=== PATIENT | male | born 1945 | race Caucasian/White ===

== ENCOUNTER 2023-06-20 08:39 | Outpatient (REF) | payer MEDICARE, SELFPAY ==
[2023-06-20 09:45] LABS: MANUAL DIFF FLAG NO
[2023-06-20 09:51] LABS: Basophils Absolute Auto 0.1 X10*3/uL (0.0-0.2); Basophils Percent Auto 0.7 % (0-2); Eosinophils Absolute Auto 0.4 X10*3/uL (0.0-0.4); Eosinophils Percent Auto 5.8 % (0-4); Hematocrit 51.6 % (42.0-52.0); Hemoglobin 17.8 g/dl (14.0-18.0); Imm Gran Abs Auto 0.04 X10*3/uL (0.00-0.03); Imm Gran Pct Auto 0.6 % (0.0-0.4); Lymphocytes Absolute Auto 1.5 X10*3/uL (1.2-4.9); Mean Corpuscular HGB Conc 34.5 g/dl (31.0-36.0); Mean Corpuscular Hemoglobin 30.7 pg (27.0-33.0); Mean Platelet Volume 9.7 fL (9.4-12.4); Monocytes Absolute Auto 0.6 X10*3/uL (0.1-1.2); Monocytes Percent Auto 8.9 % (2-11); Neutrophils Absolute Auto 4.5 x10*3/uL (2.0-8.3); Platelet Count 257 X10*3/uL (160-400); Red Cell Distribution Width 12.8 % (11.0-16.0); White Blood Count 7.2 X10*3/uL (4.8-10.8)
[2023-06-20 10:03] LABS: VBG Base Excess 4.4 mmol/L; VBG HCO3 31 mmol/L (22-26); VBG pCO2 51 mmHg; VBG pH 7.38 (7.32-7.43); VBG pO2 34 mmHg
[2023-06-20 10:04] LABS: Venous Blood Gas Refer to POC result
[2023-06-20 10:15] LABS: Anion Gap 12 (12-20); Blood Urea Nitrogen 14 mg/dL (9-16); Carbon Dioxide 30 mmol/L (22-29); Chloride 98 mmol/L (96-108); Estimated Glomerular Filt Rate > 60; Glucose Random 117 mg/dL (60-115); Iron 124 mcg/dL (45-160); Percent Iron Saturation 38 % (15-50); Potassium 5.1 mmol/L (3.3-5.1); Sodium 135 mmol/L (135-145); Total Iron Binding Capacity 326 mcg/dL (228-428); Unsaturated Iron Binding 202 ug/dL
[2023-06-20 10:34] LABS: Erythrocyte Sedimentation Rate 2 MM/HR (0-15)
== END 2023-06-20 08:40 | disposition home or self-care (01) ==
LOC: HO.LAB 08:39
PROVIDERS: PCP Pediatrics; Visit Provider Hospitalist
DX: R06.09 Other forms of dyspnea (principal); G47.33 Obstructive sleep apnea (adult) (pediatric); D75.1 Secondary polycythemia; J30.89 Other allergic rhinitis
CPT/HCPCS: 36415; 80048; 82803; 83540; 85025; 85652; 94618

== ENCOUNTER 2023-06-20 08:39 | Outpatient (AMB) | payer MEDICARE, SELFPAY ==
--- NOTE | 2023-06-20 08:44 | A.OFFVIS_ITS ---
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 The patient is a 77-year-old gentleman with a history fibrillation and status post pacemaker who presents with worsening dyspnea on exertion. The dyspnea is moderate severity with minimal activity. These are progressively getting worse. He was evaluated by his calculating machine operator without any significant findings. He is now scheduled for l evel 3 CPAP at at [facility]. In the meantime he has not had any pulmonary evaluation as of yet. The patient states that he has not had any significant exposures. He has a hobby of bones eyes. Although at denies any fumes or toxins. 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 The patient has not using inhaler. Denies any wheezing. During the office visit we did go for brief walking oximetry. The patient did develop significant dyspnea with dyspnea score 7/10 while at ambulating quickly the heart rate did go up to about 130 beats per minute. It appeared to be sinus. The patient felt better at rest. On examination he also had a prolonged expiratory phase and potentially now a obstruction. Not clear feels upper airway wheezing or small airways disease. Still I do believe that he will benefit from starting a bronchodilator. We have to be careful with his cardiac history and his tachycardia. Will go ahead and place him on a long-acting muscarinic antagonist while we wait for his pulmonary function studies. The patient also has some small knee of the nails beds. Therefore we did talk about the importance of iron and checking his CBC make sure that he is not anemic or iron deficiency that can also cause shortness of breath. [facility] Medical History (Updated 06/20/23 @ 20:57 by Sam King MD) MEKHI on CPAP Dyspnea Social History (Updated 06/20/23 @ 08:52 by CIARA Mccain) Patient Tobacco Use Status: Never used Tobacco Review of Systems Const Denies fatigue and Denies fever(s) Eyes Reports no additional complaints and Denies change in vision Card Denies chest pain and Reports dyspnea on exertion Resp Reports dyspnea on exertion and Denies wheezing GI Reports no additional complaints Musc Reports no additional complaints Skin/Breast Denies rash Neuro Reports no additional complaints Endo Denies fatigue Olaf/Lymph Denies lymphadenopathy Aller/Immun Denies wheezing Physical Exam Vital Signs: Last Vital Signs Pulse 89 06/20/23 08:47 BP 142/80 H 06/20/23 08:47 Pulse Ox 97 06/20/23 08:47 Oxygen Delivery Method Room Air 06/20/23 08:47 BMI result Body Mass Index 31.6 Const General: comfortable HEENT Head: Yes normocephalic Neck Neck: Yes supple Chest Chest palpation & inspection: normal inspection of the chest Resp Effort & Inspection: normal respiratory effort and prolonged expiratory phase Auscultation: diminished lung sounds Cardio Rate: tachycardic Rhythm: regular rhythm Heart sounds: S1 normal heart sound present and S2 normal heart sound present GI Palpation (GI): Soft to palpation Skin General skin exam: no rashes or lesions noted Extrem General: Yes no clubbing, cyanosis or edema Office Procedures 6 Minute Walk Time:: 21:00 SPO2 % at rest: 99 Pulse at rest: 89 SPO2 % during excercise: 97 Pulse during excercise: 130 Distance in yards walked: 200 Yane Score: 7 28915 - 6 Minute Walk Assessment & Plan Assessment & Plan (1) Dyspnea: Comment: Multifactorial: will assess to an obstructive process, underlying cardiac disease. Code(s): R06.00 - Dyspnea, unspecified Qualifiers: Dyspnea type: dyspnea on exertion Qualified Code(s): R06.09 - Other forms of dyspnea (2) MEKHI on CPAP: Code(s): G47.33 - Obstructive sleep apnea (adult) (pediatric) Plan Start Spiriva daily PFT's Need to review CXR Bloodwork continue CPAP therapy, should bring the CPAP to the next visit to download Awaiting level 3 CPET in [facility] F/U 6-8 weeks Orders: Orders Erythrocyte Sedimentation Rate Today R06.00 - Dyspnea, unspecified Complete Blood Count Auto Diff Today R06.00 - Dyspnea, unspecified IRON PROFILE Today R06.00 - Dyspnea, unspecified Basic Metabolic Panel Today R06.00 - Dyspnea, unspecified Venous Blood Gas Today R06.00 - Dyspnea, unspecified Medications: New tiotropium bromide 2.5 mcg/actuation (Spiriva Respimat) 2 puffs inhalation DAILY 30 days 1 ea 11RF Coding Level of Care Code New Pt Level 4 (86781) Diagnoses Dyspnea on exertion R06.09 Dyspnea type: dyspnea on exertion MEKHI on CPAP G47.33 CPT Codes Coding ([id number]) Time Spent (min) 40
[2023-06-20 08:47] VITALS: BP 142/80; PULSE 89; O2SAT 97; BMI 31.6
[2023-06-20 21:00] VITALS: PULSE 89; O2SAT 99
== END 2023-06-20 09:13 | disposition home or self-care (01) ==
PROVIDERS: PCP Pediatrics; Visit Provider Hospitalist
DX: R06.09 Other forms of dyspnea (principal); G47.33 Obstructive sleep apnea (adult) (pediatric)
CPT/HCPCS: 94618; 99204

== ENCOUNTER 2023-06-24 07:19 | Outpatient (REF) | payer MEDICARE, SELFPAY ==
--- NOTE | 2023-06-24 | PFT_ITS ---
FLOWS: 1. FEV1 86% of predicted at 2.31 L. 2. FVC 86% of predicted at 3.23 L. 3. FEV1 to FVC ratio of 0.72. 4. No bronchodilator response. LUNG VOLUMES: 1. Total lung capacity 81% of predicted at 5.27 L. 2. Residual volume 75% of predicted at 1.82 L. 3. Slow vital capacity 85% of predicted at 3.45 L. 4. Expiratory reserve volume 27% of predicted at 0.29 L. 5. Diffusion capacity is mildly decreased, diffusion capacity corrects to normal after adjustment for alveloar ventilation. IMPRESSION: Mild obstructive ventilatory defect with no bronchodilator response. Decreased expiratory reserve volume suggests extrathoracic restriction likely secondary to abdominal obesity. Nic Hernandez MD AP/MODL / [id number]
== END 2023-06-24 07:20 | disposition home or self-care (01) ==
LOC: HO.RESP 07:19
PROVIDERS: PCP Pediatrics; Visit Provider Hospitalist
DX: R05.9 Cough, unspecified (principal); R06.00 Dyspnea, unspecified; G47.33 Obstructive sleep apnea (adult) (pediatric)
CPT/HCPCS: 94010; 94727; 94729

== ENCOUNTER → 2023-06-24 07:20 | Outpatient (BNV) | payer MEDICARE, SELFPAY | PROVIDERS: PCP Pediatrics; Visit Provider Internal Medicine Pulmonary Disease | DX: R06.09 Other forms of dyspnea (principal) | CPT/HCPCS: 94060; 94727; 94729 ==

== ENCOUNTER 2023-07-14 10:52 | Outpatient (AMB) | payer MEDICARE, SELFPAY ==
[2023-07-14 10:59] VITALS: PULSE 72; O2SAT 96; BMI 31.3
--- NOTE | 2023-07-14 10:59 | A.OFFVIS_ITS ---
Intake Vital Signs 07/14/23 10:59 Height 5 ft 7 in Weight 200 lb BMI 31.3 Pulse 72 Pulse Source Pulse Oximeter Pulse Oximetry (%) 96 Oxygen Delivery Method Room Air Intake Visit Reasons: PFT Results Presentation Designer Required: No Allergies Penicillins Adverse Reaction (Severe, Verified 07/14/23 11:00) Rash HPI HPI Comments History of Present Illness Details The patient is a 77-year-old gentleman with a history fibrillation and status post pacemaker who presents with worsening dyspnea on exertion. The dyspnea is moderate severity with minimal activity. These are progressively getting worse. He was evaluated by his [employer]ix administrator without any significant findings. He is now scheduled for level 3 CPAP at at [facility]. In the meantime he has not had any pulmonary evaluation as of yet. The patient states that he has not had any significant exposures. He has a hobby of bones eyes. Although at denies any fumes or toxins. 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 The patient has not using inhaler. Denies any wheezing. During the office visit we did go for brief walking oximetry. The patient did develop significant dyspnea with dyspnea score 7/10 while at ambulating quickly the heart rate did go up to about 130 beats per minute. It appeared to be sinus. The patient felt better at rest. On examination he also had a prolonged expiratory phase and potentially now a obstruction. Not clear feels upper airway wheezing or small airways disease. Still I do believe that he will benefit from starting a bronchodilator. We have to be careful with his cardiac history and his tachycardia. Will go ahead and place him on a long-acting muscarinic antagonist while we wait for his pulmonary function studies. The patient also has some small knee of the nails beds. Therefore we did talk about the importance of iron and checking his CBC make sure that he is not anemic or iron deficiency that can also cause shortness of breath. 07/14/2023 the patient is here for a pulmonary follow-up visit. The patient did start taking the Spiriva. He has not see any significant changes in his breathing however. He does have a CPAP scheduled but is not level 3 is actually level 1. he should be having that in the next few weeks. In the meantime we did review his pulmonary function studies. Appears that he has obstructive process with some reversibility. 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 I do believe the patient should stay on the Spiriva for this reason. We can also maximize his respiratory therapy but depending on the CPAP we can discuss that later on. I also did review his x-ray from [facility] which demonstrated no acute disease. However, he did have a CT scan of the coronary arteries back in 2019 which demonstrated a pulmonary nodule approximately 4 mm in size. Therefore, the patient should have a repeat CT scan to follow-up with his pulmonary nodule. The patient also has been using CPAP. The CPAP therapy has been affecting beneficial. Currently in APAP his AHI is below 1 which is reassuring. He does have cough can chest congestion in the morning. Likely from sinus congestion. Will go ahead and provide him with the Neti bottle and also I steroid nasal spray that he can use in the morning in order to try to alleviate some of the nasal congestion that is resulting in the significant productive cough in the morning. We also reviewed his blood work from [facility]. Appears that he has some degree of polycythemia of unclear significance. Will go ahead and request a an overnight oximetry to assess his oxygen requirements at nighttime while using CPAP to make sure that he does not have any significant nocturnal hypoxia. [facility] Medical History (Updated 07/14/23 @ 20:16 by Sam King MD) Polycythemia Chronic rhinitis Pulmonary nodule Asthma-COPD overlap syndrome MEKHI on CPAP Dyspnea Social History (Updated 06/20/23 @ 08:52 by CIARA Mccain) Patient Tobacco Use Status: Never used Tobacco Review of Systems Const Denies fatigue and Denies fever(s) Eyes Reports no additional complaints and Denies change in vision Card Denies chest pain and Reports dyspnea on exertion Resp Reports dyspnea on exertion and Denies wheezing GI Reports no additional complaints Musc Reports no additional complaints Skin/Breast Denies rash Neuro Reports no additional complaints Endo Denies fatigue Olaf/Lymph Denies lymphadenopathy Aller/Immun Denies wheezing Physical Exam Vital Signs: Last Vital Signs Pulse 72 07/14/23 10:59 Pulse Ox 96 07/14/23 10:59 Oxygen Delivery Method Room Air 07/14/23 10:59 BMI result Body Mass Index 31.3 Const General: comfortable HEENT Head: Yes normocephalic Neck Neck: Yes supple Chest Chest palpation & inspection: normal inspection of the chest Resp Effort & Inspection: normal respiratory effort and prolonged expiratory phase Auscultation: diminished lung sounds Cardio Rate: tachycardic Rhythm: regular rhythm Heart sounds: S1 normal heart sound present and S2 normal heart sound present GI Palpation (GI): Soft to palpation Skin General skin exam: no rashes or lesions noted Extrem General: Yes no clubbing, cyanosis or edema Assessment & Plan Assessment & Plan (1) Dyspnea: Comment: Multifactorial: + obstructive process,? underlying cardiac disease, +body habitus, +deconditioning. Code(s): R06.00 - Dyspnea, unspecified Qualifiers: Dyspnea type: dyspnea on exertion Qualified Code(s): R06.09 - Other forms of dyspnea (2) MEKHI on CPAP: Code(s): G47.33 - Obstructive sleep apnea (adult) (pediatric) (3) Asthma-COPD overlap syndrome: Code(s): J44.89 - Other specified chronic obstructive pulmonary disease (4) Pulmonary nodule: Comment: noted on CT coronary angiogram Code(s): R91.1 - Solitary pulmonary nodule (5) Chronic rhinitis: Code(s): J31.0 - Chronic rhinitis (6) Polycythemia: Code(s): D75.1 - Secondary polycythemia Plan continue Spiriva daily continue CPAP therapy neti bottle prior to APAP overnight oximetry on RA on CPAP Fluticasone nasal spray Awaiting level [address] chest 2-3 months to evaluate pulmonary nodule noted on CT coronary 2020 at [facility] F/U 3 months Orders: Orders CT chest wo IV con 2 Months R91.1 - Solitary pulmonary nodule Overnight Pulse Oximetry Today R91.1 - Solitary pulmonary nodule Medications: New fluticasone propionate 50 mcg/actuation 2 sprays intranasal DAILY 15.8 mL 11RF 30 days J31.0 - Chronic rhinitis Coding Level of Care Code Est Pt Level 5 (22764) Diagnoses Dyspnea on exertion R06.09 Dyspnea type: dyspnea on exertion MEKHI on CPAP G47.33 Asthma-COPD overlap syndrome J44.89 Pulmonary nodule R91.1 Chronic rhinitis J31.0 Polycythemia D75.1 Time Spent (min) 45
== END 2023-07-14 11:37 | disposition home or self-care (01) ==
PROVIDERS: PCP Pediatrics; Visit Provider Hospitalist
DX: R06.09 Other forms of dyspnea (principal); G47.33 Obstructive sleep apnea (adult) (pediatric); J44.89 Other specified chronic obstructive pulmonary disease; R91.1 Solitary pulmonary nodule; J31.0 Chronic rhinitis; D75.1 Secondary polycythemia
CPT/HCPCS: 99215

== ENCOUNTER → 2023-07-14 10:52 | Outpatient (BNVA) | payer MEDICARE, SELFPAY | PROVIDERS: PCP Pediatrics; Visit Provider Hospitalist | DX: J44.89 Other specified chronic obstructive pulmonary disease (principal); J31.0 Chronic rhinitis; R06.09 Other forms of dyspnea; R91.1 Solitary pulmonary nodule; D75.1 Secondary polycythemia; G47.33 Obstructive sleep apnea (adult) (pediatric); Z79.899 Other long term (current) drug therapy; Z99.89 Dependence on other enabling machines and devices | CPT/HCPCS: 99212 ==

== ENCOUNTER 2023-10-28 13:41 | Outpatient (REF) | payer MEDICARE, SELFPAY ==
--- NOTE | ~2023-10-28 | CT_ITS ---
EXAMINATION: CT CHEST WITHOUT CONTRAST CLINICAL INFORMATION: Solitary pulmonary nodule. COMPARISON: None available. TECHNIQUE: Multidetector volumetric CT imaging of the chest was done. Axial MIP volume rendering provided. Sagittal and coronal reformatted images were obtained. This CT examination was performed using dose optimization techniques as appropriate, variously including the following: *Automated exposure control *Adjustment of mA and/or kV according to patient size (this includes techniques or standardized protocols for targeted exams where dose is matched to indication/reason for exam; i.e. extremities or head) *Use of iterative reconstruction technique DLP: 197 mGy-cm FINDINGS: LUNGS: Mild centrilobular emphysema. 8 mm lobulated mostly solid nodule left lower lobe on image 314 of series 7. Scattered areas of mucus plugging. No focal consolidation. Central airways are patent. MEDIASTINUM: No axillary, hilar or mediastinal lymphadenopathy. Great vessels are of normal caliber. Heart size is normal. No pericardial effusion. Left chest wall permanent pacing device. CORONARY ARTERY CALCIFICATION: Marked. PLEURA: There is no pleural effusion. No pleural mass or thickening. UPPER ABDOMEN: Small hiatal hernia. No adrenal mass. OSSEOUS STRUCTURES: No destructive bone lesions. CT/CT chest wo IV con IMPRESSION: 8 mm lobulated mostly solid nodule left lower lobe. No prior studies available for comparison. Follow-up imaging in 6-12 months is advised.
== END 2023-10-28 13:42 | disposition home or self-care (01) ==
LOC: HO.CT 13:41
PROVIDERS: PCP Pediatrics; Visit Provider Hospitalist
DX: R91.1 Solitary pulmonary nodule (principal)
CPT/HCPCS: 71250

== ENCOUNTER 2023-11-04 10:15 | Outpatient (AMB) | payer MEDICARE, SELFPAY ==
--- NOTE | 2023-11-04 10:18 | A.OFFVIS_ITS ---
Intake Vital Signs 11/04/23 10:24 Height 5 ft 7 in Weight 198 lb BMI 31.0 BP 124/60 Blood Pressure Location Lt brachial Position Sitting Pulse 82 Pulse Source Pulse Oximeter Pulse Oximetry (%) 98 Oxygen Delivery Method Room Air Intake Visit Reasons: COPD/CT Chest Follow Up Auto Mechanic Supervisor Required: No Allergies Penicillins Adverse Reaction (Severe, Verified 11/04/23 10:27) Rash HPI HPI Comments History of Present Illness Details The patient is a 78-year-old gentleman with a history fibrillation and status post pacemaker who presents with worsening dyspnea on exertion. The dyspnea is moderate severity with minimal activity. These are progressively getting worse. He was evaluated by his mergers and acquisitions associate without any significant findings. He is now scheduled for level 3 CPAP at at [facility]. In the meantime he has not had any pulmonary evaluation as of yet. The patient states that he has not had any significant exposures. He has a hobby of bones eyes. Although at denies any fumes or toxins. 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 The patient has not using inhaler. Denies any wheezing. During the office visit we did go for brief walking oximetry. The patient did develop significant dyspnea with dyspnea score 7/10 while at ambulating quickly the heart rate did go up to about 130 beats per minute. It appeared to be sinus. The patient felt better at rest. On examination he also had a prolonged expiratory phase and potentially now a obstruction. Not clear feels upper airway wheezing or small airways disease. Still I do believe that he will benefit from starting a bronchodilator. We have to be careful with his cardiac history and his tachycardia. Will go ahead and place him on a long-acting muscarinic antagonist while we wait for his pulmonary function studies. The patient also has some small knee of the nails beds. Therefore we did talk about the importance of iron and checking his CBC make sure that he is not anemic or iron deficiency that can also cause shortness of breath. 07/14/2023 the patient is here for a pulmonary follow-up visit. The patient did start taking the Spiriva. He has not see any significant changes in his breathing however. He does have a CPAP scheduled but is not level 3 is actually level 1. he should be having that in the next few weeks. In the meantime we did review his pulmonary function studies. Appears that he has obstructive process with some reversibility. 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 I do believe the patient should stay on the Spiriva for this reason. We can also maximize his respiratory therapy but depending on the CPAP we can discuss that later on. I also did review his x-ray from [facility] which demonstrated no acute disease. However, he did have a CT scan of the coronary arteries back in 2019 which demonstrated a pulmonary nodule approximately 4 mm in size. Therefore, the patient should have a repeat CT scan to follow-up with his pulmonary nodule. The patient also has been using CPAP. The CPAP therapy has been affecting beneficial. Currently in APAP his AHI is below 1 which is reassuring. He does have cough can chest congestion in the morning. Likely from sinus congestion. Will go ahead and provide him with the Neti bottle and also I steroid nasal spray that he can use in the morning in order to try to alleviate some of the nasal congestion that is resulting in the significant productive cough in the morning. We also reviewed his blood work from [facility]. Appears that he has some degree of polycythemia of unclear significance. Will go ahead and request a an overnight oximetry to assess his oxygen requirements at nighttime while using CPAP to make sure that he does not have any significant nocturnal hypoxia. 11/04/2023 the patient is here for a pulmo nary follow-up visit. The patient is doing well from a respiratory status. Denies any wheezing or any cough. Does take his inhalers but not on a regular basis. The patient did undergo a CT scan of the chest which we personally reviewed. It appears that he has a left lower lobe pulmonary nodule measuring between 8-9 mm in size. It appears that back in 2019 this nodule was only measuring 4-5 mm in size. Based on the increasing size the patient will benefit from a PET scan. Because of the location of this nodule be difficult to biopsy. Therefore if the PET scan is positive then it will be more of incentive to either resected or biopsy. If the PET scan is not significantly avid then we can continue to monitor it. We can also discuss him at tumor conference. The patient continues with CPAP therapy that has been affecting beneficial. He was supposed to have an overnight oximetry on the CPAP and I do not see the results available as of yet. Seems like it is doing better anyways will hold off at this time. [facility] Medical History (Updated 07/14/23 @ 20:16 by Sam King MD) Polycythemia Chronic rhinitis Pulmonary nodule Asthma-COPD overlap syndrome MEKHI on CPAP Dyspnea Social History (Updated 06/20/23 @ 08:52 by CIARA Mccain) Patient Tobacco Use Status: Never used Tobacco Review of Systems Const Denies fatigue and Denies fever(s) Eyes Reports no additional complaints and Denies change in vision Card Denies chest pain and Reports dyspnea on exertion Resp Reports dyspnea on exertion and Denies wheezing GI Reports no additional complaints Musc Reports no additional complaints Skin/Breast Denies rash Neuro Reports no additional complaints Endo Denies fatigue Olaf/Lymph Denies lymphadenopathy Aller/Immun Denies wheezing Physical Exam Vital Signs: Last Vital Signs Pulse 82 11/04/23 10:24 BP 124/60 11/04/23 10:24 Pulse Ox 98 11/04/23 10:24 Oxygen Delivery Method Room Air 11/04/23 10:24 BMI result Body Mass Index 31.0 Const General: comfortable HEENT Head: Yes normocephalic Neck Neck: Yes supple Chest Chest palpation & inspection: normal inspection of the chest Resp Effort & Inspection: normal respiratory effort Auscultation: diminished lung sounds Cardio Rate: tachycardic Rhythm: regular rhythm Heart sounds: S1 normal heart sound present and S2 normal heart sound present GI Palpation (GI): Soft to palpation Skin General skin exam: no rashes or lesions noted Extrem General: Yes no clubbing, cyanosis or edema Results Reviewed Results Reviewed: Personally reviewed CT coronary from [address] chest with interval increase in the Left sided pulmonary nodule Assessment & Plan Assessment & Plan (1) Dyspnea: Comment: Multifactorial: + obstructive process,? underlying cardiac disease, +body habitus, +deconditioning. Code(s): R06.00 - Dyspnea, unspecified Qualifiers: Dyspnea type: dyspnea on exertion Qualified Code(s): R06.09 - Other forms of dyspnea (2) MEKHI on CPAP: Code(s): G47.33 - Obstructive sleep apnea (adult) (pediatric) (3) Asthma-COPD overlap syndrome: Code(s): J44.89 - Other specified chronic obstructive pulmonary disease (4) Pulmonary nodule: Comment: noted on CT coronary angiogram Code(s): R91.1 - Solitary pulmonary nodule (5) Chronic rhinitis: Code(s): J31.0 - Chronic rhinitis (6) Polycythemia: Code(s): D75.1 - Secondary polycythemia Plan continue Spiriva daily continue CPAP therapy PET/CT to evaluate the increasing LLL nodule now measuring 8-9mm Fluticasone nasal spray F/U 3-6 months Orders: Orders PET CT fusion skull to thigh Today R91.1 - Solitary pulmonary nodule Coding Level of Care Code Est Pt Level 4 (05049) Diagnoses Dyspnea on exertion R06.09 Dyspnea type: dyspnea on exertion MEKHI on CPAP G47.33 Asthma-COPD overlap syndrome J44.89 Pulmonary nodule R91.1 Chronic rhinitis J31.0 Polycythemia D75.1 Time Spent (min) 18
[2023-11-04 10:24] VITALS: BP 124/60; PULSE 82; O2SAT 98; BMI 31.0
== END 2023-11-04 11:02 | disposition home or self-care (01) ==
PROVIDERS: PCP Pediatrics; Visit Provider Hospitalist
DX: R06.09 Other forms of dyspnea (principal); G47.33 Obstructive sleep apnea (adult) (pediatric); J44.89 Other specified chronic obstructive pulmonary disease; R91.1 Solitary pulmonary nodule; J31.0 Chronic rhinitis; D75.1 Secondary polycythemia
CPT/HCPCS: 99214

== ENCOUNTER → 2023-11-04 10:15 | Outpatient (BNVA) | payer MEDICARE, SELFPAY | PROVIDERS: PCP Pediatrics; Visit Provider Hospitalist | DX: J44.89 Other specified chronic obstructive pulmonary disease (principal); J31.0 Chronic rhinitis; R06.09 Other forms of dyspnea; G47.33 Obstructive sleep apnea (adult) (pediatric); D75.1 Secondary polycythemia | CPT/HCPCS: 99212 ==

== ENCOUNTER 2024-01-17 10:03 | Outpatient (REF) | payer MEDICARE, SELFPAY ==
--- NOTE | ~2024-01-17 | PE_ITS ---
EXAMINATION: FLUORINE-18 FDG PET/CT SCAN CLINICAL INFORMATION: Initial treatment management. Subcentimeter predominantly solid lobulated central left lower lobar lung nodule seen on recent CT scan of the chest done on 10/28/2023. For follow-up. TECHNIQUE: 53 minutes following the intravenous administration of 23.3 mCi of fluorine 18 FDG, images from the base of skull to mid-thigh were obtained using a combined PET/CT scanner with CT scan based attenuation correction. No intravenous contrast was administered. Transverse, coronal, sagittal, and volume reconstruction projections were obtained. The patient's blood glucose as determined by a finger stick, was 131 mg/dL immediately prior to injection. The radiotracer was injected intravenously through the right antecubital superficial vein, without any complications. Total CT exam dose-length product 875.85 mGy-cm. * These CT images were obtained using dose optimization techniques as appropriate, variously including the following: Automated exposure control * Adjustment of mA and/or kV according to patient size (this includes techniques or standardized protocols for targeted exams where dose is matched to indication/reason for exam; i.e. extremities or head) * Use of iterative reconstruction technique COMPARISON: CT scan of the chest done on 10/28/2023. FINDINGS: SUV max REFERENCE: Blood: 2.3 (114/349). Liver: 3.5 (168/349). HEAD AND NECK: No abnormal radiotracer uptake. No large intracranial hemorrhage, acute territorial infarct or significant shift of midline structures. CHEST: Ports and Devices: Left subclavian triple lead pacemaker with intact hardware. Lungs: Previously documented subcentimeter predominantly solid left lower lobar central lung nodule is not optimally visualized likely secondary to motion artifact its small size. Specifically, no evidence of any tracer avidity is visualized in the vicinity of the previously documented lung nodule. The remainder of the lung richard bilaterally also do not show any tracer avid disease on either side. Pleura: No significant pleural effusion. Lymph Nodes: No tracer-avid mediastinal, hilar or internal mammary or axillary lymphadenopathy. Mediastinum: There is no significant pericardial effusion/thickening. Breasts/Chest Wall: No abnormal radiotracer uptake. ABDOMEN/PELVIS: Liver/Biliary System: No focal tracer-avid liver lesion. The gallbladder appears unremarkable. Pancreas: Normal.No pancreatic ductal dilatation. Spleen: No abnormal radiotracer uptake. No evidence of splenomegaly. Adrenal Glands: No abnormal radiotracer uptake. Kidneys: No hydronephrosis, hydroureter or renal calculi bilaterally. Bowel: There is no significant bowel dilatation to suggest obstruction. Small sliding hiatal hernia. Specific note is made of focal tracer avidity associated with underlying focal soft tissue thickening at distalmost part of the descending colon at left iliac fossa with SUV max of 5.1 (260/349), for which direct visualization is recommended. Lymph Nodes: No tracer avid retroperitoneal, mesenteric or pelvic and/or groin lymphadenopathy. Pelvic Organs: The urinary bladder is underdistended. Abnormal enlarged prostate. MUSCULOSKELETAL: No suspicious focal tracer avid disease. VASCULAR: Calcific atherosclerotic disease of the aorta and its branches including dense coronary arterial calcifications. No evidence of aneurysm. THE SITE(S) OF MOST INTENSE FDG AVIDITY AND SUV MAX: Distal most descending colon associated with underlying focal soft tissue thickening with SUV max of 5.1. PET/PET CT fusion skull to thigh IMPRESSION: Compared to most recent prior CT scan of the chest done on 10/28/2023: * The index subcentimeter predominantly solid central left lower lobar lung nodule is not optimally visualized likely secondary to motion artifacts, its small size or combination thereof. However, no evidence of any discrete focal tracer avidity is visualized in the vicinity of the previously documented lung nodule. Please note that some primary lung malignancies such as adenocarcinoma in situ, well-differentiated adenocarcinoma including mucinous adenocarcinoma, minimally invasive adenocarcinoma, and low-grade carcinoids may show minimal or no FDG avidity. Close follow-up diagnostic CT scan of the chest is recommended to ensure stability and/or disease progression. * Incidental note is made of focal tracer avidity associated with underlying focal soft tissue thickening at distal most part of the descending colon with SUV max of 5.1, may represent evolving neoplasm (adenoma-carcinoma spectrum) for which direct visualization/colonoscopy is recommended. * Calcific atherosclerotic disease of the aorta including dense coronary artery calcifications and small sliding hiatal hernia.
== END 2024-01-17 10:04 | disposition home or self-care (01) ==
LOC: HO.PET 10:03
PROVIDERS: PCP Pediatrics; Visit Provider Hospitalist
DX: Z13.89 Encounter for screening for other disorder (principal)

== ENCOUNTER 2024-06-05 08:47 | Outpatient (AMB) | payer MEDICARE, SELFPAY ==
--- NOTE | 2024-06-05 08:50 | MHC.OFFVIS ---
Vital Signs 06/05/24 08:53 Height 5 ft 7 in Weight 203 lb 14.841 oz BMI 31.9 BP 132/70 Blood Pressure Location Lt brachial Position Sitting Pulse 74 Pulse Source Pulse Oximeter Pulse Oximetry (%) 99 Oxygen Delivery Method Room Air Intake Visit Reasons: copd Local Bulk Driver Required: No Allergies Penicillins Adverse Reaction (Severe, Verified 06/05/24 08:55) Rash HPI Comments Details: The patient is a 78-year-old gentleman with a history fibrillation and status post pacemaker who presents with worsening dyspnea on exertion. The dyspnea is moderate severity with minimal activity. These are progressively getting worse. He was evaluated by his mop machine operator without any significant findings. He is now scheduled for level 3 CPAP at at [facility]. In the meantime he has not had any pulmonary evaluation as of yet. The patient states that he has not had any significant exposures. He has a hobby of bones eyes. Although at denies any fumes or toxins. 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 The patient has not using inhaler. Denies any wheezing. During the office visit we did go for brief walking oximetry. The patient did develop significant dyspnea with dyspnea score 7/10 while at ambulating quickly the heart rate did go up to about 130 beats per minute. It appeared to be sinus. The patient felt better at rest. On examination he also had a prolonged expiratory phase and potentially now a obstruction. Not clear feels upper airway wheezing or small airways disease. Still I do believe that he will benefit from starting a bronchodilator. We have to be careful with his cardiac history and his tachycardia. Will go ahead and place him on a long-acting muscarinic antagonist while we wait for his pulmonary function studies. The patient also has some small knee of the nails beds. Therefore we did talk about the importance of iron and checking his CBC make sure that he is not anemic or iron deficiency that can also cause shortness of breath. 07/14/2023 the patient is here for a pulmonary follow-up visit. The patient did start taking the Spiriva. He has not see any significant changes in his breathing however. He does have a CPAP scheduled but is not level 3 is actually level 1. he should be having that in the next few weeks. In the meantime we did review his pulmonary function studies. Appears that he has obstructive process with some reversibility. 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 I do believe the patient should stay on the Spiriva for this reason. We can also maximize his respiratory therapy but depending on the CPAP we can discuss that later on. I also did review his x-ray from [facility] which demonstrated no acute disease. However, he did have a CT scan of the coronary arteries back in 2019 which demonstrated a pulmonary nodule approximately 4 mm in size. Therefore, the patient should have a repeat CT scan to follow-up with his pulmonary nodule. The patient also has been using CPAP. The CPAP therapy has been affecting beneficial. Currently in APAP his AHI is below 1 which is reassuring. He does have cough can chest congestion in the morning. Likely from sinus congestion. Will go ahead and provide him with the Neti bottle and also I steroid nasal spray that he can use in the morning in order to try to alleviate some of the nasal congestion that is resulting in the significant productive cough in the morning. We also reviewed his blood work from [facility]. Appears that he has some degree of polycythemia of unclear significance. Will go ahead and request a an overnight oximetry to assess his oxygen requirements at nighttime while using CPAP to make sure that he does not have any significant nocturnal hypoxia. 11/04/2023 the patient is here for a pulmonary follow-up visit. The patient is doing well from a respiratory status. Denies any wheezing or any cough. Does take his inhalers but not on a regular basis. The patient did undergo a CT scan of the chest which we personally reviewed. It appears that he has a left lower lobe pulmonary nodule measuring between 8-9 mm in size. It appears that back in 2019 this nodule was only measuring 4-5 mm in size. Based on the increasing size the patient will benefit from a PET scan. Because of the location of this nodule be difficult to biopsy. Therefore if the PET scan is positive then it will be more of incentive to either resected or biopsy. If the PET scan is not significantly avid then we can continue to monitor it. We can also discuss him at tumor conference. The patient continues with CPAP therapy that has been affecting beneficial. He was supposed to have an overnight oximetry on the CPAP and I do not see the results available as of yet. Seems like it is doing better anyways will hold off at this time. 06/05/2024 the patient is here for a pulmonary follow-up visit. Overall the patient has been doing well. He did undergo the PET scan. Pulmonary nodule did not show significant FDG activity. Although he did have FDG activity in the colon. Did go undergo a colonoscopy. He will need to have a repeat colonoscopy in 5-10 years. From a respiratory status the patient has been doing okay. He does have a prescription for Spiriva. He has not required rescue inhaler which is reassuring. He has been using the CPAP. CPAP therapy has been affecting beneficial. He does use it for more than 4 hours a night. At this point will plan to repeat the CT scan of the chest in the fall 2023. [facility] Medical History (Updated 07/14/23 @ 20:16 by Sam King MD) Polycythemia Chronic rhinitis Pulmonary nodule Asthma-COPD overlap syndrome MEKHI on CPAP Dyspnea Social History (Updated 06/20/23 @ 08:52 by CIARA Mccain) Patient Tobacco Use Status: Never used Tobacco Review of Systems Const Denies fatigue and Denies fever(s) Eyes Reports no additional complaints and Denies change in vision Card Denies chest pain and Denies dyspnea on exertion Resp Reports cough, Denies dyspnea on exertion and Denies wheezing GI Reports no additional complaints Musc Reports no additional complaints Skin/Breast Denies rash Neuro Reports no additional complaints Endo Denies fatigue Olaf/Lymph Denies lymphadenopathy Aller/Immun Denies wheezing Physical Exam Vital Signs: Last Vital Signs Pulse 74 06/05/24 08:53 BP 132/70 06/05/24 08:53 Pulse Ox 99 06/05/24 08:53 Oxygen Delivery Method Room Air 06/05/24 08:53 BMI result Body Mass Index 31.9 Const General: comfortable HEENT Head: Yes normocephalic Neck Neck: Yes supple Chest Chest palpation & inspection: normal inspection of the chest Resp Effort & Inspection: normal respiratory effort Auscultation: clear to auscultation bilaterally Cardio Rate: tachycardic Rhythm: regular rhythm Heart sounds: S1 normal heart sound present and S2 normal heart sound present GI Palpation (GI): Soft to palpation Skin General skin exam: no rashes or lesions noted Extrem General: Yes no clubbing, cyanosis or edema Assessment & Plan Assessment & Plan (1) Dyspnea: Comment: Multifactorial: + obstructive process,? underlying cardiac disease, +body habitus, +deconditioning. Code(s): R06.00 - Dyspnea, unspecified Category: Medical Qualifiers: Dyspnea type: dyspnea on exertion Qualified Code(s): R06.09 - Other forms of dyspnea (2) MKEHI on CPAP: Code(s): G47.33 - Obstructive sleep apnea (adult) (pediatric) Category: Medical (3) Asthma-COPD overlap syndrome: Code(s): J44.89 - Other specified chronic obstructive pulmonary disease Category: Medical (4) Pulmonary nodule: Comment: noted on CT coronary angiogram Code(s): R91.1 - Solitary pulmonary nodule Category: Medical (5) Chronic rhinitis: Code(s): J31.0 - Chronic rhinitis Category: Medical (6) Polycythemia: Code(s): D75.1 - Secondary polycythemia Category: Medical Plan continue Spiriva daily continue CPAP therapy CT chest Aug 2024 Fluticasone nasal spray F/U 8-12 months Orders: Orders CT chest wo IV con 2 Months R91.1 - Solitary pulmonary nodule Coding Level of Care Code Est Pt Level 4 (22441) Diagnoses Dyspnea on exertion R06.09 Dyspnea type: dyspnea on exertion MEKHI on CPAP G47.33 Asthma-COPD overlap syndrome J44.89 Pulmonary nodule R91.1 Chronic rhinitis J31.0 Polycythemia D75.1 Time Spent (min) 17
[2024-06-05 08:53] VITALS: BP 132/70; PULSE 74; O2SAT 99; BMI 31.9
== END 2024-06-05 09:35 | disposition home or self-care (01) ==
PROVIDERS: PCP Pediatrics; Visit Provider Hospitalist
DX: R06.09 Other forms of dyspnea (principal); G47.33 Obstructive sleep apnea (adult) (pediatric); J44.89 Other specified chronic obstructive pulmonary disease; R91.1 Solitary pulmonary nodule; J31.0 Chronic rhinitis; D75.1 Secondary polycythemia
CPT/HCPCS: 99214

== ENCOUNTER → 2024-06-05 08:47 | Outpatient (BNVA) | payer MEDICARE, SELFPAY | PROVIDERS: PCP Pediatrics; Visit Provider Hospitalist | DX: J44.89 Other specified chronic obstructive pulmonary disease (principal); R06.09 Other forms of dyspnea; R91.1 Solitary pulmonary nodule; G47.33 Obstructive sleep apnea (adult) (pediatric); J31.0 Chronic rhinitis; D75.1 Secondary polycythemia | CPT/HCPCS: 99212 ==

== ENCOUNTER 2024-08-13 10:06 | Outpatient (REF) | payer MEDICARE, SELFPAY ==
--- NOTE | ~2024-08-13 | CT_ITS ---
EXAMINATION: CT CHEST WITHOUT CONTRAST CLINICAL INFORMATION: Solitary pulmonary nodule. COMPARISON: PET/CT dated January 17, 2024. Chest CT dated October 28, 2023. TECHNIQUE: Multidetector volumetric CT imaging of the chest was done. Axial MIP volume rendering provided. Sagittal and coronal reformatted images were obtained. This CT examination was performed using dose optimization techniques as appropriate, variously including the following: *Automated exposure control *Adjustment of mA and/or kV according to patient size (this includes techniques or standardized protocols for targeted exams where dose is matched to indication/reason for exam; i.e. extremities or head) *Use of iterative reconstruction technique DLP: 23 mGy-cm FINDINGS: LUNGS: A 0.84 cm, lobulated left lower lobe lung nodule (image 367, series 7) does not appear significantly changed compared with October 28, 2023, by my measurements. No new lung nodule is identified. MEDIASTINUM: Heart normal in size. No pericardial effusion. Tips of left subclavian pulse generator device leads lie in right atrium, right ventricle, and a branch of the coronary sinus. Unremarkable appearance of the thyroid. No evidence of adenopathy by size criteria. CORONARY ARTERY CALCIFICATION: Severe. PLEURA: There is no pleural effusion. No pleural mass or thickening. AXILLA: No lymphadenopathy by size criteria. UPPER ABDOMEN: Unremarkable. OSSEOUS STRUCTURES: Unremarkable. CT/CT chest wo IV con IMPRESSION: A 0.84 cm, lobulated left lower lobe lung nodule does not appear significantly changed compared with October 28, 2023, by my measurements. Recommend follow-up chest CT in approximately 12 months to confirm stability, per Fleischner Society guidelines. Additional findings as above. Electronically signed by: Carl Gregorio MD 08/13/2024 01:44 PM DEJAN
== END 2024-08-13 10:07 | disposition home or self-care (01) ==
LOC: HO.CT 10:06
PROVIDERS: PCP Pediatrics; Visit Provider Hospitalist
DX: R91.1 Solitary pulmonary nodule (principal)
CPT/HCPCS: 71250

== ENCOUNTER 2025-06-05 08:22 | Outpatient (AMB) | payer MEDICARE, SELFPAY ==
--- OUTSIDE RECORDS SUMMARY | 2025-05-31 13:00 | XMS_ITS | Encounter Summary ---
Author Organization [facility] Address [address] [place] [address] [phone] Phone Care Team Providers Care Engineer Second Assistant Name Role Phone Carl Dawn MD Primary Care Provider Self-Referred, Patient Unavailable Unavailab le Encounter Details Date Type Department Care Team (Late st Contact Info) Description 05/31/2025 1:00 PM EDT Pre-Admission Testing [facility] Pre-Procedure Evaluation Department Please See Appointment Details [place] [phone] Unknown, Unknown, Anesthesia Record Procedure Summary Procedure Name Responsible Anesthesiologist Anesthesia Start Time Anesthesia Stop Time ARTHROSCOPIC REPAIR ROTATOR CUFF SHOULDER (Right) Events No events on file. Meds * Agents No agents on file. * Blood No blood administrations on file. Lines, Drains, and Airways Type Details Placement Removal Skin at Risk 06/28/22; 0809; Pres sure; Sacrum; mepiplex applied 06/28/22 0809 by Kalina Gibson, corporate executive chef Access Site 06/28/22; 1011; Ot her (comment); Pacer site; Left, Upper; Chest 06/28/22 1011 by Bear Lundberg RN documented in this encounter Social History Tobacco Use Types Packs/Day Years Used Date Smoking Tobacco: Never Smokeless Tobacco: Never Tobacco Cessation:Counseling Given: Not Answered Alcohol Use Standard Drinks/Week Comments Yes 3 (1 standard drink = 0.6 oz pur e alcohol) Rare, social Education Answer Date Recorded Are you interested in more education? Not on catarino e 01/29/2023 Are you concerned about learning? Not on file 01/29/2023 No 01/29/2023 No 01/29/2023 Digital Access Answer Date Recorded No 03/01/2023 No 03/01/2023 Reliable internet access at home? Not on file 03/01/2023 Device with a working camera? Not on file Sex and Gender Information Value Date Recorded Sex Assigned at Male 02/04/2022 8:08 AM EDT Legal Sex Male 7:57 AM EDT Gender Identity Male 02/04/2022 8:08 AM EDT Sexual Orientation Straight 02/04/2022 8: 08 AM EDT documented as of this encounter Last Filed Vital Signs Vital Sign Reading Time Taken Comments Blood Pressure - - Pulse - - Temperature - - Respiratory Rate - - Oxygen Saturation - - Inhaled Oxygen Concentration - - Weight 85.3 kg (188 lb) 05/31/2025 12:52 PM EDT Height 170.2 cm (5' 7.01 ) 05/31/2025 12:52 PM E DT Body Mass Index 29.44 05/31/2025 12:52 PM EDT documented in this encounter Progress Notes * Katy Eason RN - 05/31/2025 1:00 PM EDT [facility] Pre Procedure Nursing Note: Information obtained from patient or access service representative and the medical record. Reviewed the following information with the patient or patient's access service representative. Verbalized understanding. 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 Medications list with instructions for what to take and what to hold before surgery according to Adult Preoperative Medication Management Guidelines. Informed that more information could be found at the web site: [facility] preparing for surgery documented in this encounter Plan of Treatment Upcoming Encounters Date Type Department Care Team (Latest Contact Info) Description 10/23/2022 Procedure Pass [facility] Cardio EP Device Monitoring [address] [place] [address] 11/03/2022 Procedure Pass [facility] Cardio EP Device Monitoring [address] [place] [address] 01/18/2023 Procedure Pass [facility] Cardio EP Device Monitoring [address] [place] [address] 04/22/2023 Procedure Pass [facility] Cardio EP Device Monitoring [address] [place] [address] 05/09/2023 Procedure Pass [facility] Cardio EP Device Monitoring [address] [place] [address] 07/13/2023 Procedure Pass [facility] Cardio EP Device Monitoring [address] [place] [address] 09/21/2023 Procedure Pass [facility] Cardio EP Device Monitoring [address] [place] [address] 12/07/2023 Procedure Pass [facility] Cardio EP Device Monitoring [address] [place] [address] 02/14/2024 Procedure Pass [facility] Cardio EP Device Monitoring [address] [place] [address] 06/20/2024 Procedure Pass [facility] Cardio EP Device Monitoring [address] [place] [address] 01/11/2025 Procedure Pass [facility] Cardio EP Device Monitoring [address] [place] [address] 04/12/2025 Procedure Pass [facility] Cardio EP Device Monitoring [address] [place] [address] 04/12/2025 Procedure Pass [facility] Cardio EP Device Monitoring [address] [place] [address] 06/14/2025 Procedure Pass [facility] PERIOPERATIVE DEPT [address] [place] [phone] 06/14/2025 7:45 AM EDT Hospital Encounter [facility] PERIOPERATIVE DEPT [address] [place] [address] Kobe Delgado MD [address] [place] [phone] [email or web address] 06/14/2025 7:45 AM EDT Anesthesia Event [facility] PERIOPERATIVE DEPT [address] [place] [address] Mike Oscar MD [address] [place] [address] [place] [phone] [email or web address] [email or web address] Steiner, LUCIA [address] [place] [address] [email or web address] 06/14/2025 7:45 AM EDT - 06/14/2025 10:53 AM EDT Surgery [facility] PERIOPERATIVE DEPT [address] [place] [phone] Kobe Delgado MD [address] [phone] [email or web address] ARTHROSCOPIC REPAIR ROTATOR CUFF SHOULDER 06/26/2025 10:40 AM EDT Office Visit [facility] Department of Orthopaedic Surgery, Sports Medicine Service [address] [facility] [address] [place] [address] Kobe Delgado MD [address] [place] [phone] [email or web address] 07/26/2025 9:00 AM EDT Appointment [facility] Cardio EP Device Monitoring [address] [place] [address] Jenifer Castañeda MD, MS [address] [phone] [email or web address] 10/16/2025 11:00 AM EST Appointment [facility] Cardio EP Device Monitoring [address] [place] [address] Jenifer Castañeda MD, MS [address] [address] [email or web address] 10/16/2025 11:30 AM EST Office Visit [facility] [address] [place] [address] Jenifer Castañeda MD, MS [address] [address] [email or web address] Scheduled Procedures Name Priority Associated Diagnoses Date/Ti me ARTHROSCOPIC REPAIR ROTATOR CUFF SHOULDER Traumatic complete tear of right rotator cuff, subsequent encounter Axillary nerve palsy 06/14/2025 7:45 AM EDT documented as of this encounter Visit Diagnoses Not on filedocumented in this encounter Additional Health Concerns Assessment Noted Time PHQ-2 Depression Total Score: 0 05/12/20 11:03 AM EDT documented as of this encounter Care Teams Engineer Second Assistant Relationship Specialty Start Date End Date Carl Dawn MD [address] [place] [phone] PCP - General Internal Medicine 02/04/22 Self-Referred, Patient 01/18/23 documented as of this encounter Additional Source Comments The information contained in this document represents components of the legal health record. It is not the complete legal health record.[facility]
--- OUTSIDE RECORDS SUMMARY | 2025-05-31 23:59 | XMS_ITS | Continuity of Care Document ---
Author Organization [facility] Address [address] [place] [phone]- Care Team Providers Care Refrigeration Insulator Name Role Phone Nereyda LOZA, Carl Primary Care Physician Encounter [facility] [place] Date(s): 05/01/25 - 05/31/25 [facility] [address] [place] [phone]- Encounter Type: Triage Allergies, Adverse Reactions, Alerts Substance Criticality Severity Reaction Reaction Severity Status penicillins itching Active Medications amLODIPine 5 mg oral tablet 1 tablet, By Mouth, Daily, # 30 tablet, 11 Refills, Maintenance, 09/05/23 8:28:00 AM EST, [facility]/pharmacy #[id number], 170, cm, 06/08/23 10:30:00 EDT, Height, 88.8, kg, 03/21/23 13:52:00 EDT, Dry Weight Start Date: 09/05/23 Status: Ordered Medication Dispense Status: Completed Quantity: 30.0 Unit: tablet Total Allowed Fills: 12 Fills Dispensed: 0 CeleXA 10 mg oral tablet 10 mg, 1, tablet, By Mouth, Daily in AM, # 30 tablet, Refills 0, Maintenance, 08/01/18 8:56:33 AM EDT Start Date: 08/01/18 Status: Ordered Medication Dispense Status: Completed Quantity: 30.0 Unit: tablet Total Allowed Fills: 1 Fills Dispensed: 0 chlorthalidone 25 mg oral tablet See Instructions, TAKE 1/2 OF A TABLET BY MOUTH DAILY FOR 30 DAYS, # 45 tablet, Refills 2, Tot. Refills 2, Maintenance, 05/01/25 11:22:00 AM EDT, Instructions Replace Required Details, Route to Pharmacy Electronically, [facility]/pharmacy #[id number], 170, cm, 12/14/24 7:50:00 EDT, Height Start Date: 05/01/25 Status: Ordered Medication Dispense Status: Completed Quantity: 45.0 Unit: tablet Total Allowed Fills: 3 Fills Dispensed: 0 Citracal Caplets Plus D 1 tab, By Mouth, Daily in AM, 0 Refills, Maintenance, 08/01/18 8:57:46 AM EDT Start Date: 08/01/18 Status: Ordered Medication Dispense Status: Completed Total Allowed Fills: 1 Fills Dispensed: 0 clonazePAM 0.5 mg oral tablet 0.5 tablet = 0.25 mg, By Mouth, Daily, PRN Anxiety, 0 Refills, Maintenance, 08/01/18 8:57:07 AM EDT, Tablet Start Date: 08/01/18 Status: Ordered Medication Dispense Status: Completed Total Allowed Fills: 1 Fills Dispensed: 0 Eliquis 5 mg oral tablet 1 tablet = 5 mg, By Mouth, 2 times a day, # 180 tablet, 2 Refills, Maintenance, 01/18/25 2:12:00 PM EDT, Tablet, [facility]/pharmacy #[id number], Partial fill upon patient request if the prescription is for a schedule II opioid drug., 170, cm, 12/14/24 7:50:00 EDT, Height, 88.8, kg, 03/21/23 13:52:00 EDT, Dry Weight Start Date: 01/18/25 Status: Ordered Medication Dispense Status: Completed Quantity: 180.0 Unit: tablet Total Allowed Fills: 3 Fills Dispensed: 0 Eliquis 5 mg oral tablet 1 tablet, By Mouth, 2 times a day, # 180 tablet, 1 Refills, Maintenance, 07/23/24 7:35:00 AM EDT, [facility] STORE [id number], 170, cm, 03/28/24 10:35:00 EDT, Height, 88.8, kg, 03/21/23 13:52:00 EDT, Dry Weight Start Date: 07/23/24 Status: Ordered Medication Dispense Status: Completed Quantity: 180.0 Unit: tablet Total Allowed Fills: 1 Fills Dispensed: 0 fluconazole 100 mg oral tablet 2 tablet = 200 mg, By Mouth, Once, # 2 tablet, 0 Refills, Soft Stop, 06/27/24 5:14:00 PM EDT, [facility]/pharmacy #[id number], Partial fill upon patient request if the prescription is for a schedule II opioid drug., 170, cm, 03/28/24 10:35:00 EDT, Height, 88.8, kg, 03/21/23 13:52:00 EDT, Dry Weight Start Date: 06/27/24 Status: Ordered Medication Dispense Status: Completed Quantity: 2.0 Unit: tablet Total Allowed Fills: 1 Fills Dispensed: 0 irbesartan 300 mg oral tablet 1 tablet = 300 mg, By Mouth, Daily in AM, # 30 tablet, 0 Refills, Maintenance, 08/01/18 8:56:27 AM EDT, Tablet Start Date: 08/01/18 Status: Ordered Medication Dispense Status: Completed Quantity: 30.0 Unit: tablet Total Allowed Fills: 1 Fills Dispensed: 0 Jardiance 10 mg oral tablet 1 tablet = 10 mg, By Mouth, Daily in AM, # 30 tablet, 11 Refills, Maintenance, 04/27/24 12:49:00 PM EDT, Tablet, [facility]/pharmacy #[id number], Partial fill upon patient request if the prescription is for a schedule II opioid drug., 170, cm, 03/28/24 10:35:00 EDT, Height, 88.8, kg, 03/21/23 13:52:00 EDT, Dry Weight Start Date: 04/27/24 Status: Ordered Medication Dispense Status: Completed Quantity: 30.0 Unit: tablet Total Allowed Fills: 12 Fills Dispensed: 0 losartan 100 mg oral tablet 1 tablet = 100 mg, By Mouth, Daily, # 30 tablet, 0 Refills, Maintenance, 09/08/22 8:38:00 AM EST, Tablet, Partial fill upon patient request if the prescription is for a schedule II opioid drug. Start Date: 09/08/22 Status: Ordered Medication Dispense Status: Completed Quantity: 30.0 Unit: tablet Total Allowed Fills: 1 Fills Dispensed: 0 Mounjaro 5 mg/0.5 mL subcutaneous solution 0 Refills, Maintenance, 12/14/24 7:50:00 AM EDT, Partial fill upon patient request if the prescription is for a schedule II opioid drug. Start Date: 3/14/25 Status: Ordered Medication Dispense Status: Completed Total Allowed Fills: 1 Fills Dispensed: 0 Myrbetriq 50 mg oral tablet, extended release 1 tablet = 50 mg, By Mouth, Daily, 0 Refills, Maintenance, 03/21/23 1:55:00 PM EDT, Partial fill upon patient request if the prescription is for a schedule II opioid drug. Start Date: 03/21/23 Status: Ordered Medication Dispense Status: Completed Total Allowed Fills: 1 Fills Dispensed: 0 Ocuvite Extra 1 tablet, By Mouth, Daily, 0 Refills, Maintenance, 08/01/18 8:57:31 AM EDT Start Date: 08/01/18 Status: Ordered Medication Dispense Status: Completed Total Allowed Fills: 1 Fills Dispensed: 0 PreserVision AREDS 2 1 cap, By Mouth, Daily, 0 Refills, Maintenance, 06/08/23 8:16:00 AM EDT, Partial fill upon patient request if the prescription is for a schedule II opioid drug. Start Date: 06/08/23 Status: Ordered Medication Dispense Status: Completed Total Allowed Fills: 1 Fills Dispensed: 0 rosuvastatin 20 mg oral tablet 1 tablet = 20 mg, By Mouth, Daily at bedtime, # 30 tablet, 0 Refills, Maintenance, 08/01/18 8:56:44AM EDT, Tablet Start Date: 08/01/18 Status: Ordered Medication Dispense Status: Completed Quantity: 30.0 Unit: tablet Total Allowed Fills: 1 Fills Dispensed: 0 tiZANidine 2 mg oral tablet 2 mg, By Mouth, 3 times a day, PRN, not to exceed 3 doses/day, # 42 tablet, Refills 0, Tot. Refills0, Maintenance, Spasm, 08/30/18 3:53:47 PM EST, Print Requisition Start Date: 08/30/18 Stop Date: 09/13/18 Status: Ordered Medication Dispense Status: Completed Quantity: 42.0 Unit: tablet Total Allowed Fills: 1 Fills Dispensed: 0 Vitamin D3 oral tablet 1 tablet = 400 International_Units, By Mouth, Daily, # 30 tablet, 0 Refills, Maintenance, 08/01/18 8:57:25 AM EDT, Tablet Start Date: 08/01/18 Status: Ordered Medication Dispense Status: Completed Quantity: 30.0 Unit: tablet Total Allowed Fills: 1 Fills Dispensed: 0 Problem List Condition Confirmation Course Effective Dates Status H ealth Status Informant Afib Confirmed Active Biventricular cardiac pacemaker in situ Confirmed Active Cardiomyopathy Confirmed Active Hypertension Confirmed Active Obese class I Confirmed Active Social History Social History Type Response Smoking Status Never (less than 100 in lifetime) entered on: 06/08/23 Sex Sex Representation Male (finding) Patient Care team information Care Team Personnel Name: Carl Dawn MD Position: Reference Physician Member Role: PCP Address: [address] [place] [address] Telecom: Care Team Related Persons Name: LALO PALAFOX Insurance Providers Guarantor name: KASSANDRA [facility] [employer] Plan Information #: 1 Payer: [employer] PPO Payer Identifier: FRANKLYN Member Number: [id number] Group Number: [id number] Subscriber Identifier: FRANKLYN Relationship to Subscriber: self Coverage Type: Medicare PPO Coverage Verification Date: FRANKLYN Telecom: FRANKLYN Address:
[2025-06-05 08:35] VITALS: BP 104/60; PULSE 78; O2SAT 97; BMI 30.1
--- NOTE | 2025-06-05 08:35 | MHC.OFFVIS ---
Vital Signs 06/05/25 08:35 Height 5 ft 7 in Weight 192 lb BMI 30.1 BP 104/60 Blood Pressure Location Rt brachial Position Sitting Pulse 78 Pulse Source Pulse Oximeter Pulse Oximetry (%) 97 Oxygen Delivery Method Room Air Intake Visit Reasons: Asthma-COPD Allergies Penicillins Adverse Reaction (Severe, Verified 06/05/24 08:55) Rash HPI Comments Details: The patient is a 79-year-old gentleman with a history fibrillation and status post pacemaker who presents with worsening dyspnea on exertion. The dyspnea is moderate severity with minimal activity. These are progressively getting worse. He was evaluated by his pegger dobby looms without any significant findings. He is now scheduled for level 3 CPAP at at [facility]. In the meantime he has not had any pulmonary evaluation as of yet. The patient states that he has not had any significant exposures. He has a hobby of bones eyes. Although at denies any fumes or toxins. 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 The patient has not using inhaler. Denies any wheezing. During the office visit we did go for brief walking oximetry. The patient did develop significant dyspnea with dyspnea score 7/10 while at ambulating quickly the heart rate did go up to about 130 beats per minute. It appeared to be sinus. The patient felt better at rest. On examination he also had a prolonged expiratory phase and potentially now a obstruction. Not clear feels upper airway wheezing or small airways disease. Still I do believe that he will benefit from starting a bronchodilator. We have to be careful with his cardiac history and his tachycardia. Will go ahead and place him on a long-acting muscarinic antagonist while we wait for his pulmonary function studies. The patient also has some small knee of the nails beds. Therefore we did talk about the importance of iron and checking his CBC make sure that he is not anemic or iron deficiency that can also cause shortness of breath. 07/14/2023 the patient is here for a pulmonary follow-up visit. The patient did start taking the Spiriva. He has not see any significant changes in his breathing however. He does have a CPAP scheduled but is not level 3 is actually level 1. he should be having that in the next few weeks. In the meantime we did review his pulmonary function studies. Appears that he has obstructive process with some reversibility. 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 I do believe the patient should stay on the Spiriva for this reason. We can also maximize his respiratory therapy but depending on the CPAP we can discuss that later on. I also did review his x-ray from [facility] which demonstrated no acute disease. However, he did have a CT scan of the coronary arteries back in 2019 which demonstrated a pulmonary nodule approximately 4 mm in size. Therefore, the patient should have a repeat CT scan to follow-up with his pulmonary nodule. The patient also has been using CPAP. The CPAP therapy has been affecting beneficial. Currently in APAP his AHI is below 1 which is reassuring. He does have cough can chest congestion in the morning. Likely from sinus congestion. Will go ahead and provide him with the Neti bottle and also I steroid nasal spray that he can use in the morning in order to try to alleviate some of the nasal congestion that is resulting in the significant productive cough in the morning. We also reviewed his blood work from [facility]. Appears that he has some degree of polycythemia of unclear significance. Will go ahead and request a an overnight oximetry to assess his oxygen requirements at nighttime while using CPAP to make sure that he does not have any significant nocturnal hypoxia. 11/04/2023 the patient is here for a pulmonary follow-up visit. The patient is doing well from a respiratory status. Denies any wheezing or any cough. Does take his inhalers but not on a regular basis. The patient did undergo a CT scan of the chest which we personally reviewed. It appears that he has a left lower lobe pulmonary nodule measuring between 8-9 mm in size. It appears that back in 2019 this nodule was only measuring 4-5 mm in size. Based on the increasing size the patient will benefit from a PET scan. Because of the location of this nodule be difficult to biopsy. Therefore if the PET scan is positive then it will be more of incentive to either resected or biopsy. If the PET scan is not significantly avid then we can continue to monitor it. We can also discuss him at tumor conference. The patient continues with CPAP therapy that has been affecting beneficial. He was supposed to have an overnight oximetry on the CPAP and I do not see the results available as of yet. Seems like it is doing better anyways will hold off at this time. 06/05/2024 the patient is here for a pulmonary follow-up visit. Overall the patient has been doing well. He did undergo the PET scan. Pulmonary nodule did not show significant FDG activity. Although he did have FDG activity in the colon. Did go undergo a colonoscopy. He will need to have a repeat colonoscopy in 5-10 years. From a respiratory status the patient has been doing okay. He does have a prescription for Spiriva. He has not required rescue inhaler which is reassuring. He has been using the CPAP. CPAP therapy has been affecting beneficial. He does use it for more than 4 hours a night. At this point will plan to repeat the CT scan of the chest in the fall 2023. 06/05/2025 the patient is here for a pulmonary follow-up visit. Overall he is doing okay from a pulmonary standpoint. Unfortunately had a bad fall landing on his right shoulder resulting in a complete tear of his rotator coughs. Therefore he is going to need surgery. In the meantime the patient denies any difficulty breathing. He does have his inhalers and they have been affecting beneficial. We did look at his last CT scan back in August 2024 demonstrating a pulmonary nodules the largest 1 measuring 9 mm in size. He is due for another CAT scan though now with the surgery coming up will hold off on the the CAT scan until 6 months from now which she should have been already recovered recovering from his surgery. From a pulmonary standpoint the patient is doing good and may be able to proceed with anesthesia and surgery at this time. He has been using the CPAP. The CPAP therapy has been affecting beneficial. He does get supplies regularly. He will bring his CPAP to his surgery. [facility] Medical History (Updated 06/05/25 @ 08:53 by Sam King MD) Polycythemia Chronic rhinitis Pulmonary nodule Asthma-COPD overlap syndrome MEKHI on CPAP Dyspnea Social History (Updated 06/20/23 @ 08:52 by CIARA Mccain) Patient Tobacco Use Status: Never used Tobacco Review of Systems Const Denies fatigue and Denies fever(s) Eyes Reports no additional complaints and Denies change in vision Card Denies chest pain and Denies dyspnea on exertion Resp Reports cough, Denies dyspnea on exertion and Denies wheezing GI Reports no additional complaints Musc Reports as per HPI, Reports myalgias and Reports limited range of motion Skin/Breast Denies rash Neuro Reports no additional complaints Endo Denies fatigue Olaf/Lymph Denies lymphadenopathy Aller/Immun Denies wheezing Physical Exam Vital Signs: Last Vital Signs Pulse 78 06/05/25 08:35 BP 104/60 06/05/25 08:35 Pulse Ox 97 06/05/25 08:35 Oxygen Delivery Method Room Air 06/05/25 08:35 BMI result Body Mass Index 30.1 Const General: comfortable HEENT Head: Yes normocephalic Neck Neck: Yes supple Chest Chest palpation & inspection: normal inspection of the chest Resp Effort & Inspection: normal respiratory effort Auscultation: clear to auscultation bilaterally Cardio Rate: tachycardic Rhythm: regular rhythm Heart sounds: S1 normal heart sound present and S2 normal heart sound present GI Palpation (GI): Soft to palpation Skin General skin exam: no rashes or lesions noted Extrem General: Yes no clubbing, cyanosis or edema Assessment & Plan Assessment & Plan (1) Dyspnea: Comment: Multifactorial: + obstructive process,? underlying cardiac disease, +body habitus, +deconditioning. Code(s): R06.00 - Dyspnea, unspecified Category: Medical Qualifiers: Dyspnea type: dyspnea on exertion Qualified Code(s): R06.09 - Other forms of dyspnea (2) MEKHI on CPAP: Code(s): G47.33 - Obstructive sleep apnea (adult) (pediatric) Category: Medical (3) Asthma-COPD overlap syndrome: Code(s): J44.89 - Other specified chronic obstructive pulmonary disease Category: Medical (4) Pulmonary nodule: Comment: noted on CT coronary angiogram Code(s): R91.1 - Solitary pulmonary nodule Category: Medical (5) Chronic rhinitis: Code(s): J31.0 - Chronic rhinitis Category: Medical (6) Polycythemia: Code(s): D75.1 - Secondary polycythemia Category: Medical (7) Pre-op chest exam: Code(s): Z01.811 - Encounter for preprocedural respiratory examination Category: Medical Plan ok to proceed with anesthesia and orthopedic surgery for his shoulder injury continue Spiriva daily continue CPAP therapy CT chest in 6 months to allow revovery Fluticasone nasal spray F/U 8 months Orders: Orders CT chest wo IV con 6 Months R91.1 - Solitary pulmonary nodule Coding Level of Care Code Est Pt Level 4 (88169) Complex EM visit Add On G2211 Diagnoses Dyspnea on exertion R06.09 Dyspnea type: dyspnea on exertion MEKHI on CPAP G47.33 Asthma-COPD overlap syndrome J44.89 Pulmonary nodule R91.1 Chronic rhinitis J31.0 Polycythemia D75.1 Pre-op chest exam Z01.811 Time Spent (min) 17
--- OUTSIDE RECORDS SUMMARY | 2025-06-05 08:46 | XMS_ITS | Encounter Summary ---
Author Organization [facility] Address [address] [place] [phone] Phone Care Team Providers Care Sponge Hooker Name Role Phone Carl Dawn MD Primary Care Provider Self-Referred, Patient Unavailable Unavailab le Encounter Details Date Type Department Care Team (Late st Contact Info) Description 10/23/2022 Procedure Pass [facility] Cardio EP Device Monitoring [address] [place], [place] [id number] Social History Tobacco Use Types Packs/Day Years Used Date Smoking Tobacco: Never Smokeless Tobacco: Never Sex and Gender Information Value Date Recorded Sex Assigned at Male 02/04/2022 8:08 AM EDT Legal Sex Male 7:57 AM EDT Gender Identity Male 02/04/2022 8:08 AM EDT Sexual Orientation Straight 02/04/2022 8: 08 AM EDT documented as of this encounter Plan of Treatment Upcoming Encounters Date Type Department Care Team (Latest Contact Info) Description 10/23/2022 Procedure Pass [facility] Cardio EP Device Monitoring [address] [place] [address] 11/03/2022 Procedure Pass [facility] Cardio EP Device Monitoring [address] [place] [address] 01/18/2023 Procedure Pass [facility] Cardio EP Device Monitoring [address] [place] [address] 04/22/2023 Procedure Pass [facility] Cardio EP Device Monitoring [address], [place] [id number] 05/09/2023 Procedure Pass [facility] Cardio EP Device Monitoring [address] [place] [address] 07/13/2023 Procedure Pass [facility] Cardio EP Device Monitoring [address] [place] [address] 09/21/2023 Procedure Pass [facility] Cardio EP Device Monitoring [address] [place] [address] 12/07/2023 Procedure Pass [facility] Cardio EP Device Monitoring [address] [place] [address] 02/14/2024 Procedure Pass [facility] Cardio EP Device Monitoring [address] [place] [address] 06/20/2024 Procedure Pass [facility] Cardio EP Device Monitoring [address] [place] [address] 01/11/2025 Procedure Pass [facility] Cardio EP Device Monitoring [address] [place] [address] 04/12/2025 Procedure Pass [facility] Cardio EP Device Monitoring [address] [place] [address] 04/12/2025 Procedure Pass [facility] Cardio EP Device Monitoring [address] [place] [address] 06/14/2025 Procedure Pass [facility] PERIOPERATIVE DEPT [address] [place] [phone] 06/14/2025 7:45 AM EDT Hospital Encounter [facility] PERIOPERATIVE DEPT [address] [place] [phone] Kobe Delgado MD [address] [place] [phone] [email or web address] 06/14/2025 7:45 AM EDT Anesthesia Event [facility] PERIOPERATIVE DEPT [address] [place] [phone] Mike Oscar MD [address] [facility] [address] [place] [phone] [email or web address] Steiner, LUCIA [address] [place] [phone] [email or web address] 06/14/2025 7:45 AM EDT - 06/14/2025 10:53 AM EDT Surgery [facility] PERIOPERATIVE DEPT [address] [place] [phone] Kobe Delgado MD [address] [phone] [email or web address] ARTHROSCOPIC REPAIR ROTATOR CUFF SHOULDER 06/26/2025 10:40 AM EDT Office Visit [facility] Department of Orthopaedic Surgery, Sports Medicine Service [address] [facility], [address] [place] [address] Kobe Delgado MD [address] [phone] [email or web address] 07/26/2025 9:00 AM EDT Appointment [facility] Cardio EP Device Monitoring [address] [place] [address] Jenifer Castañeda MD, MS [address] [address] [email or web address] 10/16/2025 11:00 AM EST Appointment [facility] Cardio EP Device Monitoring [address] [place] [address] Jenifer Castañeda MD, MS [address] [address] [email or web address] 10/16/2025 11:30 AM EST Office Visit [facility] [address] [place] [address] Jenifer Castañeda MD, MS [address] [phone] [email or web address] Scheduled Procedures Name Priority Associated Diagnoses Date/Ti me ARTHROSCOPIC REPAIR ROTATOR CUFF SHOULDER Traumatic complete tear of right rotator cuff, subsequent encounter Axillary nerve palsy 06/14/2025 7:45 AM EDT documented as of this encounter Visit Diagnoses Not on filedocumented in this encounter Additional Health Concerns Assessment Noted Time PHQ-2 Depression Total Score: 0 05/12/20 22 11:03 AM EDT documented as of this encounter Care Teams Sponge Hooker Relationship Specialty Start Date End Date Carl Dawn MD [address] [place] [address] PCP - General Internal Medicine 02/04/22 Self-Referred, Patient 01/18/23 documented as of this encounter Additional Source Comments The information contained in this document represents components of the legal health record. It is not the complete legal health record.[facility]
--- OUTSIDE RECORDS SUMMARY | 2025-06-05 08:47 | XMS_ITS | Encounter Summary ---
Author Organization [facility] Address [address] [place] [phone] Phone Care Team Providers Care Livestock Sales Representative Name Role Phone Carl Dawn MD Primary Care Provider Self-Referred, Patient Unavailable Unavailab le Encounter Details Date Type Department Care Team (Late st Contact Info) Description 04/22/2023 Procedure Pass [facility] Cardio EP Device Monitoring [address] [place] [address] Social History Tobacco Use Types Packs/Day Years Used Date Smoking Tobacco: Never Smokeless Tobacco: Never Education Answer Date Recorded Are you interested [...] (Latest Contact Info) Description 10/23/2022 Procedure Pass [facility] Cardio EP Device Monitoring [address] [place] [address] 11/03/2022 Procedure Pass [facility] Cardio EP Device Monitoring [address] [place] [address] 01/18/2023 Procedure Pass [facility] Cardio EP Device Monitoring [address] [place] [address] 04/22/2023 Procedure Pass [facility] Cardio EP Device Monitoring [address] [place] [address] 05/09/2023 Procedure Pass [facility] Cardio EP Device Monitoring [address] [place] [address] 07/13/2023 Procedure Pass [facility] Cardio EP Device Monitoring [address] [place] [address] 09/21/2023 Procedure Pass [facility] Cardio EP Device Monitoring [address] [place] [address] 12/07/2023 Procedure Pass [facility] Cardio EP Device Monitoring [address] [place] [address] 02/14/2024 Procedure Pass [facility] Cardio EP Device Monitoring [address] [place] [address] 06/20/2024 Procedure Pass [facility] Cardio EP Device Monitoring [address] [place] [address] 01/11/2025 Procedure Pass [facility] Cardio EP Device Monitoring [address] [place] [address] 04/12/2025 Procedure Pass [facility] Cardio EP Device Monitoring [address] [place] [address] 04/12/2025 Procedure Pass [facility] Cardio EP Device Monitoring [address] [place] [address] 06/14/2025 Procedure Pass [facility] [address] [place] [phone] 06/14/2025 7:45 AM EDT Hospital Encounter [facility] [address] [place] [address] Kobe Delgado MD [address] [place] [phone] [email or web address] 06/14/2025 7:45 AM EDT Anesthesia Event [facility] [address] [place] [phone] Mike Oscar MD [address] [place] [address] [address] [place] [address] [email or web address] [email or web address] Steiner, LUCIA [address] [place] [phone] [email or web address] 06/14/2025 7:45 AM EDT - 06/14/2025 10:53 AM EDT Surgery [facility] [address] [place] [phone] Kobe Delgado MD [address] [phone] [email or web address] REPAIR ROTATOR CUFF SHOULDER 06/26/2025 10:40 AM EDT Office Visit [facility] Department of Orthopaedic Surgery, Sports Medicine Service [address] [facility], [address] [place] [address] Kobe Delgado MD [address] [place] [phone] [email or web address] 07/26/2025 9:00 AM EDT Appointment [facility] Cardio EP Device Monitoring [address] [place] [address] Jenifer Castañeda MD, [place] [address] [address] [email or web address] 10/16/2025 11:00 AM EST Appointment [facility] Cardio EP Device Monitoring [address] [place] [address] Jenifer Castañeda MD, [place] [address] [address] [email or web address] 10/16/2025 11:30 AM EST Office Visit [facility] [address] [place] [address] Jenifer Castañeda MD, [place] [address] [place] [address] [email or web address] Scheduled Procedures Name Priority Associated Diagnoses [...] documented as of this encounter Care Teams Livestock Sales Representative Relationship Specialty Start Date End Date Carl Dawn MD [address] [place] [phone] PCP - General Internal Medicine 02/04/22 Self-Referred, Patient 01/18/23 documented as of this encounter Additional Source Comments The information contained in this document represents components of the legal health record. It is not the complete legal health record.[facility]
--- OUTSIDE RECORDS SUMMARY | 2025-06-05 08:47 | XMS_ITS | Clinical Summary ---
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 2 Active losartan (COZAAR) 50 MG tablet Take 100 mg by mouth daily. 2 Active rosuvastatin (CRESTOR) 20 MG tablet Take 20 mg by mouth daily. 2 Active MYRBETRIQ 50 mg Tb24 Take 50 mg by mouth daily. 2 Active clonazePAM (KLONOPIN) 0.5 MG tablet Take 0.5 mg by mouth daily as needed. 2 Active amLODIPine (NORVASC) 5 MG tablet Take 5 mg by mouth 3 (three) times a week. 3 Active chlorthalidone (HYGROTON) 25 MG tablet Take 25 mg by mouth daily. 3 Active metFORMIN (GLUCOPHAGE-XR ) 500 MG 24 hr tablet Take 500 mg by mouth every morning. 3 Active fluorouraciL (EFUDEX) 5 % cream PLEASE SEE ATTACHED FOR DETAILED DIRECTIONS 2 05/14/20 Discontinu ed(No longer taking) hydroCHLOROthi azide (HYDRODIURIL) 25 MG tablet Take 25 mg by mouth daily. 05/14/20 Discontinu ed(No longer taking) doxycycline hyclate (VIBRAMYCIN) 100 MG capsule 3 05/14/20 Discontinu ed(No longer taking) tiotropium bromide (SPIRIVA RESPIMAT) 2.5 mcg/actuation mist for inhalation Inhale 2 puffs into the lungs daily. 05/14/20 Discontinu ed(No longer taking) Active Problems Problem Noted Date Diagnosed Date Type 2 diabetes mellitus without complication Cardiomyopathy 09/08/2022 Biventricular cardiac pacemaker in situ 09/08/20 22 Atrial flutter 07/10/2021 Hyperlipidemia 06/27/2020 Overview (05/31/2025): Last Assessment & Plan: Am going to repeat a lipid profile. As I know he did have some calcific plaque in his coronary arteries I want to see what his LDL is. The goal is to keep this below 70. Hypertension 06/27/2020 Overview (05/31/2025): Last Assessment & Plan: Good review of the blood pressures the patient has at home and is to the 120s to 130s over 70s. 1 day was higher in the 160s over 90 however this was only for several hours. Atrioventricular block 04/16/2019 Paroxysmal atrial fibrillation 04/14/2019 Obstructive sleep apnea syndrome 03/12/2015 Mitral valve insufficiency 03/11/2014 Tricuspid valve regurgitation 03/11/2014 Encounters Date Type Department Care Team Description 05/31/2025 1:00 PM EDT Pre-Admission Testing [facility] Pre-Procedure Evaluation Department Please See Appointment Details MARIA D Cuello [phone] Unknown, MD Nelson 05/14/2025 9:00 AM EDT Office Visit [facility] [address] [place] [address] Sarah Fox MD Weakness of right shoulder (Primary Dx); 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 2:00 PM EDT Office Visit [facility] Department of Orthopaedic Surgery, Sports Medicine Service [address], [address] [place] [address] Kobe Delgado MD Axillary nerve palsy (Primary Dx); Traumatic complete tear of right rotator cuff, initial encounter 04/26/2025 10:00 AM EDT - 04/26/2025 11:59 PM EDT Hospital Encounter [facility] Cardio EP Device Monitoring [address] [place] [address] Jenifer Castañeda MD, MS Discharge Disposition: Home or Self Care 04/24/2025 3:40 PM EDT Office Visit [facility] Department of Orthopaedic Surgery, Sports Medicine Service [address], [address] [place] [address] Mario Morrissey MD Axillary nerve palsy (Primary Dx); Acute pain of right shoulder; Traumatic complete tear of right rotator cuff, initial encounter 04/24/2025 3:07 PM EDT - 04/24/2025 11:59 PM EDT Hospital Encounter [facility] [address] [place] [address] Mario Morrissey MD Discharge Disposition: Home or Self Care 04/24/2025 Orders Only [facility] Department of Orthopaedic Surgery, Sports Medicine Service [address], [address] [place] [phone] Demarco Gomez [place] Pain (Primary Dx) 04/24/2025 Ancillary Orders [facility] [address] [place] [address] Mario Morrissey MD 04/10/2025 - 04/10/2025 11:59 PM EDT Hospital Encounter [facility] [address] [place] [address] Mario Morrissey MD Discharge Disposition: Home or Self Care 03/27/2025 Telephone [facility] Cardio EP Device Monitoring [address] [place] [address] Renee Pardo 03/27/2025 Telephone [facility] [address] [place] [address] Jenifer Castañeda MD, MS Garry.pt advice 01/11/2025 Procedure Pass [facility] Cardio EP Device Monitoring [address] [place] [address] from Last 3 Months Social History Tobacco Use Types Packs/Day Years [...] Orientation Straight 02/04/2022 8: 08 AM EDT Last Filed Vital Signs Vital Sign Reading Time Taken Comments Blood Pressure 122/62 10/26/2024 10:18 AM EST Pulse 83 10/26/2024 10:18 AM EST Temperature 36.7 C (98 F) 06/28/2022 11:51 AM EDT Respiratory Rate 17 06/28/2022 1:30 PM EDT Oxygen Saturation 97% 10/26/2024 10:18 AM EST Inhaled Oxygen Concentration - - Weight 85.3 kg (188 lb) 05/31/2025 12:52 PM EDT Height 170.2 cm (5' 7.01 ) 05/31/2025 12:52 PM E DT Body Mass Index 29.44 05/31/2025 12:52 PM EDT Plan of Treatment Upcoming Encounters Date Type Department Care Team (Latest Contact Info) Description 10/23/2022 Procedure Pass [facility] Cardio EP Device Monitoring [address] [place] [address] 11/03/2022 Procedure Pass [facility] Cardio EP Device Monitoring [address] [place] [address] 01/18/2023 Procedure Pass [facility] Cardio EP Device Monitoring [address] [place] [address] 04/22/2023 Procedure Pass [facility] Cardio EP Device Monitoring [address] [place] [address] 05/09/2023 Procedure Pass [facility] Cardio EP Device Monitoring [address] [place] [address] 07/13/2023 Procedure Pass [facility] Cardio EP Device Monitoring [address] [place] [address] 09/21/2023 Procedure Pass [facility] Cardio EP Device Monitoring [address] [place] [address] 12/07/2023 Procedure Pass [facility] Cardio EP Device Monitoring [address] [place] [address] 02/14/2024 Procedure Pass [facility] Cardio EP Device Monitoring [address] [place] [address] 06/20/2024 Procedure Pass [facility] Cardio EP Device Monitoring [address] [place] [address] 01/11/2025 Procedure Pass [facility] Cardio EP Device Monitoring [address] [place] [address] 04/12/2025 Procedure Pass [facility] Cardio EP Device Monitoring [address] [place] [address] 04/12/2025 Procedure Pass [facility] Cardio EP Device Monitoring [address] [place] [address] 06/14/2025 Procedure Pass [facility] [address] [place] [phone] 06/14/2025 7:45 AM EDT Hospital Encounter [facility] [address] [place] [address] Kobe Delgado MD [address] [place] [phone] [email or web address] 06/14/2025 7:45 AM EDT Anesthesia Event [facility] [address] [place] [address] Mike Oscar MD [address] [facility] [address] [place] [address] [email or web address] [email or web address] Steiner, LUCIA [address] [place] [address] [email or web address] 06/14/2025 7:45 AM EDT - 06/14/2025 10:53 AM EDT Surgery [facility] [address] [place] [phone] Kobe Delgado MD [address] [place] [address] [email or web address] ARTHROSCOPIC REPAIR ROTATOR CUFF SHOULDER 06/26/2025 10:40 AM EDT Office Visit [facility] Department of Orthopaedic Surgery, Sports Medicine Service [address], [address] [place] [address] Kobe Delgado MD [address] [place] [address] [email or web address] 07/26/2025 9:00 AM EDT Appointment [facility] Cardio EP Device Monitoring [address] [place] [address] Jenifer Castañeda MD, MS [address] [address] [email or web address] 10/16/2025 11:00 AM EST Appointment [facility] Cardio EP Device Monitoring [address] [place] [address] Jenifer Castañeda MD, MS [address] [address] [email or web address] 10/16/2025 11:30 AM EST Office Visit [facility] [address] [place] [address] Jenifer Castañeda MD, MS [address] [address] [email or web address] Scheduled Procedures Name Priority Associated Diagnoses Date/Ti me ARTHROSCOPIC REPAIR ROTATOR CUFF SHOULDER Traumatic complete tear of right rotator cuff, subsequent encounter Axillary nerve palsy 06/14/2025 7:45 AM EDT Health Maintenance Due Date Last Done Comments HEMOGLOBIN A1C 1945 HEPATITIS C SCREENING 1965 DEPRESSION SCREENING 05/12/2023 05/12/2022 CREATININE LEVEL 06/28/2023 06/28/2022 POTASSIUM LEVEL 06/28/2023 06/28/2022 Adult Td,Tdap Booster 12/26/2024 12/26/2014 BLOOD PRESSURE 04/25/2025 10/26/2024 INFLUENZA VACCINE (#1) 2025 , 06/20/2023, 07/07/2022, Additional history exists DIABETIC EYE EXAM 05/31/2025 COVID-19 VACCINE ( season) 2025 06/23/2024, 07/28/2023, 07/22/2022, Additional history exists ZOSTER VACCINES Completed 07/01/2019, 01/2019, 02/27/2019, Additional history exists PNEUMOCOCCAL VACCINES (50+ years) Completed 06/20/2023, 01/29/2016, 12/26/2014 RSV VACCINE Completed 10/04/2024 SMOKING STATUS SCREENING (Once After 26 Yrs) Completed 05/31/2025 HEPATITIS A VACCINES Aged Out No long er eligible based on patient's age to complete this topic HIB VACCINES Aged Out No longer eligi ble based on patient's age to complete this topic MENINGOCOCCAL VACCINES (ACWY) Aged Out No longer eligible based on patient's age to complete this topic MENINGOCOCCAL VACCINES (B) Aged Out N o longer eligible based on patient's age to complete this topic Medical Devices Implanted Type Area Small Products Assembler Device Identifier Shelf Expiration Date Model / Serial / Lot Lead Pacing Attain 88cm Ability Lv Polyurethane Steroid Eluting Lt Ventricle Distal Double Curve Is 1 Bi - [id number] Implanted:Qty: 1 on 06/28/2022 by Jenifer Castañeda MD, MS at [facility] Lead Coronary Sinus [employer] [id number] 05/03/2024 [id number] / [id number] / Photofinishing Laboratory Worker-Pacemaker Angle Mri Is4 Quad - [id number] Implanted:Qty: 1 on 06/28/2022 by Jenifer Castañeda MD, MS at [facility] [place] [employer] Pacemaker Left: Chest Wall [employer] [id number] 11/30/2023 [id number] / [id number] / Procedures Procedure Name Priority Date/Time Associated Diagnosis Comments DEVICE CHECK: PPM IN-HOME INTERROGATION Routine 04/26/2025 7:17 AM EDT Longstanding persistent atrial fibrillation XR SHOULDER 2 VIEWS (RIGHT) Routine 04/24/2025 3:14 PM EDT Pain MRI UPPER EXTREMITY OUTSIDE (NO INTERPRETATION) Routine 04/10/2025 12:00 AM EDT BASIC METABOLIC PANEL STAT 06/28/2022 6:50 AM EDT from Last 3 Months or Most Recently Relevant to Health Maintenance Results * DEVICE CHECK: PPM IN-HOME INTERROGATION (04/26/2025 7:17 AM EDT) Date Time Interrogation Session [id number] [facility] Implantable Pulse Generator Small Products Assembler [employer] [facility] Implantable Pulse Generator Model [id number] Angle Quad ADVANCED PRACTICE NURSE-P [facility] Implantable Pulse Generator Serial Number [id number] [facility] Type Interrogation Session Remote Scheduled [facility] Clinic Name Cardiac Device Clinic [facility] Implantable Pulse Generator Type Cardiac Resynchronization Therapy - Pacemaker [facility] Generator Implant Date [id number] [facility] Nicolás Setting Mode (NBG Code) VVIR [facility] Nicolás Setting Lower Rate Limit 60 {beats} /min [facility] Nicolás Setting Maximum Sensor Rate 130 {beats} /min [facility] Lead Channel Setting Sensing Polarity Bipolar [facility] Lead Channel Setting Sensing Anode Location Right Atrium [facility] Lead Channel Setting Sensing Anode Terminal Ring [facility] Lead Channel Setting Sensing Cathode Location Right Atrium [facility] Lead Channel Setting Sensing Cathode Terminal Tip [facility] Lead Channel Setting Sensing Sensitivity Off [facility] Lead Channel Setting Sensing Polarity Bipolar [facility] Lead Channel Setting Sensing Anode Location Right Ventricle [facility] Lead Channel Setting Sensing Anode Terminal Ring [facility] Lead Channel Setting Sensing Cathode Location Right Ventricle [facility] Lead Channel Setting Sensing Cathode Terminal Tip [facility] Lead Channel Setting Sensing Sensitivity 2.8 mV [facility] Ventricular chambers paced during ADVANCED PRACTICE NURSE pacing. BiV [facility] ADVANCED PRACTICE NURSE LV-RV Delay 20 ms [facility] Lead Channel Setting Pacing Polarity Bipolar [facility] Lead Channel Setting Pacing Anode Location Right Ventricle [facility] Lead Channel Setting Pacing Anode Terminal Ring [facility] Lead Channel Setting Sensing Cathode Location Right Ventricle [facility] Lead Channel Setting Sensing Cathode Terminal Tip [facility] Lead Channel Setting Pacing Pulse Width 0.4 ms [facility] Lead Channel Setting Pacing Amplitude 2 V [facility] Lead Channel Setting Pacing Capture Mode Adaptive [facility] Lead Channel Setting Pacing Polarity Unipolar [facility] Lead Channel Setting Pacing Anode Terminal Can [facility] Lead Channel Setting Sensing Cathode Location Left Ventricle [facility] Lead Channel Setting Sensing Cathode Terminal Tip [facility] Lead Channel Setting Pacing Pulse Width 0.4 ms [facility] Lead Channel Setting Pacing Amplitude 1.25 V [facility] Lead Channel Setting Pacing Capture Mode Adaptive [facility] Zone Setting Type Category VF [facility] Zone Setting Vendor Type Category V High Rate [facility] Zone Setting Type Category VT [facility] Zone Setting Vendor Type Category FastVT [facility] Zone Setting Type Category VT [facility] Zone Setting Vendor Type Category VT [facility] Zone Setting Type Category VT [facility] Zone Setting Vendor Type Category MonVT [facility] Zone Setting Status Monitor [facility] Zone Setting Detection Interval 400 ms [facility] Zone Setting Type Category ATRIAL_FIBRILLATION [facility] Zone Setting Vendor Type Category FastATAF [facility] Zone Setting Type Category AT/AF [facility] Atrial Impedance 399 ohm [facility] Atrial Impedance 361 ohm [facility] RV Impedance 475 ohm [facility] RV Impedance 380 ohm [facility] R Wave 18.125 mV [facility] R Wave 18.125 mV [facility] RV Threshold 0.625 V [facility] RV Threshold PW 0.4 ms [facility] LV Impedance 589 ohm [facility] LV Impedance 646 ohm [facility] LV Impedance 703 ohm [facility] LV Impedance 532 ohm [facility] LV Impedance 1,121 ohm [facility] LV Impedance 1,121 ohm [facility] LV Impedance 969 ohm [facility] LV Impedance 798 ohm [facility] LV Impedance 1,083 ohm [facility] LV Impedance 1,102 ohm [facility] LV Threshold 0.75 V [facility] LV Threshold PW 0.4 ms [facility] Battery Date Time of Measurements [id number] [facility] Battery Status OK [facility] Battery TICKET COLLECTOR OR USHER Trigger 2.595 [facility] Battery Remaining Longevity 112 mo [facility] Battery Voltage 3.01 V [facility] Nicolás Statistic Date Time Start [id number]+0000 [facility] Nicolás Statistic Date Time End [id number]+0000 [facility] AP (%) 0 % [facility] TEST CONSULTANT (%) 98.38 % [facility] ADVANCED PRACTICE NURSE Statistic LV Percent Paced 98.35 % [facility] AP/TEST CONSULTANT % 0 % [facility] /TEST CONSULTANT % 98.38 % [facility] AP/VS % 0 % [facility] /VS % 1.62 % [facility] ADVANCED PRACTICE NURSE Statistic Date Time Start [id number]+0000 [facility] ADVANCED PRACTICE NURSE Statistic Date Time End [id number]+0000 [facility] ADVANCED PRACTICE NURSE Statistic ADVANCED PRACTICE NURSE Percent Paced 98.35 % [facility] Therapy Statistic Recent Date Time Start [id number]+0000 [facility] Therapy Statistic Recent Date Time End [id number]+0000 [facility] Therapy Statistic Total Date Time Start [id number]+0000 [facility] Therapy Statistic Total Date Time End [id number]+0000 [facility] Episode Statistic Recent Count 0 [facility] Episode Statistic Type Category AT/AF [facility] Episode Statistic Recent Count 0 [facility] Episode Statistic Type Category Patient Activated [facility] Episode Statistic Recent Count 0 [facility] Episode Statistic Type Category SVT [facility] Episode Statistic Recent Count 0 [facility] Episode Statistic Type Category VT [facility] Episode Statistic Recent Count 0 [facility] Episode Statistic Type Category VT [facility] Episode Statistic Recent Date Time Start [id number]+0000 [facility] Episode Statistic Recent Date Time End [id number]+0000 [facility] Episode Statistic Recent Date Time Start 93960133794835+0000 [facility] Episode Statistic Recent Date Time End [id number]+0000 [facility] Episode Statistic Recent Date Time Start 82352826755283+0000 [facility] Episode Statistic Recent Date Time End [id number]+0000 [facility] Episode Statistic Recent Date Time Start [id number]+0000 [facility] Episode Statistic Recent Date Time End 78609493730838+0000 [facility] Episode Statistic Recent Date Time Start 85004270899775+0000 [facility] Episode Statistic Recent Date Time End 18989657601243+0000 [facility] Episode Statistic Total Count 0 [facility] Episode Statistic Type Category AT/AF [facility] Episode Statistic Total Count 0 [facility] Episode Statistic Type Category Patient Activated [facility] Episode Statistic Total Count 0 [facility] Episode Statistic Type Category SVT [facility] Episode Statistic Total Count 5 [facility] Episode Statistic Type Category VT [facility] Episode Statistic Total Count 1 [facility] Episode Statistic Type Category VT [facility] Episode Statistic Total Date Time Start 35424549685264+0000 [facility] Episode Statistic Total Date Time End 36390902535478+0000 [facility] Episode Statistic Total Date Time Start 32176631050803+0000 [facility] Episode Statistic Total Date Time End [id number]+0000 [facility] Episode Statistic Total Date Time Start 12938184186493+0000 [facility] Episode Statistic Total Date Time End 21613873953879+0000 [facility] Episode Statistic Total Date Time Start 45286245178112+0000 [facility] Episode Statistic Total Date Time End 73900696872105+0000 [facility] Episode Statistic Total Date Time Start 86817065754389+0000 [facility] Episode Statistic Total Date Time End 87897225978835+0000 [facility] Episode Identifier 6 [facility] Episode Type Category VT [facility] Episode Date Time 13090049427532+0000 [facility] Episode Duration 3 s [facility] Episode Identifier 841 [facility] Episode Type Category VSE [facility] Episode Date Time 86698751291713+0000 [facility] Episode Duration 9 s [facility] Episode Identifier 840 [facility] Episode Type Category VSE [facility] Episode Date Time 53342585931583+0000 [facility] Episode Duration 7 s [facility] Episode Identifier 839 [facility] Episode Type Category VSE [facility] Episode Date Time 27151418154692+0000 [facility] Episode Duration 7 s [facility] Episode Identifier 838 [facility] Episode Type Category VSE [facility] Episode Date Time [id number]+0000 [facility] Episode Duration 8 s [facility] Episode Identifier 837 [facility] Episode Type Category VSE [facility] Episode Date Time 14292252753741+0000 [facility] Episode Duration 8 s [facility] Episode Identifier 836 [facility] Episode Type Category VSE [facility] Episode Date Time 72729981995117+0000 [facility] Episode Duration 7 s [facility] Episode Identifier 835 [facility] Episode Type Category VSE [facility] Episode Date Time [id number]+0000 [facility] Episode Duration 7 s PAR [facility] 04/25/2025 11:0 1 PM EDT Narrative [facility] - 05/04/2025 4:59 PM EDT A remote CIED transmission was received and reviewed on the following patient: Patient Name Chip Perez Summary Pacemaker Interrogation. All available lead measurements are stable. Events since last evaluation show (0) detections. Estimated battery longevity ~ 9.4 years. TEST CONSULTANT 98% Recheck in 3 months. us Jenifer Castañeda MD, MS CV CARDIAC SERVICES ORDERAB LES Final Result [facility] [address] [place] [address] * XR SHOULDER 2 VIEWS (RIGHT) (04/24/2025 3:14 PM EDT) Anatomical Region Laterality Modality Shoulder Right Radiographic [place] ging 04/24/2025 4:41 PM EDT Impressions 04/24/2025 4:44 PM EDT No fracture or dislocation. Glenohumeral osteoarthritis. Narrative 04/24/2025 4:44 PM EDT XR SHOULDER 2 OR MORE VIEWS (RIGHT) Referring clinician's provided indication for this examination in Epic: Pain COMPARISON: None available FINDINGS: No acute fracture or dislocation. There are chronic changes of the distal clavicle/acromion which may be postsurgical or posttraumatic. There are moderate degenerative changes at the glenohumeral joint with prominent inferior glenoid rim marginal osteophytes. Partially visualized pacemaker wires. Procedure Note Layton Collazo MD - 04/24/2025 XR SHOULDER 2 OR MORE VIEWS (RIGHT) Referring clinician's provided indication for this examination in Epic:Pain COMPARISON: None available FINDINGS: No acute fracture or dislocation. There are chronic changes of the distalclavicle/acromion which may be postsurgical or posttraumatic. There aremoderate degenerative changes at the glenohumeral joint with prominentinferior glenoid rim marginal osteophytes. Partially visualized pacemakerwires. IMPRESSION: No fracture or dislocation. Glenohumeral osteoarthritis. Mario Morrissey MD IMG XR UPPER EXTREMI TY Final Result * MRI Outside Upper Extremity (No Interpretation) (04/10/2025 12:00 AM EDT) Narrative [facility] - 04/24/2025 2:47 PM EDT This study is for PACS storage only and not for interpretation. Mario Morrissey MD IMG OUTSIDE IMAGING W/OUT INTERPRETATION Final Result Performing Organization Address City/[facility]/ZIP Co de Phone Number [facility] * (ABNORMAL) Basic metabolic panel (06/28/2022 6:50 AM EDT) SODIUM 133(L) 136 - 145 mmol/L [facility] POTASSIUM 4.6 3.4 - 5.1 mmol/L [facility] CHLORIDE 94(L) 98 - 107 mmol/L [facility] CO2 29 22 - 31 mmol/L [facility] BUN 15 6 - 23 mg/dL [facility] CREATININE 1.03 0.50 - 1.20 mg/dL [facility] GLUCOSE 123(H) 70 - 100 mg/dL [facility] CALCIUM 9.4 8.8 - 10.7 mg/dL [facility] EGFR 76 >59 mL/min/1.7 3m2 [facility] Comment:Estimated glomerular filtration rate calculated using the CKD-EPI refit equation. ANION GAP 10 7 - 17 mmol/L [facility] 06/28/2022 6:50 AM EDT 06/28/2022 7:07 AM EDT Jenifer Castañeda MD, MS LAB BLOOD ORDERABLES Final Result Performing Organization Address City/[facility]/ZIP Co de Phone Number [facility] [address] [place] [phone] from Last 3 Months or Most Recently Relevant to [place] [address] [employer] O MEDICARE REPLACEMENT A[employer] O MEDICARE REPLACEMENT [place] [address] [place] [address] [place] [address] [employer] MED[employer]ARE REPLACEMENT Advance Directives For more information, please contact: [phone] (9AM - 5PM [facility], Tuesday-Tuesday) * Full Code (Latest Code Status on File) Date Activated Date Inactivated Comments 06/28/2022 11:52 AM Question Answer Comments Code Status Confirmed With: Patient Care Teams Structural Steel Shop Supervisor Relationship Specialty Start Date End Date Carl Dawn MD [address] [place] [phone] PCP - General Internal Medicine 02/04/22 Self-Referred, Patient 01/18/23 Additional Source Comments The information contained in this document represents components of the legal health record. It is not the complete legal health record.[facility]
--- OUTSIDE RECORDS SUMMARY | 2025-06-05 08:47 | XMS_ITS | Encounter Summary ---
Author Organization [facility] Address [address] [place] [phone] Phone Care Team Providers Care Excel Developer Name Role Phone Carl Dawn MD Primary Care Provider Self-Referred, Patient Unavailable Unavailab le Encounter Details Date Type Department Care Team (Late st Contact Info) Description 07/05/2022 Procedure Pass [facility] Cardio EP Device Monitoring [address] [place], [place] [phone] Social History Tobacco Use Types Packs/Day Years [...] (Latest Contact Info) Description 10/23/2022 Procedure Pass [facility] Cardio EP Device Monitoring [address] [place] [address] 11/03/2022 Procedure Pass [facility] Cardio EP Device Monitoring [address] [place] [address] 01/18/2023 Procedure Pass [facility] Cardio EP Device Monitoring [address] [place] [address] 04/22/2023 Procedure Pass [facility] Cardio EP Device Monitoring [address] [place], [place] [phone] 05/09/2023 Procedure Pass [facility] Cardio EP Device Monitoring [address] [place] [address] 07/13/2023 Procedure Pass [facility] Cardio EP Device Monitoring [address] [place] [address] 09/21/2023 Procedure Pass [facility] Cardio EP Device Monitoring [address] [place] [address] 12/07/2023 Procedure Pass [facility] Cardio EP Device Monitoring [address] [place] [address] 02/14/2024 Procedure Pass [facility] Cardio EP Device Monitoring [address] [place] [address] 06/20/2024 Procedure Pass [facility] Cardio EP Device Monitoring [address] [place] [address] 01/11/2025 Procedure Pass [facility] Cardio EP Device Monitoring [address] [place] [address] 04/12/2025 Procedure Pass [facility] Cardio EP Device Monitoring [address] [place] [address] 04/12/2025 Procedure Pass [facility] Cardio EP Device Monitoring [address] [place] [address] 06/14/2025 Procedure Pass [facility] [address] [place] [phone] 06/14/2025 7:45 AM EDT Hospital Encounter [facility] [address] [place] [phone] Kobe Delgado MD [address] [place] [phone] [email or web address] 06/14/2025 7:45 AM EDT Anesthesia Event [facility] [address] [place] [address] [phone] Mike Oscar MD [address] [facility] [address] [place] [phone] [email or web address]. Katy Steiner, LUCIA [address] [place] [phone] [email or web address] 06/14/2025 7:45 AM EDT - 06/14/2025 10:53 AM EDT Surgery [facility] [address] [place] [address] Kobe Delgado MD [address] [phone] [email or web address] ARTHROSCOPIC REPAIR ROTATOR CUFF SHOULDER 06/26/2025 10:40 AM EDT Office Visit [facility] Department of Orthopaedic Surgery, Sports Medicine Service 52 Count Includes [facility], [address] [place] [address] Kobe Delgado MD [address] [address] [email or web address] 07/26/2025 9:00 AM EDT Appointment [facility] Cardio EP Device Monitoring [address] [place] [address] Jenifer Castañeda MD, MS [address] [address] [email or web address] 10/16/2025 11:00 AM EST Appointment [facility] Cardio EP Device Monitoring [address] [place] [address] Jenifer Castañeda MD, MS [address] [address] [email or web address] 10/16/2025 11:30 AM EST Office Visit [facility] [address] [place] [address] Jenifer Castañeda MD, MS [address] [address] [email or web address] Scheduled Procedures Name Priority Associated Diagnoses Date/Ti [...] documented as of this encounter Care Teams Excel Developer Relationship Specialty Start Date End Date Carl Dawn MD [address] [place] [address] PCP - General Internal Medicine 02/04/22 Self-Referred, Patient 01/18/23 documented as of this encounter Additional Source Comments The information contained in this document represents components of the legal health record. It is not the complete legal health record.[facility]
--- OUTSIDE RECORDS SUMMARY | 2025-06-05 08:47 | XMS_ITS | Encounter Summary ---
Author Organization [facility] Address [address] [place] [phone] Phone Care Team Providers Care Mower Sharpener Name Role Phone Carl Dawn MD Primary Care Provider Self-Referred, Patient Unavailable Unavailab le Encounter Details Date Type Department Care Team (Late st Contact Info) Description 05/09/2023 Procedure Pass [facility] Cardio EP Device Monitoring [address] [place] [address] Social History Tobacco Use Types Packs/Day Years [...] (Latest Contact Info) Description 10/23/2022 Procedure Pass [facility] Cardio EP Device Monitoring [address] [place] [address] 11/03/2022 Procedure Pass [facility] Cardio EP Device Monitoring [address] [place] [address] 01/18/2023 Procedure Pass [facility] Cardio EP Device Monitoring [address] [place] [address] 04/22/2023 Procedure Pass [facility] Cardio EP Device Monitoring [address] [place] [address] 05/09/2023 Procedure Pass [facility] Cardio EP Device Monitoring [address] [place] [address] 07/13/2023 Procedure Pass [facility] Cardio EP Device Monitoring [address] [place] [address] 09/21/2023 Procedure Pass [facility] Cardio EP Device Monitoring [address] [place] [address] 12/07/2023 Procedure Pass [facility] Cardio EP Device Monitoring [address] [place] [address] 02/14/2024 Procedure Pass [facility] Cardio EP Device Monitoring [address] [place] [address] 06/20/2024 Procedure Pass [facility] Cardio EP Device Monitoring [address] [place] [address] 01/11/2025 Procedure Pass [facility] Cardio EP Device Monitoring [address] [place] [address] 04/12/2025 Procedure Pass [facility] Cardio EP Device Monitoring [address] [place] [address] 04/12/2025 Procedure Pass [facility] Cardio EP Device Monitoring [address] [place] [address] 06/14/2025 Procedure Pass [facility] [address] [place] [phone] 06/14/2025 7:45 AM EDT Hospital Encounter [facility] [address] [place] [address] Kobe Delgado MD [address] [place] [phone] [email or web address] 06/14/2025 7:45 AM EDT Anesthesia Event [facility] [address] [place] [address] Mike Oscar MD [address] [place] [address] [address] [place] [address] [email or web address] Katy Steiner, LUCIA [address] [place] [phone] [email or web address] 06/14/2025 7:45 AM EDT - 06/14/2025 10:53 AM EDT Surgery [facility] [address] [place] [phone] Kobe Delgado MD [address] [address] [email or web address] ARTHROSCOPIC REPAIR ROTATOR CUFF SHOULDER 06/26/2025 10:40 AM EDT Office Visit [facility] Department of Orthopaedic Surgery, Sports Medicine Service [address] [facility], [address] [place] [address] Kobe Delgado MD [address] [place] [phone] [email or web address] 07/26/2025 9:00 AM EDT Appointment [facility] Cardio EP Device Monitoring [address] [place] [address] Jenifer Castañeda MD, MS [address] [address] [email or web address] 10/16/2025 11:00 AM EST Appointment [facility] Cardio EP Device Monitoring [address] [place] [address] Jenifer Castañeda MD, MS [address] [address] [email or web address] 10/16/2025 11:30 AM EST Office Visit [facility] Clinic [address] [place] [address] Jenifer Castañeda MD, MS [address] [place] [address] [email or web address] Scheduled Procedures Name Priority Associated Diagnoses [...] documented as of this encounter Care Teams Mower Sharpener Relationship Specialty Start Date End Date Carl Dawn MD [address] [place] [phone] PCP - General Internal Medicine 02/04/22 Self-Referred, Patient 01/18/23 documented as of this encounter Additional Source Comments The information contained in this document represents components of the legal health record. It is not the complete legal health record.[facility]
--- OUTSIDE RECORDS SUMMARY | 2025-06-05 08:47 | XMS_ITS | Encounter Summary ---
Author Organization [facility] Address [address] [place] [phone] Phone Care Team Providers Care Animal Shelter Supervisor Name Role Phone Carl Dawn MD Primary Care Provider Self-Referred, Patient Unavailable Unavailab le Encounter Details Date Type Department Care Team (Late st Contact Info) Description 07/13/2023 Procedure Pass [facility] Cardio EP Device Monitoring [address] [place] [address] Social History Tobacco Use Types Packs/Day Years [...] (Latest Contact Info) Description 10/23/2022 Procedure Pass [facility] Cardio EP Device Monitoring [address] [place] [address] 11/03/2022 Procedure Pass [facility] Cardio EP Device Monitoring [address] [place] [address] 01/18/2023 Procedure Pass [facility] Cardio EP Device Monitoring [address] [place] [address] 04/22/2023 Procedure Pass [facility] Cardio EP Device Monitoring [address] [place] [address] 05/09/2023 Procedure Pass [facility] Cardio EP Device Monitoring [address] [place] [address] 07/13/2023 Procedure Pass [facility] Cardio EP Device Monitoring [address] [place] [address] 09/21/2023 Procedure Pass [facility] Cardio EP Device Monitoring [address] [place] [address] 12/07/2023 Procedure Pass [facility] Cardio EP Device Monitoring [address] [place] [address] 02/14/2024 Procedure Pass [facility] Cardio EP Device Monitoring [address] [place] [address] 06/20/2024 Procedure Pass [facility] Cardio EP Device Monitoring [address] [place] [address] 01/11/2025 Procedure Pass [facility] Cardio EP Device Monitoring [address] [place] [address] 04/12/2025 Procedure Pass [facility] Cardio EP Device Monitoring [address] [place] [address] 04/12/2025 Procedure Pass [facility] Cardio EP Device Monitoring [address] [place] [address] 06/14/2025 Procedure Pass [facility] [address] [place] [phone] 06/14/2025 7:45 AM EDT Hospital Encounter [facility] [address] [place] [address] Kobe Delgado MD [address] [place] [phone] [email or web address] 06/14/2025 7:45 AM EDT Anesthesia Event [facility] [address] [place] [address] Mike Oscar MD [address] [place] [address] 444 [place] [address] [email or web address] Katy Steiner, LUCIA [address] [place] [phone] [email or web address] 06/14/2025 7:45 AM EDT - 06/14/2025 10:53 AM EDT Surgery [facility] [address] [place] [phone] Kobe Delgado MD [address] [address] [email or web address] ARTHROSCOPIC REPAIR ROTATOR CUFF SHOULDER 06/26/2025 10:40 AM EDT Office Visit [facility] Department of Orthopaedic Surgery, Sports Medicine Service [address] [facility], [address] [place] [address] Kobe Delgado MD [address] [place] [phone] [email or web address] 07/26/2025 9:00 AM EDT Appointment [facility] Cardio EP Device Monitoring [address] [place] [address] Jenifer Castañeda MD, MS [address] [address] [email or web address] 10/16/2025 11:00 AM EST Appointment [facility] Cardio EP Device Monitoring [address] [place] [address] Jenifer Castañeda MD, MS [address] [address] [email or web address] 10/16/2025 11:30 AM EST Office Visit [facility] Cardiovascular Clinic [address] [place] [address] Jenifer Castañeda MD, MS [address] [place] [address] [email or web address] Scheduled Procedures Name Priority Associated Diagnoses Date/Ti [...] documented as of this encounter Care Teams Animal Shelter Supervisor Relationship Specialty Start Date End Date Carl Dawn MD [address] [place] [phone] PCP - General Internal Medicine 02/04/22 Self-Referred, Patient 01/18/23 documented as of this encounter Additional Source Comments The information contained in this document represents components of the legal health record. It is not the complete legal health record.[facility]
--- OUTSIDE RECORDS SUMMARY | 2025-06-05 08:47 | XMS_ITS | Encounter Summary ---
Author Organization [facility] Address [address] [place] [phone] Phone Care Team Providers Care Physician Gynecologist Name Role Phone Carl Dawn MD Primary Care Provider Self-Referred, Patient Unavailable Unavailab le Encounter Details Date Type Department Care Team (Late st Contact Info) Description 12/07/2023 Procedure Pass [facility] Cardio EP Device Monitoring [address] [place] [address] Social History Tobacco Use Types Packs/Day Years [...] (Latest Contact Info) Description 10/23/2022 Procedure Pass [facility] Cardio EP Device Monitoring [address] [place] [address] 11/03/2022 Procedure Pass [facility] Cardio EP Device Monitoring [address] [place] [address] 01/18/2023 Procedure Pass [facility] Cardio EP Device Monitoring [address] [place] [address] 04/22/2023 Procedure Pass [facility] Cardio EP Device Monitoring [address] [place] [address] 05/09/2023 Procedure Pass [facility] Cardio EP Device Monitoring [address] [place] [address] 07/13/2023 Procedure Pass [facility] Cardio EP Device Monitoring [address] [place] [address] 09/21/2023 Procedure Pass [facility] Cardio EP Device Monitoring [address] [place] [address] 12/07/2023 Procedure Pass [facility] Cardio EP Device Monitoring [address] [place] [address] 02/14/2024 Procedure Pass [facility] Cardio EP Device Monitoring [address] [place] [address] 06/20/2024 Procedure Pass [facility] Cardio EP Device Monitoring [address] [place] [address] 01/11/2025 Procedure Pass [facility] Cardio EP Device Monitoring [address] [place] [address] 04/12/2025 Procedure Pass [facility] Cardio EP Device Monitoring [address] [place] [address] 04/12/2025 Procedure Pass [facility] Cardio EP Device Monitoring [address] [place] [address] 06/14/2025 Procedure Pass [facility] [address] [place] [phone] 06/14/2025 7:45 AM EDT Hospital Encounter [facility] [address] [place] [address] Kobe Delgado MD [address] [place] [phone] [email or web address] [email or web address] 06/14/2025 7:45 AM EDT Anesthesia Event [facility] [address] [place] [address] Mike Oscar MD [address] [place] [address] 444 [place] [address] [email or web address]. Katy Steiner, LUCIA [address] [place] [phone] [email or web address] 06/14/2025 7:45 AM EDT - 06/14/2025 10:53 AM EDT Surgery [facility] [address] [place] [phone] Kobe Delgado MD [address] [address] [email or web address] ARTHROSCOPIC REPAIR ROTATOR CUFF SHOULDER 06/26/2025 10:40 AM EDT Office Visit [facility] Department of Orthopaedic Surgery, Sports Medicine Service [address] [facility], [address] [place] [address] Kobe Delgado MD [address] [place] [phone] [email or web address] 07/26/2025 9:00 AM EDT Appointment [facility] Cardio EP Device Monitoring [address] [place] [address] Jenifer Castañeda MD, MS [address] [address] [email or web address] 10/16/2025 11:00 AM EST Appointment [facility] Cardio EP Device Monitoring [address] [place] [address] Jenifer Castañeda MD, MS [address] [address] [email or web address] 10/16/2025 11:30 AM EST Office Visit [facility] Cardiovascular Clinic [address] [place] [address] Jenifer Castañeda MD, MS [address] [place] [address] [email or web address] Scheduled Procedures Name Priority Associated [...] documented as of this encounter Care Teams Physician Gynecologist Relationship Specialty Start Date End Date Carl Dawn MD [address] [place] [phone] PCP - General Internal Medicine 02/04/22 Self-Referred, Patient 01/18/23 documented as of this encounter Additional Source Comments The information contained in this document represents components of the legal health record. It is not the complete legal health record.[facility]
--- OUTSIDE RECORDS SUMMARY | 2025-06-05 08:47 | XMS_ITS | Encounter Summary ---
Author Organization [facility] Address [address] [place] [phone] Phone Care Team Providers Care Agency Trainer Name Role Phone Carl Dawn MD Primary Care Provider Self-Referred, Patient Unavailable Unavailab le Encounter Details Date Type Department Care Team (Late st Contact Info) Description 11/03/2022 Procedure Pass [facility] Cardio EP Device Monitoring [address] [place], [place] [phone] Social History Tobacco Use Types Packs/Day Years [...] (Latest Contact Info) Description 10/23/2022 Procedure Pass [facility] Cardio EP Device Monitoring [address] [place] [address] 11/03/2022 Procedure Pass [facility] Cardio EP Device Monitoring [address] [place] [address] 01/18/2023 Procedure Pass [facility] Cardio EP Device Monitoring [address] [place] [address] 04/22/2023 Procedure Pass [facility] Cardio EP Device Monitoring [address] [place], [place] [id number] 05/09/2023 Procedure Pass [facility] Cardio EP Device Monitoring [address] [place] [address] 07/13/2023 Procedure Pass [facility] Cardio EP Device Monitoring [address] [place] [address] 09/21/2023 Procedure Pass [facility] Cardio EP Device Monitoring [address] [place] [address] 12/07/2023 Procedure Pass [facility] Cardio EP Device Monitoring [address] [place] [address] 02/14/2024 Procedure Pass [facility] Cardio EP Device Monitoring [address] [place] [address] 06/20/2024 Procedure Pass [facility] Cardio EP Device Monitoring [address] [place] [address] 01/11/2025 Procedure Pass [facility] Cardio EP Device Monitoring [address] [place] [address] 04/12/2025 Procedure Pass [facility] Cardio EP Device Monitoring [address] [place] [address] 04/12/2025 Procedure Pass [facility] Cardio EP Device Monitoring [address] [place] [address] 06/14/2025 Procedure Pass [facility] PERIOPERATIVE DEPT [address] [place] [phone] 06/14/2025 7:45 AM EDT Hospital Encounter [facility] PERIOPERATIVE DEPT [address] [place] [phone] Kobe Delgado MD [address] [place] [phone] [email or web address] 06/14/2025 7:45 AM EDT Anesthesia Event [facility] PERIOPERATIVE DEPT [address] [place] [phone] Mike Oscar MD 55 [facility] [address] [place] [phone] [email or web address] Katy Steiner, LUCIA [address] [place] [phone] [email or web address] 06/14/2025 7:45 AM EDT - 06/14/2025 10:53 AM EDT Surgery [facility] PERIOPERATIVE DEPT [address] [place] [address] Kobe Delgado MD [address] [address] [email or web address] ARTHROSCOPIC REPAIR ROTATOR CUFF SHOULDER 06/26/2025 10:40 AM EDT Office Visit [facility] Department of Orthopaedic Surgery, Sports Medicine Service 52 [facility], [address] [place] [address] Kobe Delgado MD [address] [address] [email or web address] 07/26/2025 9:00 AM EDT Appointment [facility] Cardio EP Device Monitoring [address] [place] [address] Jenifer Castañeda MD, MS [address] [address] [email or web address] 10/16/2025 11:00 AM EST Appointment [facility] Cardio EP Device Monitoring [address] [place] [address] Jenifer Castañeda MD, MS [address] [address] [email or web address] 10/16/2025 11:30 AM EST Office Visit [facility] Lo Cardiovascular Clinic [address] [place] [address] Jenifer Castañeda MD, MS [address] [address] [email or web address] Scheduled Procedures Name Priority Associated [...] documented as of this encounter Care Teams Agency Trainer Relationship Specialty Start Date End Date Carl Dawn MD [address] [place] [address] PCP - General Internal Medicine 02/04/22 Self-Referred, Patient 01/18/23 documented as of this encounter Additional Source Comments The information contained in this document represents components of the legal health record. It is not the complete legal health record.[facility]
--- OUTSIDE RECORDS SUMMARY | 2025-06-05 08:47 | XMS_ITS | Encounter Summary ---
Author Organization [facility] Address [address] [place] [phone] Phone Care Team Providers Care Heavy Duty Mechanic Farm Equipment Name Role Phone Carl Dawn MD Primary Care Provider Self-Referred, Patient Unavailable Unavailab le Encounter Details Date Type Department Care Team (Late st Contact Info) Description 05/18/2022 Procedure Pass [facility] Electrophysiology Lab [address] [place], [place] [phone] Social History Tobacco Use Types Packs/Day Years [...] (Latest Contact Info) Description 10/23/2022 Procedure Pass [facility] Cardio EP Device Monitoring [address] [place] [address] 11/03/2022 Procedure Pass [facility] Cardio EP Device Monitoring [address] [place] [address] 01/18/2023 Procedure Pass [facility] Cardio EP Device Monitoring [address] [place] [address] 04/22/2023 Procedure Pass [facility] Cardio EP Device Monitoring [address] [place] [address] 05/09/2023 Procedure Pass [facility] Cardio EP Device Monitoring [address] [place] [address] 07/13/2023 Procedure Pass [facility] Cardio EP Device Monitoring [address] [place] [address] 09/21/2023 Procedure Pass [facility] Cardio EP Device Monitoring [address] [place] [address] 12/07/2023 Procedure Pass [facility] Cardio EP Device Monitoring [address] [place] [address] 02/14/2024 Procedure Pass [facility] Cardio EP Device Monitoring [address] [place] [address] 06/20/2024 Procedure Pass [facility] Cardio EP Device Monitoring [address] [place] [address] 01/11/2025 Procedure Pass [facility] Cardio EP Device Monitoring [address] [place] [address] 04/12/2025 Procedure Pass [facility] Cardio EP Device Monitoring [address] [place] [address] 04/12/2025 Procedure Pass [facility] Cardio EP Device Monitoring [address] [place] [address] 06/14/2025 Procedure Pass [facility] PERIOPERATIVE DEPT [address] [place] [phone] 06/14/2025 7:45 AM EDT Hospital Encounter [facility] PERIOPERATIVE DEPT [address] [place] [phone] Kobe Delgado MD [address] [place] [phone] [email or web address] 06/14/2025 7:45 AM EDT Anesthesia Event [facility] PERIOPERATIVE DEPT [address] [place] [phone] Mike Oscar MD [address] [place] [address] [place] [phone] [email or web address]. Katy Steiner, LUCIA [address] [place] [phone] [email or web address] 06/14/2025 7:45 AM EDT - 06/14/2025 10:53 AM EDT Surgery [facility] PERIOPERATIVE DEPT [address] [place] [address] Kobe Delgado MD [address] [address] [email or web address] ARTHROSCOPIC REPAIR ROTATOR CUFF SHOULDER 06/26/2025 10:40 AM EDT Office Visit [facility] Department of Orthopaedic Surgery, Sports Medicine Service 52 [facility], [address] [place] [address] Kobe Delgado MD [address] [address] [email or web address] 07/26/2025 9:00 AM EDT Appointment [facility] Cardio EP Device Monitoring [address] [place] [address] Jenifer Castañeda MD, MS [address] [address] [email or web address] 10/16/2025 11:00 AM EST Appointment [facility] Cardio EP Device Monitoring [address] [place] [address] Jenifer Castañeda MD, MS [address] [address] [email or web address] 10/16/2025 11:30 AM EST Office Visit [facility] Lo Cardiovascular Clinic [address] [place] [address] Jenifer Castañeda MD, MS [address] [address] [email or web address] Scheduled Procedures [...] documented as of this encounter Care Teams Heavy Duty Mechanic Farm Equipment Relationship Specialty Start Date End Date Carl Dawn MD [address] [place] [address] PCP - General Internal Medicine 02/04/22 Self-Referred, Patient 01/18/23 documented as of this encounter Additional Source Comments The information contained in this document represents components of the legal health record. It is not the complete legal health record.[facility]
--- OUTSIDE RECORDS SUMMARY | 2025-06-05 08:47 | XMS_ITS ---
Author Name [facility] Organization Unknown History of Medication Use Medication Directions Dispensed Refills Start Date End Date Stat us traMADol (ULTRAM) 50 MG tablet Take 1 tablet (50 mg total) by mouth 4 times daily (every 6 hours) as needed for severe pain. 03/18/2025 active betamethasone acetate-betamethaso ne sodium phosphate (CELESTONE) injection 3 mg 10/10/2024 10/10/2024 completed betamethasone acetate-betamethaso ne sodium phosphate (CELESTONE) injection 6 mg 6 mg, Intra-articular, Once, On Tue01/18/24 at 0930, For 1 dose, NOT FOR IV OR EPIDURAL USE. 01/18/2024 01/18/2024 completed No known medications No known medications active Allergies Allergen Reaction Severity Comment Documented Date Source Statu s PENICILLINS RASH/DERMATITIS 04/27/2023 CCT a ctive Problems Problem Status Onset Date Problem Type Date of Resoluti on Source Anterior dislocation of right shoulder, subsequent encounter active EncounterDiagnosisAct CCT Encounters Encounter Type Encounter Reason Primary Diagnosis Location Date Ambulatory Anterior dislocation of right humerus, initial encounter Anterior dislocation of right humerus, initial encounter Purpose Global 04/15/2025 Ambulatory Encounter for adjustment and management of other part of cardiac pacemaker Encounter for adjustment and management of other part of cardiac pacemaker Purpose Global 04/10/2025 Ambulatory Anterior dislocation of right humerus, initial encounter Anterior dislocation of right humerus, initial encounter Purpose Global 04/10/2025 Ambulatory Presence of cardiac pacemaker Presence of cardiac pacemaker Purpose Global 04/03/2025 Ambulatory [facility] 02/20/2025 Ambulatory Pain in right shoulder Pain in right shoulder [facility] 02/20/2025 Ambulatory Primary osteoarthritis, unspecified hand Primary osteoarthritis, unspecified hand [facility] 02/06/2025 Ambulatory Primary osteoarthritis, unspecified hand Primary osteoarthritis, unspecified hand [facility] 10/10/2024 Ambulatory Primary osteoarthritis, right hand Primary osteoarthritis, right hand [facility] 09/05/2024 Ambulatory Follow-up Follow-up [employer] [facility] 07/11/2024 Ambulatory Primary osteoarthritis, right hand Primary osteoarthritis, right hand [facility] 05/16/2024 Ambulatory Primary osteoarthritis, right hand Primary osteoarthritis, right hand [facility] 02/29/2024 Ambulatory Primary osteoarthritis, right hand Primary osteoarthritis, right hand [facility] 01/18/2024 Ambulatory Primary osteoarthritis, right hand Primary osteoarthritis, right hand [facility] Global 09/14/2023 Ambulatory Pain in right finger(s) Pain in right finger(s) Purpose Global 05/25/2023 Ambulatory Trigger finger, right index finger Purpose Global 04/27/2023 Care Team Organization Name Specialty Phone Email Start Date End Da te Purpose Global Carl Dawn Primary [facility] 02/06/2025 025 Purpose Global Carl Dawn [facility] 04/27/2023 025 Purpose Global Carl Dawn Primary [facility] 04/27/2023 023 Purpose Global Colin Covarrubias Primary Care 04/27/2023 04/27/2023
--- OUTSIDE RECORDS SUMMARY | 2025-06-05 08:47 | XMS_ITS | Encounter Summary ---
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 Name Role Phone Carl Dawn MD Primary Care Provider Self-Referred, Patient Unavailable Unavailab le Encounter Details Date Type Department Care Team (Late st Contact Info) Description 07/05/2022 Procedure Pass [facility] Cardio EP Device Monitoring [address] [place], [place] [phone] Social History Tobacco Use Types Packs/Day Years [...] [facility] Cardio EP Device Monitoring [address] [place] [address] 11/03/2022 Procedure Pass [facility] Cardio EP Device Monitoring [address] [place] [address] 01/18/2023 Procedure Pass [facility] Cardio EP Device Monitoring [address] [place] [address] 04/22/2023 Procedure Pass [facility] Cardio EP Device Monitoring [address] [place], [place] [id number] 05/09/2023 Procedure Pass [facility] Cardio EP Device Monitoring [address] [place] [address] 07/13/2023 Procedure Pass [facility] Cardio EP Device Monitoring [address] [place] [address] 09/21/2023 Procedure Pass [facility] Cardio EP Device Monitoring [address] [place] [address] 12/07/2023 Procedure Pass [facility] Cardio EP Device Monitoring [address] [place] [address] 02/14/2024 Procedure Pass [facility] Cardio EP Device Monitoring [address] [place] [address] 06/20/2024 Procedure Pass [facility] Cardio EP Device Monitoring [address] [place] [address] 01/11/2025 Procedure Pass [facility] Cardio EP Device Monitoring [address] [place] [address] 04/12/2025 Procedure Pass [facility] Cardio EP Device Monitoring [address] [place] [address] 04/12/2025 Procedure Pass [facility] Cardio EP Device Monitoring [address] [place] [address] 06/14/2025 Procedure Pass [facility] PERIOPERATIVE DEPT [address] [place] [phone] 06/14/2025 7:45 AM EDT Hospital Encounter [facility] PERIOPERATIVE DEPT [address] [place] [phone] Kobe Delgado MD [address] [place] [phone] [email or web address] 06/14/2025 7:45 AM EDT Anesthesia Event [facility] PERIOPERATIVE DEPT [address] [place] [phone] Mike Oscar MD 55 [facility] [address] [place] [phone] [email or web address] Katy Steiner, LUCIA [address] [place] [phone] [email or web address] 06/14/2025 7:45 AM EDT - 06/14/2025 10:53 AM EDT Surgery [facility] PERIOPERATIVE DEPT [address] [place] [address] Kobe Delgado MD [address] [address] [email or web address] ARTHROSCOPIC REPAIR ROTATOR CUFF SHOULDER 06/26/2025 10:40 AM EDT Office Visit [facility] Department of Orthopaedic Surgery, Sports Medicine Service 52 [facility], [address] [place] [address] Kobe Delgado MD [address] [address] [email or web address] 07/26/2025 9:00 AM EDT Appointment [facility] Cardio EP Device Monitoring [address] [place] [address] Jenifer Castañeda MD, MS [address] [address] [email or web address] 10/16/2025 11:00 AM EST Appointment [facility] Cardio EP Device Monitoring [address] [place] [address] Jenifer Castañeda MD, MS [address] [address] [email or web address] 10/16/2025 11:30 AM EST Office Visit [facility] Lo Cardiovascular Clinic [address] [place] [address] Jenifer Castañeda MD, MS [address] [address] [email or web address] Scheduled Procedures Name Priority Associated Diagnoses Date/Ti [...] documented as of this encounter 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 It is not the complete legal health record.[facility]
--- OUTSIDE RECORDS SUMMARY | 2025-06-05 08:48 | XMS_ITS | Encounter Summary ---
Author Organization [facility] Address [address] [place] [phone] Phone Care Team Providers Care Director Of Donor Relations Name Role Phone Carl Dawn MD Primary Care Provider Self-Referred, Patient Unavailable Unavailab le Encounter Details Date Type Department Care Team (Late st Contact Info) Description 06/20/2024 Procedure Pass [facility] Cardio EP Device Monitoring [address] [place] [address] Social History Tobacco Use Types Packs/Day Years [...] (Latest Contact Info) Description 10/23/2022 Procedure Pass [facility] Cardio EP Device Monitoring [address] [place] [address] 11/03/2022 Procedure Pass [facility] Cardio EP Device Monitoring [address] [place] [address] 01/18/2023 Procedure Pass [facility] Cardio EP Device Monitoring [address] [place] [address] 04/22/2023 Procedure Pass [facility] Cardio EP Device Monitoring [address] [place] [address] 05/09/2023 Procedure Pass [facility] Cardio EP Device Monitoring [address] [place] [address] 07/13/2023 Procedure Pass [facility] Cardio EP Device Monitoring [address] [place] [address] 09/21/2023 Procedure Pass [facility] Cardio EP Device Monitoring [address] [place] [address] 12/07/2023 Procedure Pass [facility] Cardio EP Device Monitoring [address] [place] [address] 02/14/2024 Procedure Pass [facility] Cardio EP Device Monitoring [address] [place] [address] 06/20/2024 Procedure Pass [facility] Cardio EP Device Monitoring [address] [place] [address] 01/11/2025 Procedure Pass [facility] Cardio EP Device Monitoring [address] [place] [address] 04/12/2025 Procedure Pass [facility] Cardio EP Device Monitoring [address] [place] [address] 04/12/2025 Procedure Pass [facility] Cardio EP Device Monitoring [address] [place] [address] 06/14/2025 Procedure Pass [facility] PERIOPERATIVE DEPT [address] [place] [phone] 06/14/2025 7:45 AM EDT Hospital Encounter [facility] PERIOPERATIVE DEPT [address] [place] [address] Kobe Delgado MD [address] [place] [phone] [email or web address] [email or web address] 06/14/2025 7:45 AM EDT Anesthesia Event [facility] PERIOPERATIVE DEPT [address] [place] [phone] Mike Oscar MD [address] [place] [address] [address] [place] [address] [email or web address] Katy Steiner, LUCIA [address] [place] [phone] [email or web address] 06/14/2025 7:45 AM EDT - 06/14/2025 10:53 AM EDT Surgery [facility] PERIOPERATIVE DEPT [address] [place] [phone] Kobe Delgado MD [address] [address] [email or web address] ARTHROSCOPIC REPAIR ROTATOR CUFF SHOULDER 06/26/2025 10:40 AM EDT Office Visit [facility] Department of Orthopaedic Surgery, Sports Medicine Service 52 [facility], [address] [place] [address] Kobe Delgado MD [address] [place] [address] [email or web address] 07/26/2025 9:00 AM EDT Appointment [facility] Cardio EP Device Monitoring [address] [place] [address] Jenifer Castañeda MD, MS [address] [address] [email or web address] 10/16/2025 11:00 AM EST Appointment [facility] Cardio EP Device Monitoring [address] [place] [address] Jenifer Castañeda MD, MS [address] [address] [email or web address] 10/16/2025 11:30 AM EST Office Visit [facility] Cardiovascular Clinic [address] [place] [address] Jenifer Castañeda MD, MS [address] [place] [address] [email or web address] Scheduled Procedures Name Priority Associated Diagnoses Date/Ti [...] documented as of this encounter Care Teams Director Of Donor Relations Relationship Specialty Start Date End Date Carl Dawn MD [address] [place] [phone] PCP - General Internal Medicine 02/04/22 Self-Referred, Patient 01/18/23 documented as of this encounter Additional Source Comments The information contained in this document represents components of the legal health record. It is not the complete legal health record.[facility]
--- OUTSIDE RECORDS SUMMARY | 2025-06-05 08:48 | XMS_ITS | Encounter Summary ---
Author Organization [facility] Address [address] [place] [address] Care Team Providers Care Guest Services Assistant Name Role Phone Carl Dawn MD Primary Care Provider Encounter Details Date Type Department Care Team (Late st Contact Info) Description 05/17/2025 Scanned Document [facility] [address] [phone] Anthony Taveras MD [address] [place] [phone] Social History Tobacco Use Types Packs/Day Years Used Date Smoking Tobacco: Never Assessed Comments Unknown Sex and Gender Information Value Date Recorded Sex Assigned at Choose not to disclose 8:59 AM EDT Legal Sex Male 3:12 PM EDT Gender Identity Choose not to disclose 8:59 AM EDT Sexual Orientation Choose not to disclose 2022 8:59 AM EDT documented as of this encounter Plan of Treatment Upcoming Encounters Date Type Department Care Team (Late st Contact Info) Description 06/12/2025 8:00 AM EDT Office Visit [facility] [address] [place] [address] Oumar Godfrey MD [address] [place] [phone] documented as of this encounter Visit Diagnoses Not on filedocumented in this encounter Care Teams Guest Services Assistant Relationship Specialty Start Date End Date Carl Dawn MD [address] [address] PCP - General 04/23/21 documented as of this encounter
--- OUTSIDE RECORDS SUMMARY | 2025-06-05 08:48 | XMS_ITS | Clinical Summary ---
Author Organization [facility] Address [address] [place] [address] Care Team Providers Care Ortho Tech Name Role Phone Carl Dawn MD Primary Care Provider Allergies Active Allergy Reactions Criticality Noted Date Comments Penicillins Itching,Rash/Dermatitis Low 04/27/2023 Medications traMADol (ULTRAM) 50 MG tabletIndication s:Anterior dislocation of right shoulder, initial encounter Take 1 tablet (50 mg total) by mouth 3 times daily (every 8 hours) as needed for severe pain. 20 tablet 04/23/2025 Active Active Problems No known active problems Encounters Date Type Department Care Team Description 05/17/2025 Scanned Document Orthopedic [address] [phone] Anthony Taveras MD 04/23/2025 Orders Only Orthopedic [address] [phone] Shanthi Rueda PA-C Anterior dislocation of right shoulder, initial encounter 04/15/2025 2:15 PM EDT Office Visit Orthopedic [address] [phone] Anthony Taveras MD Anterior dislocation of right shoulder, subsequent encounter (Primary Dx) 04/10/2025 10:37 AM EDT - 04/10/2025 11:59 PM EDT Hospital Encounter [facility] V[facility] [place] - Electrophysiology [address] [facility] [address] [place] [phone] Mathew Lyman MD Arrived Discharge Disposition: Home or Self Care 04/10/2025 10:14 AM EDT - 04/10/2025 10:36 AM EDT Hospital Encounter [facility] [address] [place] [address] Anthony Taveras MD Anterior dislocation of right shoulder, initial encounter Discharge Disposition: Home or Self Care 04/08/2025 Scanned Document [facility] HIM [address] [facility] [address] [place] [phone] Radiology, Scan 04/03/2025 9:24 AM EDT - 04/03/2025 11:59 PM EDT Hospital Encounter [facility] [address] [place] [phone] Mathew Lmyan MD Cardiac pacemaker in situ Discharge Disposition: Home or Self Care 03/18/2025 Orders [facility] [address] [phone] Anthony Taveras MD Anterior dislocation of right shoulder, initial encounter from Last 3 Months Social History Tobacco Use Types Packs/Day Years Used Date Smoking Tobacco: Never Assessed Comments Unknown Sex and Gender Information Value Date Recorded Sex Assigned at Choose not to disclose 8:59 AM EDT Legal Sex Male 3:12 PM EDT Gender Identity Choose not to disclose 8:59 AM EDT Sexual Orientation Choose not to disclose 2022 8:59 AM EDT Plan of Treatment Upcoming Encounters Date Type Department Care Team (Late st Contact Info) Description 06/12/2025 8:00 AM EDT [facility] [address] [facility] [address] [place] [address] Oumar Godfrey MD [address] [facility] [address] [place] [address] Health Maintenance Due Date Last Done Comments Advance Care Planning 1945 Hepatitis C Virus Screening 1945 DTaP/Tdap/Td Vaccines (1 - Tdap) 1966 Pneumococcal Vaccines 50+ (1 of 1 - PCV) 1997 Zoster (Shingles) Vaccine (1 of 2) 1997 DXA Bone Density (Females,Ages 65 and older) 2012 RSV Vaccine 60 years and older and Patients (1 - 1-dose 75+ series) 2022 Influenza Vaccine 05/03/2025 07/11/2024, , 07/07/2022, Additional history exists COVID-19 Vaccine ( season) 2025 06/23/2024, 07/28/2023, 07/22/2022, Additional history exists Hepatitis B Vaccines Aged Out No long er eligible based on patient's age to complete this topic Medical Devices Implanted Type Area Band Tier Device Identifier Shelf Expiration Date Model / Serial / Lot Medtronic [id number] Angle Quad Extrusion Technician-P [id number] Implanted:06/27 (Quantity not on file) Pacemaker Medtronic [id number] ANGLE QUAD BUYER LIAISON-P / [id number] / Procedures Procedure Name Priority Date/Time Associated Diagnosis Comments MRI SHOULDER W/O CONTRAST-RIGHT Routine 04/10/2025 11:30 AM EDT Anterior dislocation of right shoulder, initial encounter PM DUAL LEAD EVAL WITH PROGRAMMING, [id number] Routine 04/10/2025 11:30 AM EDT Encounter for interrogation of cardiac pacemaker HX OUTSIDE ORDER 04/08/2025 12:5 0 PM EDT XR CHEST 2 VIEWS Routine 04/03/2025 9:42 AM EDT Cardiac pacemaker in situ from Last 3 Months Results * MRI Shoulder w/o contrast-Right (04/10/2025 11:30 AM EDT) Anatomical Region Laterality Modality Shoulder Right Magnetic Resonan ce 04/10/2025 10:3 9 AM EDT Impressions 04/11/2025 12:31 PM EDT 1. Full-thickness, full width tear of the supraspinatus tendon, with failure at its footprint. 2. Full-thickness, partial width tear of the superior subscapularis tendon. 3. Infraspinatus tendinosis. 4. Medial dislocation of the biceps tendon. 5. Extensive degenerative tearing of the anterior and posterior labrum. 6. 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 Narrative 04/11/2025 12:31 PM EDT EXAMINATION: MRI RIGHT SHOULDER WITHOUT CONTRAST CLINICAL INFORMATION: Anterior dislocation COMPARISON: February 20, 2025 TECHNIQUE: Multiplanar MR images of the right shoulder were obtained on a high-field scanner without intravenous contrast. FINDINGS: ROTATOR CUFF: There is full-thickness, full width tear of the supraspinatus tendon, with failure at its footprint and differential retraction of torn fibers approximately 2.8 cm anterior to the and 1.8 cm posteriorly. Infraspinatus tendinosis. There is full-thickness, partial width tear of the superior subscapularis tendon. Teres minor tendon is intact. No muscle atrophy or fatty infiltration. BICEPS: Medial dislocation of the biceps tendon. Bicipital anchor is intact. CORACOACROMIAL ARCH: There appears to be chronic posttraumatic changes of the acromioclavicular joint with widening of the joint. Small osteophytic spurring. LABRUM/CAPSULE: Extensive degenerative tearing of the anterior and posterior labrum. GLENOHUMERAL JOINT/MARROW: High riding humeral head secondary to rotator cuff injury, described above. Mild chondral thinning. Small joint effusion. Procedure Note Anthony Oseguera MD - 04/11/2025 EXAMINATION: MRI RIGHT SHOULDER WITHOUT CONTRAST CLINICAL INFORMATION: Anterior dislocation COMPARISON: February 20, 2025 TECHNIQUE: Multiplanar MR images of the right shoulder were obtained on a high-field scanner without intravenous contrast. FINDINGS: ROTATOR CUFF: There is full-thickness, full width tear of the supraspinatus tendon, with failure at its footprint and differential retraction of torn fibers approximately 2.8 cm anterior to the and 1.8 cm posteriorly. Infraspinatus tendinosis. There is full-thickness, partial width tear of the superior subscapularis tendon. Teres minor tendon is intact. No muscle atrophy or fatty infiltration. BICEPS: Medial dislocation of the biceps tendon. Bicipital anchor is intact. CORACOACROMIAL ARCH: There appears to be chronic posttraumatic changes of the acromioclavicular joint with widening of the joint. Small osteophytic spurring. LABRUM/CAPSULE: Extensive degenerative tearing of the anterior and posterior labrum. GLENOHUMERAL JOINT/MARROW: High riding humeral head secondary to rotator cuff injury, described above. Mild chondral thinning. Small joint effusion. IMPRESSION: 1. Full-thickness, full width tear of the supraspinatus tendon, with failure at its footprint. 2. Full-thickness, partial width tear of the superior subscapularis tendon. 3. Infraspinatus tendinosis. 4. Medial dislocation of the biceps tendon. 5. Extensive degenerative tearing of the anterior and posterior labrum. 6. 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 us Anthony Taveras MD IMG MRI ORDERABLES Final Resu lt * PM DUAL LEAD EVAL WITH PROGRAMMING, [id number] (04/10/2025 11:30 AM EDT) Date Time Interrogation Session [id number] PACEART Implantable Pulse Generator Band Tier Medtronic PACEART Implantable Pulse Generator Model [id number] Angle Quad BUYER LIAISON-P PACEART Implantable Pulse Generator Serial Number [id number] PACEART Implantable Pulse Generator Type Cardiac Resynchronization Therapy - Pacemaker PACEART Implantable Pulse Generator Implant Date ,220,925,200,000 PACEART Nicolás Setting Mode (NBG Code) VVIR PACEART Nicolás Setting Lower Rate Limit 60 {beats} /min PACEART Nicolás Setting Maximum Sensor Rate 130 {beats} /min PACEART RA Sensing Polarity Bipolar PACEART RA Sensitivity Off PACEART RV Sensing Polarity Bipolar PACEART RV Sensing Anode Location Right Ventricle PACEART RV Sensing Anode Terminal Ring PACEART RV Sensing Cathode Location Right Ventricle PACEART RV Sensing Cathode Terminal Tip PACEART RV Sensitivity 2.8 mV PACEART Ventricular chambers paced during BUYER LIAISON pacing. BiV PACEART BUYER LIAISON LV-RV Delay 20 ms PACEART RV Pacing Polarity Bipolar PACEART Lead Channel Setting Pacing Anode Location Right Ventricle PACEART RV Pacing Anode Terminal Ring PACEART Lead Channel Setting Sensing Cathode Location Right Ventricle PACEART RV Pacing Cathode Terminal Tip PACEART RV Pacing Pulse Width 0.4 ms PACEART RV Pacing Amplitude 2 V PACEART LV Pacing Polarity Unipolar PACEART LV Pacing Anode Terminal Can PACEART LV Sensing Cathode Location Left Ventricle PACEART LV Pacing Cathode Terminal Tip PACEART LV Pacing Pulse Width 0.4 ms PACEART LV Pacing Amplitude 1.25 V PACEART Zone Setting Type Category VF PACEART Zone Setting Vendor Type Category V High Rate PACEART Zone Setting Type Category VT PACEART Zone Setting Vendor Type Category FastVT PACEART Zone Setting Type Category VT PACEART Zone Setting Vendor Type Category VT PACEART Zone Setting Type Category VT PACEART Zone Setting Vendor Type Category MonVT PACEART Zone Setting Detection Interval 400 ms PACEART Zone Setting Type Category ATRIAL_FIBRILLATION PACEART Zone Setting Vendor Type Category FastATAF PACEART Zone Setting Type Category AT/AF PACEART Tachy zone therapies summary Monitored PACEART RA Lead Impedance Value 399 ohm PACEART RA Lead Impedance Value 361 ohm PACEART RV Lead Impedance Value 475 ohm PACEART RV Lead Impedance Value 399 ohm PACEART RV Sensing Intrinsic Amplitude 18.125 mV PACEART RV Sensing Intrinsic Amplitude 16.125 mV PACEART RV Lead Pacing Threshold Amplitude 0.75 V PACEART RV Lead Pacing Threshold Pulse Width 0.4 ms PACEART RV Stat leads lowpower castillo Ring PACEART RV Stat leads lowpower castillo Tip PACEART LV Lead Impedance Value 570 ohm PACEART LV Lead Impedance Value 703 ohm PACEART LV Lead Impedance Value 703 ohm PACEART LV Lead Impedance Value 513 ohm PACEART LV Lead Impedance Value 1,121 ohm PACEART LV Lead Impedance Value 1,178 ohm PACEART LV Lead Impedance Value 969 ohm PACEART LV Lead Impedance Value 779 ohm PACEART LV Lead Impedance Value 1,026 ohm PACEART LV Lead Impedance Value 1,102 ohm PACEART LV Lead Threshold Amplitude 0.75 V PACEART LV Lead Threshold Pulse Width 0.4 ms PACEART Battery Status OK PACEART Battery Remaining Longevity 113 mo PACEART Battery Voltage 3.01 V PACEART RA Percent Paced-since last reset 0 % PACEART RV Percent Paced-since last reset 98.7 % PACEART LV Percent Paced-since last reset 98.67 % PACEART Nicolás Statistic AP ISOTOPE TECHNICIAN Percent 0 % PACEART Nicolás Statistic ISOTOPE TECHNICIAN Percent 98.7 % PACEART Nicolás Statistic AP VS Percent 0 % PACEART Nicolás Statistic VS Percent 1.3 % PACEART BUYER LIAISON Statistic BUYER LIAISON Percent Paced 98.67 % PACEART Episode Statistic Recent Count 0 PACEART STAT Episode type AT/AF PACEART Episode Statistic Recent Count 0 PACEART STAT Episode type Patient Activated PACEART Episode Statistic Recent Count 0 PACEART STAT Episode type SVT PACEART Episode Statistic Recent Count 2 PACEART STAT Episode type VT PACEART Episode Statistic Recent Count 0 PACEART STAT Episode type VT PACEART STAT Episode type AT/AF PACEART STAT Episode type Patient Activated PACEART STAT Episode type SVT PACEART STAT Episode type VT PACEART STAT Episode type VT PACEART Anatomical Region Laterality Modality Other 04/10/2025 11:5 0 AM EDT Narrative 04/11/2025 7:56 AM EDT Pacemaker interrogation performed pre MRI scan. MRI checklist completed. Presenting rhythm: BP @ 65 bpm. Underlying rhythm: Irregular VS MRI mode enabled. Mode programmed to VOO @ 75 bpm. Post MRI scan, MRI mode disabled. Lead tests within normal range. All original programming restored. LUCIA Webster us Mathew Lyman MD CV CARDIAC SERVICES OR DERABLES Final Result * OUTSIDE ORDER (04/08/2025 12:50 PM EDT) us Scan Radiology HX AMB PROCEDURES Final Result * XR Chest 2 views (04/03/2025 9:42 AM EDT) Anatomical Region Laterality Modality Chest Computed Radiogr aphy 04/03/2025 9:29 AM EDT Impressions 04/04/2025 12:02 PM EDT No acute pulmonary disease. Narrative 04/04/2025 12:02 PM EDT EXAMINATION: XR CHEST CLINICAL INFORMATION: Z95.0-Cardiac pacemaker in situ; pacemaker in situ COMPARISON: 05/11/2021 TECHNIQUE: PA and lateral radiographs of the chest were obtained. FINDINGS: Dual-chamber pacemaker placement in good position. No pneumothorax. Lungs are clear. No focal consolidation or mass. Normal pulmonary vascularity. No pleural effusion or pneumothorax. Normal heart size. Regional skeleton intact. Procedure Note Rogelio Jean MD - 04/04/2025 EXAMINATION: XR CHEST CLINICAL INFORMATION: Z95.0-Cardiac pacemaker in situ; pacemaker in situ COMPARISON: 05/11/2021 TECHNIQUE: PA and lateral radiographs of the chest were obtained. FINDINGS: Dual-chamber pacemaker placement in good position. No pneumothorax. Lungs are clear. No focal consolidation or mass. Normal pulmonary vascularity. No pleural effusion or pneumothorax. Normal heart size. Regional skeleton intact. IMPRESSION: No acute pulmonary disease. Mathew Lyman MD IM DIAGNOSTIC IMAGING ORDERABLES Final Result from Last 3 Months Insurance [facility] MEDICARE [facility] MEDIC[facility] Care Teams Ortho Tech Relationship Specialty Start [place] [address] [facility] [address] [place] [address] PCP - General 04/23/21
--- OUTSIDE RECORDS SUMMARY | 2025-06-05 08:48 | XMS_ITS | Encounter Summary ---
Author Organization [facility] Address [address] [place] [phone] Phone Care Team Providers Care Cuff Maker Name Role Phone Carl Dawn MD Primary Care Provider Self-Referred, Patient Unavailable Unavailab le Encounter Details Date Type Department Care Team (Late st Contact Info) Description 01/11/2025 Procedure Pass [facility] Cardio EP Device Monitoring [address] [place] [address] Social History Tobacco Use Types Packs/Day Years [...] (Latest Contact Info) Description 10/23/2022 Procedure Pass [facility] Cardio EP Device Monitoring [address] [place] [address] 11/03/2022 Procedure Pass [facility] Cardio EP Device Monitoring [address] [place] [address] 01/18/2023 Procedure Pass [facility] Cardio EP Device Monitoring [address] [place] [address] 04/22/2023 Procedure Pass [facility] Cardio EP Device Monitoring [address] [place] [address] 05/09/2023 Procedure Pass [facility] Cardio EP Device Monitoring [address] [place] [address] 07/13/2023 Procedure Pass [facility] Cardio EP Device Monitoring [address] [place] [address] 09/21/2023 Procedure Pass [facility] Cardio EP Device Monitoring [address] [place] [address] 12/07/2023 Procedure Pass [facility] Cardio EP Device Monitoring [address] [place] [address] 02/14/2024 Procedure Pass [facility] Cardio EP Device Monitoring [address] [place] [address] 06/20/2024 Procedure Pass [facility] Cardio EP Device Monitoring [address] [place] [address] 01/11/2025 Procedure Pass [facility] Cardio EP Device Monitoring [address] [place] [address] 04/12/2025 Procedure Pass [facility] Cardio EP Device Monitoring [address] [place] [address] 04/12/2025 Procedure Pass [facility] Cardio EP Device Monitoring [address] [place] [address] 06/14/2025 Procedure Pass [facility] PERIOPERATIVE DEPT [address] [place] [phone] 06/14/2025 7:45 AM EDT Hospital Encounter [facility] PERIOPERATIVE DEPT [address] [place] [address] Kobe Delgado MD [address] [place] [phone] [email or web address] 06/14/2025 7:45 AM EDT Anesthesia Event [facility] PERIOPERATIVE DEPT [address] [place] [address] Mike Ocsar MD [address] [place] [address] [address] [place] [address] [email or web address] Katy Steiner, LUCIA [address] [place] [phone] [email or web address] 06/14/2025 7:45 AM EDT - 06/14/2025 10:53 AM EDT Surgery [facility] PERIOPERATIVE DEPT [address] [place] [phone] Kobe Delgado MD [address] [address] [email or web address] ARTHROSCOPIC REPAIR ROTATOR CUFF SHOULDER 06/26/2025 10:40 AM EDT Office Visit [facility] Department of Orthopaedic Surgery, Sports Medicine Service [address] [facility] [place] [address] Kobe Delgado MD [address] [place] [phone] [email or web address] 07/26/2025 9:00 AM EDT Appointment [facility] Cardio EP Device Monitoring [address] [place] [address] Jenifer Castañeda MD, MS [address] [address] [email or web address] 10/16/2025 11:00 AM EST Appointment [facility] Cardio EP Device Monitoring [address] [place] [address] Jenifer Castañeda MD, MS [address] [address] [email or web address] 10/16/2025 11:30 AM EST Office Visit [facility] Cardiovascular Clinic [address] [place] [address] Jenifer Castañeda MD, MS [address] [place] [address] [email or web address] Scheduled Procedures Name Priority Associated Diagnoses [...] documented as of this encounter Care Teams Cuff Maker Relationship Specialty Start Date End Date Carl Dawn MD [address] [place] [phone] PCP - General Internal Medicine 02/04/22 Self-Referred, Patient 01/18/23 documented as of this encounter Additional Source Comments The information contained in this document represents components of the legal health record. It is not the complete legal health record.[facility]
--- OUTSIDE RECORDS SUMMARY | 2025-06-05 08:48 | XMS_ITS | Encounter Summary ---
Author Organization [facility] Address [address] [place] [address] [place] [phone] Phone Care Team Providers Care Hourly Team Members Name Role Phone Carl Dawn MD Primary Care Provider Self-Referred, Patient Unavailable Unavailab le Reason for Visit * Reason Onset Date Comments Garry.pt advice 03/27/2025 Encounter Details Date Type Department Care Team ([facility] st Contact Info) Description 03/27/2025 Telephone [facility] Cardiovascular Clinic [address] [place] [address] Jenifer Castañeda MD, MS [address] [facility] [place] [address] [email or web address] Social History Tobacco Use Types Packs/Day Years [...] AM EDT documented as of this encounter Progress Notes * Elisha Green - 03/27/2025 8:00 AM EDT Good morning, Pt is scheduled for a chest Xray next week and a MRI for his shoulder on 04/10/25 at [facility], pt would like a CB to confirm his pacemaker will be ok through the MRI. CB# [phone] Thank you Elisha Jara Patient Geodetic Advisor Department of Medicine [facility] documented in this encounter Plan of Treatment Upcoming Encounters Date Type Department Care Team (Latest Contact Info) Description 10/23/2022 Procedure Pass [facility] Cardio EP Device Monitoring [address] [place] [address] 11/03/2022 Procedure Pass [facility] Cardio EP Device Monitoring [address] [place] [address] 01/18/2023 Procedure Pass [facility] Cardio EP Device Monitoring [address] [place] [address] 04/22/2023 Procedure Pass [facility] Cardio EP Device Monitoring [address] [place] [address] 05/09/2023 Procedure Pass [facility] Cardio EP Device Monitoring [address] [place] [address] 07/13/2023 Procedure Pass [facility] Cardio EP Device Monitoring [address] [place] [address] 09/21/2023 Procedure Pass [facility] Cardio EP Device Monitoring [address] [place] [address] 12/07/2023 Procedure Pass [facility] Cardio EP Device Monitoring [address] [place] [address] 02/14/2024 Procedure Pass [facility] Cardio EP Device Monitoring [address] [place] [address] 06/20/2024 Procedure Pass [facility] Cardio EP Device Monitoring [address] [place] [address] 01/11/2025 Procedure Pass [facility] Cardio EP Device Monitoring [address] [place] [address] 04/12/2025 Procedure Pass [facility] Cardio EP Device Monitoring [address] [place] [address] 04/12/2025 Procedure Pass [facility] Cardio EP Device Monitoring [address] [place] [address] 06/14/2025 Procedure Pass [facility] PERIOPER[facility]IVE DEPT [address] [place] [address] 06/14/2025 7:45 AM EDT Hospital Encounter [facility] PERIOPERATIVE DEPT [address] [place] [phone] Kobe Delgado MD [address] [address] [email or web address] 06/14/2025 7:45 AM EDT Anesthesia Event [facility] PERIOPERATIVE DEPT [address] [place] [phone] Mike Oscar MD [address] [place] [phone] [email or web address] Katy Steiner RN [address] [place] [phone] [email or web address] 06/14/2025 7:45 AM EDT - 06/14/2025 10:53 AM EDT Surgery [facility] PERIOPERATIVE DEPT [address] [place] [phone] Kobe Delgado MD [address] [place] [phone] [email or web address] ARTHROSCOPIC REPAIR ROTATOR CUFF SHOULDER 06/26/2025 10:40 AM EDT Office Visit [facility] Department of Orthopaedic Surgery, Sports Medicine Service [address] [facility], [address] [place] [address] Kobe Delgado MD [address] [phone] [email or web address] 07/26/2025 9:00 AM EDT Appointment [facility] Cardio EP Device Monitoring [address] [place] [address] Jenifer Castañeda MD, MS [address] [address] [email or web address] 10/16/2025 11:00 AM EST Appointment [facility] Cardio EP Device Monitoring [address] [place] [address] Jenifer Castañeda MD, MS [address] [address] [email or web address] 10/16/2025 11:30 AM EST Office Visit [facility] Cardiovascular Clinic [address] [place] [address] Jenifer Castañeda MD, MS [address] [address] [email or web address] Scheduled Procedures Name Priority Associated Diagnoses Date/Ti [...] documented as of this encounter Care Teams Hourly Team Members Relationship Specialty Start Date End Date Carl Dawn MD [address] [place] [phone] PCP - General Internal Medicine 02/04/22 Self-Referred, Patient 01/18/23 documented as of this encounter Additional Source Comments The information contained in this document represents components of the legal health record. It is not the complete legal health record.[facility]
--- OUTSIDE RECORDS SUMMARY | 2025-06-05 08:48 | XMS_ITS | Encounter Summary ---
Author Organization [facility] Address [address] [place] [address] Phone Care Team Providers Care Land Clearer Name Role Phone Carl Dawn MD Primary Care Provider Self-Referred, Patient Unavailable Unavailab le Encounter Details Date Type Department Care Team (Late st Contact Info) Description 02/14/2024 Procedure Pass [facility] Cardio EP Device Monitoring [address] [place] [address] Social History Tobacco Use Types Packs/Day Years [...] (Latest Contact Info) Description 10/23/2022 Procedure Pass [facility] Cardio EP Device Monitoring [address] [place] [address] 11/03/2022 Procedure Pass [facility] Cardio EP Device Monitoring [address] [place] [address] 01/18/2023 Procedure Pass [facility] Cardio EP Device Monitoring [address] [place] [address] 04/22/2023 Procedure Pass [facility] Cardio EP Device Monitoring [address] [place] [address] 05/09/2023 Procedure Pass [facility] Cardio EP Device Monitoring [address] [place] [address] 07/13/2023 Procedure Pass [facility] Cardio EP Device Monitoring [address] [place] [address] 09/21/2023 Procedure Pass [facility] Cardio EP Device Monitoring [address] [place] [address] 12/07/2023 Procedure Pass [facility] Cardio EP Device Monitoring [address] [place] [address] 02/14/2024 Procedure Pass [facility] Cardio EP Device Monitoring [address] [place] [address] 06/20/2024 Procedure Pass [facility] Cardio EP Device Monitoring [address] [place] [address] 01/11/2025 Procedure Pass [facility] Cardio EP Device Monitoring [address] [place] [address] 04/12/2025 Procedure Pass [facility] Cardio EP Device Monitoring [address] [place] [address] 04/12/2025 Procedure Pass [facility] Cardio EP Device Monitoring [address] [place] [address] 06/14/2025 Procedure Pass [facility] [address] [place] [phone] 06/14/2025 7:45 AM EDT Hospital Encounter [facility] [address] [place] [address] Kobe Delgado MD [address] [place] [address] [email or web address] 06/14/2025 7:45 AM EDT Anesthesia Event [facility] [address] [place] [address] Mike Oscar MD [address] [place] [address] 444 [place] [address] [email or web address]. Katy Steiner, LUCIA [address] [place] [phone] [email or web address] 06/14/2025 7:45 AM EDT - 06/14/2025 10:53 AM EDT Surgery [facility] [address] [place] [phone] Kobe Delgado MD [address] [phone] [email or web address] ARTHROSCOPIC REPAIR ROTATOR CUFF SHOULDER 06/26/2025 10:40 AM EDT Office Visit [facility] Department of Orthopaedic Surgery, Sports Medicine Service 52 [facility], [address] [place] [address] Kobe Delgado MD [address] [place] [address] [email or web address] 07/26/2025 9:00 AM EDT Appointment [facility] Cardio EP Device Monitoring [address] [place] [address] Jenifer Castañeda MD, MS [address] [address] [email or web address] 10/16/2025 11:00 AM EST Appointment [facility] Cardio EP Device Monitoring [address] [place] [address] Jenifer Castañeda MD, MS [address] [address] [email or web address] 10/16/2025 11:30 AM EST Office [facility] Cardiovascular Clinic [address] [place] [address] Jenifer Castañeda MD, MS [address] [place] [address] [email or web address] Scheduled Procedures Name Priority Associated [...] documented as of this encounter Care Teams Land Clearer Relationship Specialty Start Date End Date Carl Dawn MD [address] [place] [address] PCP - General Internal Medicine 02/04/22 Self-Referred, Patient 01/18/23 documented as of this encounter Additional Source Comments The information contained in this document represents components of the legal health record. It is not the complete legal health record.[facility]
--- OUTSIDE RECORDS SUMMARY | 2025-06-05 08:48 | XMS_ITS | Encounter Summary ---
Author Organization [facility] Address [address] [place] [address] Care Team Providers Care Dining Room Server Name Role Phone Carl Dawn MD Primary Care Provider Encounter Details Date Type Department Care Team (Late st Contact Info) Description 04/08/2025 Scanned Document [facility] 80 [facility] [address] [place] [phone] Radiology, Scan Social History Tobacco Use Types Packs/Day Years [...] 8:00 AM EDT Office Visit [facility] [address] [place] [address] Oumar Godfrey MD 31 [facility] [address] [place] [address] documented as of this encounter Procedures Procedure Name Priority Date/Time Associated Diagnosis Comments HX OUTSIDE ORDER 04/08/2025 12:50 PM EDT documented in this encounter Results * OUTSIDE ORDER (04/08/2025 12:50 PM EDT) us Scan Radiology HX AMB PROCEDURES Final Result documented in this encounter Visit Diagnoses Not on filedocumented in this encounter Care Teams Dining Room Server Relationship Specialty Start Date End Date Carl Dawn MD [address] [place] [address] PCP - General 04/23/21 documented as of this encounter
--- OUTSIDE RECORDS SUMMARY | 2025-06-05 08:48 | XMS_ITS | Encounter Summary ---
Author Organization [facility] Address [address] [place] [phone] Phone Care Team Providers Care Commanding Officer Traffic Division Name Role Phone Carl Dawn MD Primary Care Provider Self-Referred, Patient Unavailable Unavailab le Encounter Details Date Type Department Care Team (Late st Contact Info) Description 09/21/[address] [facility] Cardio EP Device Monitoring [address] [place] [address] Social History Tobacco Use Types Packs/Day Years [...] (Latest Contact Info) Description 10/23/[address] [facility] Cardio EP Device Monitoring [address] [place] [address] 11/03/[address] [facility] Cardio EP Device Monitoring [address] [place] [address] 01/18/2023 Procedure Pass [facility] Cardio EP Device Monitoring [address] [place] [address] 04/22/2023 Procedure Pass [facility] Cardio EP Device Monitoring [address] [place] [address] 05/09/2023 Procedure Pass [facility] Cardio EP Device Monitoring [address] [place] [address] 07/13/2023 Procedure Pass [facility] Cardio EP Device Monitoring [address] [place] [address] 09/21/2023 Procedure Pass [facility] Cardio EP Device Monitoring [address] [place] [address] 12/07/2023 Procedure Pass [facility] Cardio EP Device Monitoring [address] [place] [address] 02/14/2024 Procedure Pass [facility] Cardio EP Device Monitoring [address] [place] [address] 06/20/[address] [facility] Cardio EP Device Monitoring [address] [place] [address] 01/11/[address] [facility] Cardio EP Device Monitoring [address] [place] [address] 04/12/[address] [facility] Cardio EP Device Monitoring [address] [place] [address] 04/12/[address] [facility] Cardio EP Device Monitoring [address] [place] [address] 06/14/[address] [facility] PER[facility] DEPT [address] [place] [phone] 06/14/2025 7:45 AM EDT Hospital Encounter [facility] [address] [place] [address] Kobe Delgado MD [address] [place] [address] [email or web address] [email or web address] 06/14/2025 7:45 AM EDT Anesthesia Event [facility] [address] [place] [address] Mike Oscar MD [address] [place] [address] 444 [place] [address] [email or web address]. Katy Steiner, LUCIA [address] [place] [phone] [email or web address] 06/14/2025 7:45 AM EDT - 06/14/2025 10:[address] [facility] [address] [place] [phone] Kobe Delgado MD [address] [address] [email or web address] ARTHROSCOPIC REPAIR ROTATOR CUFF SHOULDER 06/26/2025 10:40 AM EDT Office Visit [facility] Department of Orthopaedic Surgery, Sports Medicine Service 52 [facility], [address] [place] [address] Kobe Delgado MD [address] [place] [address] [email or web address] 07/26/2025 9:[address] [facility] Cardio EP Device Monitoring [address] [place] [address] Jenifer Castañeda MD, MS [address] [address] [email or web address] 10/16/2025 11:[address] [facility] Cardio EP Device Monitoring [address] [place] [address] Jenifer Castañeda MD, MS [address] [address] [email or web address] 10/16/2025 11:30 AM EST Office Visit [facility] Cardiovascular Clinic [address] [place] [address] Jenifer Castañeda MD, MS [address] [place] [address] [email or web address] Scheduled Procedures Name Priority Associated Diagnoses Date/Ti [...] documented as of this encounter Care Teams Commanding Officer Traffic Division Relationship Specialty Start Date End Date Carl Dawn MD [address] [place] [phone] PCP - General Internal Medicine 02/04/22 Self-Referred, Patient 01/18/23 documented as of this encounter Additional Source Comments The information contained in this document represents components of the legal health record. It is not the complete legal health record.[facility]
--- OUTSIDE RECORDS SUMMARY | 2025-06-05 08:48 | XMS_ITS | Encounter Summary ---
Author Organization [facility] Address [address] [place] [address] Phone Care Team Providers Care Pediatric Clinical Dietician Name Role Phone Carl Dawn MD Primary Care Provider Self-Referred, Patient Unavailable Unavailab le Encounter Details Date Type Department Care Team (Late st Contact Info) Description 06/28/2022 Procedure Pass [facility] Cardio EP Device Monitoring [address] [place] [address] Social History Tobacco Use Types Packs/Day Years [...] (Latest Contact Info) Description 10/23/2022 Procedure Pass [facility] Cardio EP Device Monitoring [address] [place] [address] 11/03/2022 Procedure Pass [facility] Cardio EP Device Monitoring [address] [place] [address] 01/18/2023 Procedure Pass [facility] Cardio EP Device Monitoring [address] [place] [address] 04/22/2023 Procedure Pass [facility] Cardio EP Device Monitoring [address] [place], [place] [address] 05/09/2023 Procedure Pass [facility] Cardio EP Device Monitoring [address] [place] [address] 07/13/2023 Procedure Pass [facility] Cardio EP Device Monitoring [address] [place] [address] 09/21/2023 Procedure Pass [facility] Cardio EP Device Monitoring [address] [place] [address] 12/07/2023 Procedure Pass [facility] Cardio EP Device Monitoring [address] [place] [address] 02/14/2024 Procedure Pass [facility] Cardio EP Device Monitoring [address] [place] [address] 06/20/2024 Procedure Pass [facility] Cardio EP Device Monitoring [address] [place] [address] 01/11/2025 Procedure Pass [facility] Cardio EP Device Monitoring [address] [place] [address] 04/12/2025 Procedure Pass [facility] Cardio EP Device Monitoring [address] [place] [address] 04/12/2025 Procedure Pass [facility] Cardio EP Device Monitoring [address] [place] [address] 06/14/2025 Procedure Pass [facility] [address] [place] [phone] 06/14/2025 7:45 AM EDT Hospital Encounter [facility] [address] [place] [phone] Kobe Delgado MD [address] [place] [address] [email or web address] 06/14/2025 7:45 AM EDT Anesthesia Event [facility] [address] [place] [phone] Mike Oscar MD 55 [facility] [address] [place] [address] [email or web address]. Katy Steiner, LUCIA [address] [place] [phone] [email or web address] 06/14/2025 7:45 AM EDT - 06/14/2025 10:53 AM EDT Surgery [facility] [address] [place] [address] Kobe Delgado MD [address] [address] [email or web address] ARTHROSCOPIC REPAIR ROTATOR CUFF SHOULDER 06/26/2025 10:40 AM EDT Office Visit [facility] Department of Orthopaedic Surgery, Sports Medicine Service 52 [facility] [address] [place] [address] Kobe Delgado MD [address] [address] [email or web address] 07/26/2025 9:00 AM EDT Appointment [facility] Cardio EP Device Monitoring [address] [place] [address] Jenifer Castañeda MD, MS [address] [address] [email or web address] 10/16/2025 11:00 AM EST Appointment [facility] Cardio EP Device Monitoring [address] [place] [address] Jenifer Castañeda MD, MS [address] [address] [email or web address] 10/16/2025 11:30 AM EST Office Visit [facility] Cardiovascular Clinic [address] [place] [address] Jenifer Castañeda MD, MS [address] [address] [email or web address] Scheduled Procedures Name Priority Associated [...] documented as of this encounter Care Teams Pediatric Clinical Dietician Relationship Specialty Start Date End Date Carl Dawn MD [address] [place] [address] PCP - General Internal Medicine 02/04/22 Self-Referred, Patient 01/18/23 documented as of this encounter Additional Source Comments The information contained in this document represents components of the legal health record. It is not the complete legal health record.[facility]
--- OUTSIDE RECORDS SUMMARY | 2025-06-05 08:48 | XMS_ITS | Encounter Summary ---
Author Organization [facility] Address [address] [place] [address] Phone Care Team Providers Care Fish Pitcher Name Role Phone Carl Dawn MD Primary Care Provider Self-Referred, Patient Unavailable Unavailab le Reason for Referral * Outpatient Procedure - Closed Specialty Diagnoses / Procedures Referred By Imelda villanueva Referred To Contact Diagnoses Longstanding persistent atrial fibrillation Procedures Adult Echo TTE Jenifer Castañeda MD, MS Phone: tel: fax: mailto:[email or web address] Referral ID Status Reason Start Date Expiration Date Visits Re quested Visits Authorized [id number] Closed 09/18/2024 12/11/2024 1 1 Encounter Details Date Type Department Care Team (Latest Contact Info) Description 09/18/2024 Transcribe Orders [facility] Cardiovascular Clinic [address] [place] [address] Jenifer Castañeda MD, MS 75 [facility] [address] [place] [address] [email or web address] Longstanding persistent atrial fibrillation (Primary Dx) Social History Tobacco Use Types Packs/Day Years [...] (Latest Contact Info) Description 10/23/2022 Procedure Pass [facility] Cardio EP Device Monitoring [address] [place] [address] 11/03/2022 Procedure Pass [facility] Cardio EP Device Monitoring [address] [place] [address] 01/18/2023 Procedure Pass [facility] Cardio EP Device Monitoring [address] [place] [address] 04/22/2023 Procedure Pass [facility] Cardio EP Device Monitoring [address] [place] [address] 05/09/2023 Procedure Pass [facility] Cardio EP Device Monitoring [address] [place] [address] 07/13/2023 Procedure Pass [facility] Cardio EP Device Monitoring [address] [place] [address] 09/21/2023 Procedure Pass [facility] Cardio EP Device Monitoring [address] [place] [address] 12/07/2023 Procedure Pass [facility] Cardio EP Device Monitoring [address] [place] [address] 02/14/2024 Procedure Pass [facility] Cardio EP Device Monitoring [address] [place] [address] 06/20/2024 Procedure Pass [facility] Cardio EP Device Monitoring [address] [place] [address] 01/11/2025 Procedure Pass [facility] Cardio EP Device Monitoring [address] [place] [address] 04/12/2025 Procedure Pass [facility] Cardio EP Device Monitoring [address] [place] [address] 04/12/2025 Procedure Pass [facility] Cardio EP Device Monitoring [address] [place] [address] 06/14/2025 Procedure Pass [facility] [address] [place] [address] 06/14/2025 7:45 AM EDT Hospital Encounter [facility] [address] [place] [phone] Kobe Delgado MD [address] [address] [email or web address] 06/14/2025 7:45 AM EDT Anesthesia Event [facility] [address] [place] [phone] Mike Oscar MD [address] [place] [phone] [email or web address] Katy Steiner RN [address] [place] [phone] [email or web address] 06/14/2025 7:45 AM EDT - 06/14/2025 10:53 AM EDT Surgery [facility] [address] [place] [phone] Kobe Delgado MD [address] [place] [address] [email or web address] ARTHROSCOPIC REPAIR ROTATOR CUFF SHOULDER 06/26/2025 10:40 AM EDT Office Visit [facility] Department of Orthopaedic Surgery, Sports Medicine Service 52 [facility], [address] [place] [address] Kobe Delgado MD [address] [place] [address] [email or web address] 07/26/2025 9:00 AM EDT Appointment [facility] Cardio EP Device Monitoring [address] [place] [address] Jenifer Castañeda MD, MS [address] [address] [email or web address] 10/16/2025 11:00 AM EST Appointment [facility] Cardio EP Device Monitoring [address] [place] [address] Jenifer Castañeda MD, MS [address] [address] [email or web address] 10/16/2025 11:30 AM EST Office Visit [facility] Cardiovascular Clinic [address] [place] [address] Jenifer Castañeda MD, MS [address] [address] [email or web address] Scheduled Procedures Name Priority Associated Diagnoses Date/Ti me ARTHROSCOPIC REPAIR ROTATOR CUFF SHOULDER Traumatic complete tear of right rotator cuff, subsequent encounter Axillary nerve palsy 06/14/2025 7:45 AM EDT documented as of this encounter Results * TTE COMPREHENSIVE (10/26/2024 9:42 AM EST) Height 170 cm Weight 92 kg Body Surface Area 2.03 m2 Left Ventricle Internal Diameter End Diastole 48 42 - 58 mm Interventricular Septum Thickness 11 6 - 11 mm Aortic Sinus Diameter 37 <40 mm Left Ventricle Internal Diameter End Systole 27 <40 mm Left Ventricular Posterior Wall Thickness 10 6 - 11 mm Ascending Aorta Diameter 32 <36 mm Raw LV EF% 68 % Left Atrium Dimension Anterior-Posterior 52 15 - 40 mm Systolic BP 126 mmHg Diastolic BP 66 mmHg Relative Wall Thickness 0.42 0.22 - 0.42 Left Ventricular Mass 185.2 g Left Ventricle indexed to BSA 91.2 g/m2 Aortic Valve Sinus Index by BSA 18 mm/m2 Aorta Sinus Index by Height 2.18 cm/m Aorta Sinus CSA index by Height 6.32 cm2/m Ascending Aorta Index 16 mm/m2 Asc Aorta CSA Index by Height 4.73 cm2/m Ascending Aorta Index 16 mm Aortic Sinus Index 18 mm Ascending Aorta Diameter 16 mm Aortic Valve Sinus Index 1 18 20 - 32 mm AO ASC DIAM BSA INDEX 15.76 Left Atrial Volume Index 39 16 - 34 mL/m2 Ejection Fraction 65 50 - 75 % Right Ventricle TAPSE 21 >=17 mm Right Ventricle Pulse Doppler S Wave 11.5 >=9.5 cm/s Left Atrial Volume 80 mL Left Atrial Volume Index by Height 47 mL/m Tricuspid Valve Peak Velocity 2.1 m/s Right Ventricle to Right Atrium Pressure Gradient 18 mmHg Right Ventricle Peak Systolic Pressure (Assuming RAP 10) 28 mmHg MGB CV ECHO TV RVSP (ASSUMING RAP OF 5) 23 mmHg RVSP (Exclusive of RAP) 18 mmHg Anatomical Region Laterality Modality Heart [facility] Narrative 10/26/2024 9:53 AM EST Left Ventricle The left ventricle is normal in size. There is normal wall thickness. There is normal left ventricular systolic function. The LV ejection fraction is 65% (visually estimated). There are no wall motion abnormalities. LV diastolic function was not assessed. Right Ventricle The right ventricle is normal in size. There is a lead (ICD/pacer) present in the right ventricle. There is normal right ventricular systolic function. Left Atrium The left atrium is dilated. The left atrial volume index by BSA is 39 mL/m2. Right Atrium The right atrium is normal in size. There is a lead (ICD/pacer) present in the right atrium. The IVC is normal in size with normal inspiratory collapse. Mitral Valve There is mild mitral valve thickening. There is posterior mitral annular calcification. There is mild mitral regurgitation. Tricuspid Valve The tricuspid valve appears normal. There is trace to mild tricuspid regurgitation. The RV systolic pressure was calculated at 23 mmHg (using TR peak velocity of 2.1 m/s and assuming an RA pressure of 5 mmHg). Aortic Valve The aortic valve is tricuspid. There is mild leaflet thickening without stenosis. There is trace aortic regurgitation. The visualized portions of the thoracic aorta appear normal in size. Pulmonic Valve There is no obvious structural abnormality. There is trace pulmonic regurgitation. Pericardium There is no pericardial effusion. General Findings The image quality was fair (3). Comparison Findings There are no prior [facility] studies for comparison. Jenifer Castañeda MD, MS CV ECHO ORDERABLES Final Re sult documented in this encounter Visit Diagnoses Diagnosis Longstanding persistent atrial fibrillation- Primary Longstanding persistent atrial fibrillation Traumatic complete tear of right rotator cuff, subsequent encounter Axillary nerve palsy documented in this encounter Additional Health Concerns Assessment Noted Time PHQ-2 Depression Total Score: 0 05/12/20 22 11:03 AM EDT documented as of this encounter Care Teams Fish Pitcher Relationship Specialty Start Date End Date Carl Dawn MD [address] [place] [address] PCP - General Internal Medicine 02/04/22 Self-Referred, Patient 01/18/23 documented as of this encounter Additional Source Comments The information contained in this document represents components of the legal health record. It is not the complete legal health record.[facility]
--- OUTSIDE RECORDS SUMMARY | 2025-06-05 08:48 | XMS_ITS | Encounter Summary ---
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 Name Role Phone Carl Dawn MD Primary Care Provider Self-Referred, Patient Unavailable Unavailab le Encounter Details Date Type Department Care Team (Latest Contact Info) Description 07/05/2022 Transcribe Orders [facility] [address] [place] [address] Evelin Lei [address] [place] [address] [email or web address] Longstanding persistent atrial fibrillation (Primary Dx) Social [...] Contact Info) Description 10/23/2022 Procedure Pass [facility] Cardio EP Device Monitoring [address] [place], [place] [id number] 11/03/2022 Procedure Pass [facility] Cardio EP Device Monitoring [address] [place] [address] 01/18/2023 Procedure Pass [facility] Cardio EP Device Monitoring [address] [place] [address] 04/22/2023 Procedure Pass [facility] Cardio EP Device Monitoring [address] [place] [address] 05/09/2023 Procedure Pass [facility] Cardio EP Device Monitoring [address] [place] [address] 07/13/2023 Procedure Pass [facility] Cardio EP Device Monitoring [address] [place] [address] 09/21/2023 Procedure Pass [facility] Cardio EP Device Monitoring [address] [place] [address] 12/07/2023 Procedure Pass [facility] Cardio EP Device Monitoring [address] [place] [address] 02/14/2024 Procedure Pass [facility] Cardio EP Device Monitoring [address] [place] [address] 06/20/2024 Procedure Pass [facility] Cardio EP Device Monitoring [address] [place] [address] 01/11/2025 Procedure Pass [facility] Cardio EP Device Monitoring [address] [place] [address] 04/12/2025 Procedure Pass [facility] Cardio EP Device Monitoring [address] [place] [address] 04/12/2025 Procedure Pass [facility] Cardio EP Device Monitoring [address] [place] [address] 06/14/2025 Procedure Pass [facility] PERIOPER[facility]IVE DEPT [address] [place] [phone] 06/14/2025 7:45 AM EDT Hospital Encounter [facility] DEPT [address] [place] [address] Kobe Delgado MD [address] [place] [phone] [email or web address] 06/14/2025 7:45 AM EDT Anesthesia Event [facility]PT [address] [place] [address] Mike Oscar MD [address] [place] [address] [place] [phone] [email or web address] [email or web address] Steiner, LUCIA [address] [place] [address] [email or web address] 06/14/2025 7:45 AM EDT - 06/14/2025 10:53 AM EDT Surgery [facility] PERIOPER[facility]IVE DEPT [address] [place] [address] Kobe Delgado MD [address] [place] [phone] [email or web address] REPAIR ROTATOR CUFF SHOULDER 06/26/2025 10:40 AM EDT Office Visit [facility] Department of Orthopaedic Surgery, Sports Medicine Service [address] [place] [address], [address] [place] [address] Kobe Delgado MD [address] [place] [phone] [email or web address] 07/26/2025 9:00 AM EDT Appointment [facility] Cardio EP Device Monitoring [address] [place] [address] Jenifer Castañeda MD, MS [address] [address] [email or web address] 10/16/2025 11:00 AM EST Appointment [facility] Cardio EP Device Monitoring [address] [place] [address] Jenifer Castañeda MD, MS [address] [address] [email or web address] 10/16/2025 11:30 AM EST Office Visit [facility] [address] [place] [address] Jenifer Castañeda MD, MS [address] [phone] [email or web address] Scheduled Orders Name Type Priority Associated Diagnoses Orde r Schedule EP Device Check / Follow Up Cardiac Monitors Routine Longstanding persistent atrial fibrillation Other for 60 Occurrences starting 07/05/2022 until 10/02/2026, 10 completed Scheduled Procedures Name Priority Associated Diagnoses Date/Ti me ARTHROSCOPIC REPAIR ROTATOR CUFF SHOULDER Traumatic complete tear of right rotator cuff, subsequent encounter Axillary nerve palsy 06/14/2025 7:45 AM EDT documented as of this encounter Results * DEVICE CHECK: PPM IN-HOME INTERROGATION (04/26/2025 7:17 AM EDT) Date Time Interrogation Session [id number] [facility] Implantable Pulse Generator Remediation Bioanalytics Consultant Medtronic [facility] Implantable Pulse Generator Model [id number] Angle Quad TWISTING PRESS OPERATOR-P [facility] Implantable Pulse Generator Serial Number [id number] [facility] Type Interrogation Session Remote Scheduled [facility] Clinic Name Cardiac Device Clinic [facility] Implantable Pulse Generator Type Cardiac Resynchronization Therapy - Pacemaker [facility] Generator Implant Date [id number] [facility] Nicolás Setting Mode (NBG Code) VVIR [facility] Nicolás Setting Lower Rate Limit 60 {beats} /min [facility] Nicolás Setting Maximum Sensor Rate 130 {beats} /min [facility] Lead Channel Setting Sensing Polarity Bipolar [facility] Lead Channel Setting Sensing Anode Location Right Atrium [facility] Lead Channel Setting Sensing Anode Terminal Ring [facility] Lead Channel Setting Sensing Cathode Location Right Atrium [facility] Lead Channel Setting Sensing Cathode Terminal Tip [facility] Lead Channel Setting Sensing Sensitivity Off [facility] Lead Channel Setting Sensing Polarity Bipolar [facility] Lead Channel Setting Sensing Anode Location Right Ventricle [facility] Lead Channel Setting Sensing Anode Terminal Ring [facility] Lead Channel Setting Sensing Cathode Location Right Ventricle [facility] Lead Channel Setting Sensing Cathode Terminal Tip [facility] Lead Channel Setting Sensing Sensitivity 2.8 mV [facility] Ventricular chambers paced during TWISTING PRESS OPERATOR pacing. BiV [facility] TWISTING PRESS OPERATOR LV-RV Delay 20 ms [facility] Lead Channel Setting Pacing Polarity Bipolar [facility] Lead Channel Setting Pacing Anode Location Right Ventricle [facility] Lead Channel Setting Pacing Anode Terminal Ring [facility] Lead Channel Setting Sensing Cathode Location Right Ventricle [facility] Lead Channel Setting Sensing Cathode Terminal Tip [facility] Lead Channel Setting Pacing Pulse Width 0.4 ms [facility] Lead Channel Setting Pacing Amplitude 2 V [facility] Lead Channel Setting Pacing Capture Mode Adaptive [facility] Lead Channel Setting Pacing Polarity Unipolar [facility] Lead Channel Setting Pacing Anode Terminal Can [facility] Lead Channel Setting Sensing Cathode Location Left Ventricle [facility] Lead Channel Setting Sensing Cathode Terminal Tip [facility] Lead Channel Setting Pacing Pulse Width 0.4 ms [facility] Lead Channel Setting Pacing Amplitude 1.25 V [facility] Lead Channel Setting Pacing Capture Mode Adaptive [facility] Zone Setting Type Category VF [facility] Battery Date Time of Measurements [id number] [facility] Battery Status [place] [facility] Battery FREIGHT ROUTER Trigger 2.595 [facility] Battery Remaining Longevity 112 mo [facility] Battery Voltage 3.01 V [facility] Nicolás Statistic Date Time Start [id number]+0000 [facility] Nicolás Statistic Date Time End [id number]+0000 [facility] AP (%) 0 % [facility] CERTIFIED MEDICAL AIDE (%) 98.38 % [facility] TWISTING PRESS OPERATOR Statistic LV Percent Paced 98.35 % [facility] AP/CERTIFIED MEDICAL AIDE % 0 % [facility] /CERTIFIED MEDICAL AIDE % 98.38 % [facility] AP/VS % 0 % [facility] /VS % 1.62 % [facility] TWISTING PRESS OPERATOR Statistic Date Time Start 23649742686687+0000 [facility] TWISTING PRESS OPERATOR Statistic Date Time End 03973520158330+0000 [facility] TWISTING PRESS OPERATOR Statistic TWISTING PRESS OPERATOR Percent Paced 98.35 % [facility] Therapy Statistic Recent Date Time Start 79546001645899+0000 [facility] Therapy Statistic Recent Date Time End 85834181411142+0000 [facility] Therapy Statistic Total Date Time Start 94211720412767+0000 [facility] Therapy Statistic Total Date Time End 46899019612229+0000 [facility] Episode Statistic Recent Count [...] HEALTHCARE Episode Statistic Recent Date Time Start 04194929731191+0000 [facility] Episode Statistic Recent Date Time End 74009949707636+0000 [facility] Episode Statistic Recent Date Time Start 47636367754282+0000 [facility] Episode Statistic Recent Date Time End 49548698864088+0000 [facility] Episode Statistic Recent Date Time Start 87376910324477+0000 [facility] Episode Statistic Recent Date Time End 47576314856343+0000 [facility] Episode Statistic Recent Date Time Start 03397665974940+0000 [facility] Episode Statistic Recent Date Time End 55269229109895+0000 [facility] Episode Statistic Recent Date Time Start 13095961783896+0000 [facility] Episode Statistic Recent Date Time End 35381272632179+0000 [facility] Episode Statistic Total Count [...] HEALTHCARE Episode Statistic Total Date Time Start 25417538866211+0000 [facility] Episode Statistic Total Date Time End 29593464063166+0000 [facility] Episode Statistic Total Date Time Start 07518586191129+0000 [facility] Episode Statistic Total Date Time End 83926194930194+0000 [facility] Episode Statistic Total Date Time Start 65825538772577+0000 [facility] Episode Statistic Total Date Time End 55791827687637+0000 [facility] Episode Statistic Total Date Time Start 09187637096092+0000 [facility] Episode Statistic Total Date Time End 73190154559552+0000 [facility] Episode Statistic Total Date Time Start 63167854625951+0000 [facility] Episode Statistic Total Date Time End 98610278794366+0000 [facility] Episode Identifier 6 [facility] Episode Type Category VT [facility] Episode Date Time 98520531479074+0000 [facility] Episode Duration 3 s [facility] Episode Identifier 841 [facility] Episode Type Category VSE [facility] Episode Date Time 59321225578648+0000 [facility] Episode Duration 9 s [facility] Episode Identifier 840 [facility] Episode Type Category VSE [facility] Episode Date Time 90257325921250+0000 [facility] Episode Duration 7 s [facility] Episode Identifier 839 [facility] Episode Type Category VSE [facility] Episode Date Time 70587057177786+0000 [facility] Episode Duration 7 s [facility] Episode Identifier 838 [facility] Episode Type Category VSE [facility] Episode Date Time 80975755956299+0000 [facility] Episode Duration 8 s [facility] Episode Identifier 837 [facility] Episode Type Category VSE [facility] Episode Date Time 05866791489499+0000 [facility] Episode Duration 8 s [facility] Episode Identifier 836 [facility] Episode Type Category VSE [facility] Episode Date Time 15782972361583+0000 [facility] Episode Duration 7 s [facility] Episode Identifier 835 [facility] Episode Type Category VSE [facility] Episode Date Time 53456287637068+0000 [facility] Episode Duration 7 s [facility] 04/25/2025 11:0 1 PM EDT Narrative [facility] - 05/04/2025 4:59 PM EDT A remote CIED transmission was received and reviewed on the following patient: Patient Name Chip Perez Summary Pacemaker Interrogation. All available lead measurements are stable. Events since last evaluation show (0) detections. Estimated battery longevity ~ 9.4 years. CERTIFIED MEDICAL AIDE 98% Recheck in 3 months. us Jenifer Castañeda MD, MS CV CARDIAC SERVICES ORDERAB LES Final Result [facility] [address] [place] [address] * DEVICE CHECK: PPM IN-HOME INTERROGATION (01/25/2025 10:52 AM EDT) Date Time Interrogation Session [id number] [facility] Implantable Pulse Generator Remediation Bioanalytics Consultant Medtronic [facility] Implantable Pulse Generator Model [id number] Angle Quad TWISTING PRESS OPERATOR-P [facility] Implantable Pulse Generator Serial Number [id number] [facility] Type Interrogation Session Remote Scheduled [facility] Clinic Name Cardiac Device Clinic [facility] Implantable Pulse Generator Type Cardiac Resynchronization Therapy - Pacemaker [facility] Generator Implant Date [id number] [facility] Nicolás Setting Mode (NBG Code) VVIR [facility] Nicolás Setting Lower Rate Limit 60 {beats} /min [facility] Nicolás Setting Maximum Sensor Rate 130 {beats} /min [facility] Lead Channel Setting Sensing Polarity Bipolar [facility] Lead Channel Setting Sensing Anode Location Right Atrium [facility] Lead Channel Setting Sensing Anode Terminal Ring [facility] Lead Channel Setting Sensing Cathode Location Right Atrium [facility] Lead Channel Setting Sensing Cathode Terminal Tip [facility] Lead Channel Setting Sensing Sensitivity Off [facility] Lead Channel Setting Sensing Polarity Bipolar [facility] Lead Channel Setting Sensing Anode Location Right Ventricle [facility] Lead Channel Setting Sensing Anode Terminal Ring [facility] Lead Channel Setting Sensing Cathode Location Right Ventricle [facility] Lead Channel Setting Sensing Cathode Terminal Tip [facility] Lead Channel Setting Sensing Sensitivity 2.8 mV [facility] Ventricular chambers paced during TWISTING PRESS OPERATOR pacing. BiV [facility] TWISTING PRESS OPERATOR LV-RV Delay 20 ms [facility] Lead Channel Setting Pacing Polarity Bipolar [facility] Lead Channel Setting Pacing Anode Location Right Ventricle [facility] Lead Channel Setting Pacing Anode Terminal Ring [facility] Lead Channel Setting Sensing Cathode Location Right Ventricle [facility] Lead Channel Setting Sensing Cathode Terminal Tip [facility] Lead Channel Setting Pacing Pulse Width 0.4 ms [facility] Lead Channel Setting Pacing Amplitude 2 V [facility] Lead Channel Setting Pacing Capture Mode Adaptive [facility] Lead Channel Setting Pacing Polarity Unipolar [facility] Lead Channel Setting Pacing Anode Terminal Can [facility] Lead Channel Setting Sensing Cathode Location Left Ventricle [facility] Lead Channel Setting Sensing Cathode Terminal Tip [facility] Lead Channel Setting Pacing Pulse Width 0.4 ms [facility] Lead Channel Setting Pacing Amplitude 1.25 V [facility] Lead Channel Setting Pacing Capture Mode Adaptive [facility] Zone Setting Type Category VF [facility] Zone Setting Vendor Type Category V [...] 361 ohm [facility] RV Impedance 437 ohm [facility] RV Impedance 361 ohm [facility] R Wave 14.75 mV [facility] R Wave 14.75 mV [facility] RV Threshold 0.75 V [facility] RV Threshold PW 0.4 ms [facility] LV Impedance 570 ohm [facility] LV Impedance 703 ohm [facility] LV Impedance 703 ohm [facility] LV Impedance 494 ohm [facility] LV Impedance 1,159 ohm [facility] LV Impedance 1,140 ohm [facility] LV Impedance 969 ohm [facility] LV Impedance 817 ohm [facility] LV Impedance 1,083 ohm [facility] LV Impedance 1,083 ohm [facility] LV Threshold 0.75 V [facility] LV Threshold PW 0.4 ms [facility] Battery Date Time of Measurements [facility] Battery Status [place] [facility] Battery FREIGHT ROUTER Trigger 2.595 [facility] Battery Remaining Longevity 114 mo [facility] Battery Voltage 3.01 V [facility] Nicolás Statistic Date Time Start + [facility] Nicolás Statistic Date Time End + [facility] AP (%) 0 % [facility] CERTIFIED MEDICAL AIDE (%) 99.07 % [facility] TWISTING PRESS OPERATOR Statistic LV Percent Paced 99.04 % [facility] AP/CERTIFIED MEDICAL AIDE % 0 % [facility] /CERTIFIED MEDICAL AIDE % 99.07 % [facility] AP/VS % 0 % [facility] /VS % 0.93 % [facility] TWISTING PRESS OPERATOR Statistic Date Time Start + [facility] TWISTING PRESS OPERATOR Statistic Date Time End + [facility] TWISTING PRESS OPERATOR Statistic TWISTING PRESS OPERATOR Percent Paced 99.04 % [facility] Therapy Statistic Recent Date Time Start + [facility] Therapy Statistic Recent Date Time End [id number]+0000 [facility] Therapy Statistic Total Date Time Start 01299111638860+0000 [facility] Therapy Statistic Total Date Time End 47514645917078+0000 [facility] Episode Statistic Recent Count 0 [facility] Episode Statistic Type Category AT/AF [facility] Episode Statistic Recent Count 0 [facility] Episode Statistic Type Category Patient Activated [facility] Episode Statistic Recent Count 0 [facility] Episode Statistic Type Category SVT [facility] Episode Statistic Recent Count 1 [facility] Episode Statistic Type Category VT [facility] Episode Statistic Recent Count 0 [facility] Episode Statistic Type Category VT [facility] Episode Statistic Recent Date Time Start 54335080988410+0000 [facility] Episode Statistic Recent Date Time End 51401306725243+0000 [facility] Episode Statistic Recent Date Time Start 79223814779911+0000 [facility] Episode Statistic Recent Date Time End 28214559279721+0000 [facility] Episode Statistic Recent Date Time Start 14411008909049+0000 [facility] Episode Statistic Recent Date Time End 77725764873001+0000 [facility] Episode Statistic Recent Date Time Start 05994714917196+0000 [facility] Episode Statistic Recent Date Time End 98867644735029+0000 [facility] Episode Statistic Recent Date Time Start 24710707798594+0000 [facility] Episode Statistic Recent Date Time End 68429107762717+0000 [facility] Episode Statistic Total Count 0 [facility] Episode Statistic Type Category AT/AF [facility] Episode Statistic Total Count 0 [facility] Episode Statistic Type Category Patient Activated [facility] Episode Statistic Total Count 0 [facility] Episode Statistic Type Category SVT [facility] Episode Statistic Total Count 4 [facility] Episode Statistic Type Category VT [facility] Episode Statistic Total Count 1 [facility] Episode Statistic Type Category VT [facility] Episode Statistic Total Date Time Start 47072932576260+0000 [facility] Episode Statistic Total Date Time End 82428471721862+0000 [facility] Episode Statistic Total Date Time Start 32333717719234+0000 [facility] Episode Statistic Total Date Time End 32443257934035+0000 [facility] Episode Statistic Total Date Time Start 72603781894444+0000 [facility] Episode Statistic Total Date Time End 84131748822938+0000 [facility] Episode Statistic Total Date Time Start 01582178875147+0000 [facility] Episode Statistic Total Date Time End 57609986447391+0000 [facility] Episode Statistic Total Date Time Start 60794202746983+0000 [facility] Episode Statistic Total Date Time End 41605840907750+0000 [facility] Episode Identifier 5 [facility] Episode Type Category VT [facility] Episode Date Time [id number]+0000 [facility] Episode Duration 2 s [facility] Episode Identifier 800 [facility] Episode Type Category VSE [facility] Episode Date Time [id number]+0000 [facility] Episode Duration 6 s [facility] Episode Identifier 799 [facility] Episode Type Category VSE [facility] Episode Date Time [id number]+0000 [facility] Episode Duration 10 s [facility] Episode Identifier 798 [facility] Episode Type Category VSE [facility] Episode Date Time [id number]+0000 [facility] Episode Duration 6 s [facility] Episode Identifier 797 [facility] Episode Type Category VSE [facility] Episode Date Time 55451131427772+0000 [facility] Episode Duration 7 s [facility] Episode Identifier 796 [facility] Episode Type Category VSE [facility] Episode Date Time [id number]+0000 [facility] Episode Duration 6 s [facility] Episode Identifier 795 [facility] Episode Type Category VSE [facility] Episode Date Time [id number]+0000 [facility] Episode Duration 6 s [facility] Episode Identifier 794 [facility] Episode Type Category VSE [facility] Episode Date Time 82029774975531+0000 [facility] Episode Duration 5 s [facility] 01/25/2025 10:5 7 AM EDT Narrative [facility] - 01/29/2025 3:53 PM EDT A remote CIED transmission was received and reviewed on the following patient: Patient Name Chip Perez Summary Pacemaker Interrogation. All available lead measurements are stable. Events since last evaluation shows (1) tachy detection rate 171bpm appears to be AF w/RVR secs in duration pt is on OAC. Estimated battery longevity ~ 9.5 years. AP 0% CERTIFIED MEDICAL AIDE 99% Recheck in 3 months. us Jenifer Castañeda MD, MS CV CARDIAC SERVICES ORDERAB LES Final Result [facility] [address] [place] [address] * DEVICE CHECK: PPM IN-HOME INTERROGATION (07/10/2024 9:10 AM EDT) Date Time Interrogation Session [id number] [facility] Implantable Pulse Generator Remediation Bioanalytics Consultant [employer] [facility] Implantable Pulse Generator Model [id number] Angle Quad TWISTING PRESS OPERATOR-P [facility] Implantable Pulse Generator Serial Number [id number] [facility] Type Interrogation Session Remote Patient Initiated [facility] Clinic Name Cardiac Device Clinic [facility] Implantable Pulse Generator Type Cardiac Resynchronization Therapy - Pacemaker [facility] Generator Implant Date [id number] [facility] Nicolás Setting Mode (NBG Code) VVIR [facility] Nicolás Setting Lower Rate Limit 60 {beats} /min [facility] Nicolás Setting Maximum Sensor Rate 130 {beats} /min [facility] Lead Channel Setting Sensing Polarity Bipolar [facility] Lead Channel Setting Sensing Anode Location Right Atrium [facility] Lead Channel Setting Sensing Anode Terminal Ring [facility] Lead Channel Setting Sensing Cathode Location Right Atrium [facility] Lead Channel Setting Sensing Cathode Terminal Tip [facility] Lead Channel Setting Sensing Sensitivity Off [facility] Lead Channel Setting Sensing Polarity Bipolar [facility] Lead Channel Setting Sensing Anode Location Right Ventricle [facility] Lead Channel Setting Sensing Anode Terminal Ring [facility] Lead Channel Setting Sensing Cathode Location Right Ventricle [facility] Lead Channel Setting Sensing Cathode Terminal Tip [facility] Lead Channel Setting Sensing Sensitivity 2.8 mV [facility] Ventricular chambers paced during TWISTING PRESS OPERATOR pacing. BiV [facility] TWISTING PRESS OPERATOR LV-RV Delay 20 ms [facility] Lead Channel Setting Pacing Polarity Bipolar [facility] Lead Channel Setting Pacing Anode Location Right Ventricle [facility] Lead Channel Setting Pacing Anode Terminal Ring [facility] Lead Channel Setting Sensing Cathode Location Right Ventricle [facility] Lead Channel Setting Sensing Cathode Terminal Tip [facility] Lead Channel Setting Pacing Pulse Width 0.4 ms [facility] Lead Channel Setting Pacing Amplitude 2 V [facility] Lead Channel Setting Pacing Capture Mode Adaptive [facility] Lead Channel Setting Pacing Polarity Unipolar [facility] Lead Channel Setting Pacing Anode Terminal Can [facility] Lead Channel Setting Sensing Cathode Location Left Ventricle [facility] Lead Channel Setting Sensing Cathode Terminal Tip [facility] Lead Channel Setting Pacing Pulse Width 0.4 ms [facility] Lead Channel Setting Pacing Amplitude 1.25 V [facility] Lead Channel Setting Pacing Capture Mode Adaptive [facility] Zone Setting Type Category VF [facility] Zone Setting Vendor Type Category V High Rate [facility] Zone Setting Type Category VT [facility] Zone Setting Vendor Type Category FastVT [facility] Zone Setting Type Category [place] [facility] [...] Type Category AT/AF [facility] Atrial Impedance 418 ohm [facility] Atrial Imp[facility]ance 361 ohm [facility] RV Impedance 437 ohm [facility] RV Impedance 361 ohm [facility] R Wave 18.125 mV [facility] R Wave 18.125 mV [facility] RV Threshold 0.75 V [facility] RV Threshold PW 0.4 ms [facility] LV Impedance 589 ohm [facility] LV Impedance 684 ohm [facility] LV Impedance 684 ohm [facility] LV Impedance 475 ohm [facility] LV Impedance 1,140 ohm [facility] LV Impedance 1,121 ohm [facility] LV Impedance 912 ohm [facility] LV Impedance 779 ohm [facility] LV Impedance 1,045 ohm [facility] LV Impedance 1,026 ohm [facility] LV Threshold 0.75 V [facility] LV Threshold PW 0.4 ms [facility] Battery Date Time of Measurements [facility] Battery Status [place] [facility] Battery FREIGHT ROUTER Trigger 2.595 [facility] Battery Remaining Longevity 120 mo [facility] Battery Voltage 3.02 V [facility] Nicolás Statistic Date Time Start + [facility] Nicolás Statistic Date Time End + [facility] AP (%) 0 % [facility] CERTIFIED MEDICAL AIDE (%) 98.96 % [facility] TWISTING PRESS OPERATOR Statistic LV Percent Paced 98.93 % [facility] AP/CERTIFIED MEDICAL AIDE % 0 % [facility] /CERTIFIED MEDICAL AIDE % 98.96 % [facility] AP/VS % 0 % [facility] /VS % 1.04 % [facility] TWISTING PRESS OPERATOR Statistic Date Time Start +0000 [facility] TWISTING PRESS OPERATOR Statistic Date Time End + [facility] TWISTING PRESS OPERATOR Statistic TWISTING PRESS OPERATOR Percent Paced 98.93 % [facility] Therapy Statistic Recent Date Time Start + [facility] Therapy Statistic Recent Date Time End + [facility] Therapy Statistic Total Date Time Start [id number] [facility] Therapy Statistic Total Date Time End +0000 [facility] Episode Statistic Recent Count 0 [facility] Episode Statistic Type Category AT/AF [facility] Episode Statistic Recent Count 0 [facility] Episode Statistic Type Category Patient Activated [facility] Episode Statistic Recent Count 0 [facility] Episode Statistic Type Category SVT [facility] Episode Statistic Recent Count 1 [facility] Episode Statistic Type Category [place] [facility] Episode Stat[facility] Recent Count 0 [facility] Episode Statistic Type Category [place] [facility] Episode Statistic Recent Date Time Start +0000 [facility] Episode Statistic Recent Date Time End +0000 [facility] Episode Statistic Recent Date Time Start +0000 [facility] Episode Statistic Recent Date Time End +0000 [facility] Episode Statistic Recent Date Time Start +0000 [facility] Episode Statistic Recent Date Time End +0000 [facility] Episode Statistic Recent Date Time Start +0000 [facility] Episode Statistic Recent Date Time End +0000 [facility] Episode Statistic Recent Date Time Start +0000 [facility] Episode Statistic Recent Date Time End +0000 [facility] Episode Statistic Total Count 0 [facility] Episode Statistic Type Category AT/AF [facility] Episode Statistic Total Count 0 [facility] Episode Statistic Type Category Patient Activated [facility] Episode Stat[facility] Total Count 0 [facility] Episode Statistic Type Category SVT [facility] Episode Statistic Total Count 2 [facility] Episode Statistic Type Category [place] [facility] Episode Statistic Total Count 1 [facility] Episode Statistic Type Category VT [facility] Episode Statistic Total Date Time Start +0000 [facility] Episode Statistic Total Date Time End +0000 [facility] Episode Statistic Total Date Time Start +0000 [facility] Episode Statistic Total Date Time End +0000 [facility] Episode Statistic Total Date Time Start +0000 [facility] Episode Statistic Total Date Time End +0000 [facility] Episode Statistic Total Date Time Start +0000 [facility] Episode Statistic Total Date Time End +0000 [facility] Episode Statistic Total Date Time Start +0000 [facility] Episode Statistic Total Date Time End +0000 [facility] Episode Identifier 3 [facility] Episode Type Category [place] [facility] Episode Date Time [id number] [facility] Episode Duration 1 s [facility] Episode Identifier 648 [facility] Episode Type Category VSE [facility] Episode Date Time [id number] [facility] Episode Duration 10 s [facility] Episode Identifier 647 [facility] Episode Type Category VSE [facility] Episode Date Time [id number] [facility] Episode Duration 7 s [facility] Episode Identifier 646 [facility] Episode Type Category VSE [facility] Episode Date Time [id number] [facility] Episode Duration 8 s [facility] Episode Identifier 645 [facility] Episode Type Category VSE [facility] Episode Date Time [id number] [facility] Episode Duration 11 s [facility] Episode Identifier 644 [facility] Episode Type Category VSE [facility] Episode Date Time [id number] [facility] Episode Duration 7 s [facility] Episode Identifier 643 [facility] Episode Type Category VSE [facility] Episode Date Time [id number] [facility] Episode Duration 6 s [facility] Episode Identifier 642 [facility] Episode Type Category VSE [facility] Episode [facility] Time [id number] [facility] Episode Duration 6 s [facility] 07/09/2024 4:49 PM EDT Narrative [facility] - 07/10/2024 12:26 PM EDT A remote CIED transmission was received and reviewed on the following patient: Patient Name Chip Perez Summary Pacemaker Interrogation. All available lead measurements are stable. Events since last evaluation shows (1) tachy detection appears atrially driven vs true NSVT rate 164bpm <4secs.pt is on Site Lock Estimated battery longevity ~ 10 years. AP 0% CERTIFIED MEDICAL AIDE 99% Recheck in 3 months. us Jenifer Castañeda MD, MS CV CARDIAC SERVICES ORDERAB LES Final Result [facility] [address] [place] [address] * DEVICE CHECK: PPM IN-HOME INTERROGATION (04/04/2024 7:44 AM EDT) Date Time Interrogation Session [id number] [facility] Implantable Pulse Generator Remediation Bioanalytics Consultant Medtronic [facility] Implantable Pulse Generator Model [id number] Angle Quad TWISTING PRESS OPERATOR-P [facility] Implantable Pulse Generator Serial Number [id number] [facility] Type Interrogation Session Remote Scheduled [facility] Clinic Name Cardiac Device Clinic [facility] Implantable Pulse Generator Type Cardiac Resynchronization Therapy - Pacemaker [facility] Generator Implant Date [id number] [facility] Nicolás Setting Mode (NBG Code) VVIR [facility] Nicolás Setting Lower Rate Limit 60 {beats} /min [facility] Nicolás Setting Maximum Sensor Rate 130 {beats} /min [facility] Lead Channel Setting Sensing Polarity Bipolar [facility] Lead Channel Setting Sensing Anode Location Right Atrium [facility] Lead Channel Setting Sensing Anode Terminal Ring [facility] Lead Channel Setting Sensing Cathode Location Right Atrium [facility] Lead Channel Setting Sensing Cathode Terminal Tip [facility] Lead Channel Setting Sensing Sensitivity Off [facility] Lead Channel Setting Sensing Polarity Bipolar [facility] Lead Channel Setting Sensing Anode Location Right Ventricle [facility] Lead Channel Setting Sensing Anode Terminal Ring [facility] Lead Channel Setting Sensing Cathode Location Right Ventricle [facility] Lead Channel Setting Sensing Cathode Terminal Tip [facility] Lead Channel Setting Sensing Sensitivity 2.8 mV [facility] Ventricular chambers paced during TWISTING PRESS OPERATOR pacing. BiV [facility] TWISTING PRESS OPERATOR LV-RV Delay 20 ms [facility] Lead Channel Setting Pacing Polarity Bipolar [facility] Lead Channel Setting Pacing Anode Location Right Ventricle [facility] Lead Channel Setting Pacing Anode Terminal Ring [facility] Lead Channel Setting Sensing Cathode Location Right Ventricle [facility] Lead Channel Setting Sensing Cathode Terminal Tip [facility] Lead Channel Setting Pacing Pulse Width 0.4 ms [facility] Lead Channel Setting Pacing Amplitude 2 V [facility] Lead Channel Setting Pacing Capture Mode Adaptive [facility] Lead Channel Setting Pacing Polarity Unipolar [facility] Lead Channel Setting Pacing Anode Terminal Can [facility] Lead Channel Setting Sensing Cathode Location Left Ventricle [facility] Lead Channel Setting Sensing Cathode Terminal Tip [facility] Lead Channel Setting Pacing Pulse Width 0.4 ms [facility] Lead Channel Setting Pacing Amplitude 1.25 V [facility] Lead Channel Setting Pacing Capture Mode Adaptive [facility] Zone Setting Type Category VF [facility] Zone Setting Vendor Type Category V High Rate [facility] Zone Setting Type Category [place] [facility] Zone Setting Vendor Type Category FastVT [facility] Zone Setting Type Category VT [facility] Zone Setting Vendor Type Category VT [facility] Zone Setting Type Category VT [facility] Zone Setting Vendor Type Category MonVT [facility] Zone Setting Status Monitor [facility] Zone Setting Detection Interval 400 ms [facility] Zone Setting Type Category ATRIAL_FIBRILLATION [facility] Zone Setting Vendor Type Category FastATAF [facility] Zone Setting Type Category AT/AF [facility] Atrial Impedance 418 ohm [facility] Atrial Impedance 361 ohm [facility] RV Impedance 494 ohm [facility] RV Impedance 418 ohm [facility] R Wave 19.25 mV [facility] R Wave 19.25 mV [facility] RV Threshold 0.625 V [facility] RV Threshold PW 0.4 ms [facility] LV Impedance 646 ohm [facility] LV Impedance 779 ohm [facility] LV Impedance 779 ohm [facility] LV Impedance 513 ohm [facility] LV Impedance 1,254 ohm [facility] LV Impedance 1,292 ohm [facility] LV Impedance 1,007 ohm [facility] LV Impedance 874 ohm [facility] LV Impedance 1,121 ohm [facility] LV Impedance 1,140 ohm [facility] LV Threshold 0.625 V [facility] LV Threshold PW 0.4 ms [facility] Battery Date Time of Measurements [facility] Battery Status [place] [facility] Battery FREIGHT ROUTER Trigger 2.595 [facility] Battery Remaining Longevity 126 mo [facility] Battery Voltage 3.02 V [facility] Nicolás Statistic Date Time Start +0000 [facility] Nicolás Statistic Date Time End + [facility] AP (%) 0 % [facility] CERTIFIED MEDICAL AIDE (%) 99.48 % [facility] TWISTING PRESS OPERATOR Statistic LV Percent Paced 99.45 % [facility] AP/CERTIFIED MEDICAL AIDE % 0 % [facility] /CERTIFIED MEDICAL AIDE % 99.48 % [facility] AP/VS % 0 % [facility] /VS % 0.52 % [facility] TWISTING PRESS OPERATOR Statistic Date Time Start [id number] [facility] TWISTING PRESS OPERATOR Statistic Date Time End + [facility] TWISTING PRESS OPERATOR Statistic TWISTING PRESS OPERATOR Percent Paced 99.45 % [facility] Therapy Statistic Recent Date Time Start +0000 [facility] Therapy Statistic Recent Date Time End + [facility] Therapy Statistic Total Date Time Start [id number] [facility] Therapy Statistic Total Date Time End + [facility] Episode Statistic Recent Count [...] HEALTHCARE Episode Statistic Recent Date Time Start +0000 [facility] Episode Statistic Recent Date Time End [id number] [facility] Episode Statistic Recent Date Time Start [id number] [facility] Episode Statistic Recent Date Time End [id number]+0000 [facility] Episode Statistic Recent Date Time Start [id number] [facility] Episode Statistic Recent Date Time End [id number] [facility] Episode Statistic Recent Date Time Start [id number] [facility] Episode Statistic Recent Date Time End [id number] [facility] Episode Statistic Recent Date Time Start +0000 [facility] Episode Statistic Recent Date Time End [id number]+0000 [facility] Episode Statistic Total Count 0 [facility] Episode Statistic Type Category AT/AF [facility] Episode Statistic Total Count 0 [facility] Episode Statistic Type Category Patient Activated [facility] Episode Statistic Total Count 0 [facility] Episode Statistic Type Category SVT [facility] Episode Statistic Total Count 1 [facility] Episode Statistic Type Category [place] [facility] Episode Statistic Total Count 1 [facility] Episode Statistic Type Category [place] [facility] Episode Statistic Total Date Time Start +0000 [facility] Episode Statistic Total Date Time End [id number]+0000 [facility] Episode Statistic Total Date Time Start [id number]+0000 [facility] Episode Statistic Total Date Time End [id number] [facility] Episode Statistic Total Date Time Start [id number]+0000 [facility] Episode Statistic Total Date Time End [id number]+0000 [facility] Episode Statistic Total Date Time Start [id number]+0000 [facility] Episode Statistic Total Date Time End [id number]+0000 [facility] Episode Statistic Total Date Time Start [id number]+0000 [facility] Episode Statistic Total Date Time End [id number]+0000 [facility] Episode Identifier 567 [facility] Episode Type Category VSE [facility] Episode Date Time [id number] [facility] Episode Duration 6 s [facility] Episode Identifier 566 [facility] Episode Type Category VSE [facility] Episode Date Time [id number] [facility] Episode Duration 6 s [facility] Episode Identifier 565 [facility] Episode Type Category VSE [facility] Episode Date Time [id number] [facility] Episode Duration 5 s [facility] Episode Identifier 564 [facility] Episode Type Category VSE [facility] Episode Date Time [id number] [facility] Episode Duration 7 s [facility] Episode Identifier 563 [facility] Episode Type Category VSE [facility] Episode Date Time [id number] [facility] Episode Duration 7 s [facility] Episode Identifier 562 [facility] Episode Type Category VSE [facility] Episode Date Time [id number] [facility] Episode Duration 7 s [facility] Episode Identifier 561 [facility] Episode Type Category VSE [facility] Episode Date Time [id number] [facility] Episode Duration 8 s [facility] 04/04/2024 12:1 4 AM EDT Narrative [facility] - 04/05/2024 10:51 AM EDT A remote CIED transmission was received and reviewed on the following patient: Patient Name Chip Perez Summary Pacemaker Interrogation. All available lead measurements are stable. Events since last evaluation show (0) detections. Estimated battery longevity ~ 10.5 years. AP 0% CERTIFIED MEDICAL AIDE 99.5% Recheck in 3 months. us Jenifer Castañeda MD, MS CV CARDIAC SERVICES ORDERAB LES Final Result [facility] [address] [place] [address] * DEVICE CHECK: PPM IN-HOME INTERROGATION (01/04/2024 3:10 PM EDT) Date Time Interrogation Session [id number] [facility] Implantable Pulse Generator Remediation Bioanalytics Consultant Medtr[employer] [facility] Implantable Pulse Generator Model [id number] Angle Quad TWISTING PRESS OPERATOR-P [facility] Implantable Pulse Generator Serial Number [id number] [facility] Type Interrogation Session Remote Patient Initiated [facility] Clinic Name Cardiac Device Clinic [facility] Implantable Pulse Generator Type Cardiac Resynchronization Therapy - Pacemaker [facility] Generator Implant Date [id number] [facility] Nicolás Setting Mode (NBG Code) VVIR [facility] Nicolás Setting Lower Rate Limit 60 {beats} /min [facility] Nicolás Setting Maximum Sensor Rate 130 {beats} /min [facility] Lead Channel Setting Sensing Polarity Bipolar [facility] Lead Channel Setting Sensing Anode Location Right Atrium [facility] Lead Channel Setting Sensing Anode Terminal Ring [facility] Lead Channel Setting Sensing Cathode Location Right Atrium [facility] Lead Channel Setting Sensing Cathode Terminal Tip [facility] Lead Channel Setting Sensing Sensitivity Off [facility] Lead Channel Setting Sensing Polarity Bipolar [facility] Lead Channel Setting Sensing Anode Location Right Ventricle [facility] Lead Channel Setting Sensing Anode Terminal Ring [facility] Lead Channel Setting Sensing Cathode Location Right Ventricle [facility] Lead Channel Setting Sensing Cathode Terminal Tip [facility] Lead Channel Setting Sensing Sensitivity 2.8 mV [facility] Ventricular chambers paced during TWISTING PRESS OPERATOR pacing. BiV [facility] TWISTING PRESS OPERATOR LV-RV Delay 20 ms [facility] Lead Channel Setting Pacing Polarity Bipolar [facility] Lead Channel Setting Pacing Anode Location Right Ventricle [facility] Lead Channel Setting Pacing Anode Terminal Ring [facility] Lead Channel Setting Sensing Cathode Location Right Ventricle [facility] Lead Channel Setting Sensing Cathode Terminal Tip [facility] Lead Channel Setting Pacing Pulse Width 0.4 ms [facility] Lead Channel Setting Pacing Amplitude 2 V [facility] Lead Channel Setting Pacing Capture Mode Adaptive [facility] Lead Channel Setting Pacing Polarity Unipolar [facility] Lead Channel Setting Pacing Anode Terminal Can [facility] Lead Channel Setting Sensing Cathode Location Left Ventricle [facility] Lead Channel Setting Sensing Cathode Terminal Tip [facility] [facility] Lead Channel Setting Pacing Pulse Width 0.4 ms [facility] Lead Channel Setting Pacing Amplitude 1.25 V [facility] Lead Channel Setting Pacing Capture Mode Adaptive [facility] Zone Setting Type Category VF [facility] Zone Setting Vendor Type Category V High Rate [facility] Zone Setting Type Category VT [facility] Zone Setting Vendor Type Category FastVT [facility] Zone Setting Type Category VT [facility] Zone Setting Vendor Type Category VT [facility] Zone Setting Type Category VT [facility] Zone Setting Vendor Type Category MonVT [facility] Zone Setting Status Monitor [facility] Zone Setting Detection Interval 400 ms [facility] Zone Setting Type Category ATRIAL_FIBRILLATION [facility] Zone Setting Vendor Type Category FastATAF [facility] Zone Setting Type Category AT/AF [facility] Atrial Impedance 418 ohm [facility] Atrial Impedance 361 ohm [facility] RV Impedance 475 ohm [facility] RV Impedance 399 ohm [facility] R Wave 19.25 mV [facility] R Wave 19.25 mV [facility] RV Threshold 0.625 V [facility] RV Threshold PW 0.4 ms [facility] LV Impedance 627 ohm [facility] LV Impedance 741 ohm [facility] LV Impedance 760 ohm [facility] LV Impedance 551 ohm [facility] LV Impedance 1,216 ohm [facility] LV Impedance 1,235 ohm [facility] LV Impedance 1,026 ohm [facility] LV Impedance 817 ohm [facility] LV Impedance 1,159 ohm [facility] LV Impedance 1,178 ohm [facility] LV Threshold 0.625 V [facility] LV Threshold PW 0.4 ms [facility] Battery Date Time of Measurements + [facility] Battery Status [place] [facility] Battery FREIGHT ROUTER Trigger 2.595 [facility] Battery Remaining Longevity 128 mo [facility] Battery Voltage 3.03 V [facility] Nicolás Statistic Date Time Start + [facility] Nicolás Statistic Date Time End + [facility] AP (%) 0 % [facility] CERTIFIED MEDICAL AIDE (%) 98.4 % [facility] TWISTING PRESS OPERATOR Statistic LV Percent Paced 98.36 % [facility] AP/CERTIFIED MEDICAL AIDE % 0 % [facility] /CERTIFIED MEDICAL AIDE % 98.4 % [facility] AP/VS % 0 % [facility] /VS % 1.6 % [facility] TWISTING PRESS OPERATOR Statistic Date Time Start +0000 [facility] TWISTING PRESS OPERATOR Statistic Date Time End + [facility] TWISTING PRESS OPERATOR Statistic TWISTING PRESS OPERATOR Percent Paced 98.36 % [facility] Therapy Statistic Recent Date Time Start + [facility] Therapy Statistic Recent Date Time End + [facility] Therapy Statistic Total Date Time Start [id number] [facility] Therapy Statistic Total Date Time End + [facility] Episode Statistic Recent Count [...] HEALTHCARE Episode Statistic Recent Date Time Start +0000 [facility] Episode Statistic Recent Date Time End + [facility] Episode Statistic Recent Date Time Start +0000 [facility] Episode Statistic Recent Date Time End + [facility] Episode Statistic Recent Date Time Start +0000 [facility] Episode Statistic Recent Date Time End [id number] [facility] Episode Statistic Recent Date Time Start +0000 [facility] Episode Statistic Recent Date Time End [id number] [facility] Episode Statistic Recent Date Time Start [id number] [facility] Episode Statistic Recent Date Time End [id number] [facility] Episode Statistic Total Count 0 [facility] Episode Statistic Type Category AT/AF [facility] Episode Statistic Total Count 0 [facility] Episode Statistic Type Category Patient Activated [facility] Episode [facility]istic Total Count 0 [facility] Episode Statistic Type Category SVT [facility] Episode Statistic Total Count 1 [facility] Episode Statistic Type Category VT [facility] Episode Statistic Total Count 0 [facility] Episode Statistic Type Category VT [facility] Episode Statistic Total Date Time Start [id number] [facility] Episode Statistic Total Date Time End [id number] [facility] Episode Statistic Total Date Time Start [id number] [facility] Episode Statistic Total Date Time End [id number] [facility] Episode Statistic Total Date Time Start [id number] [facility] Episode Statistic Total Date Time End [id number] [facility] Episode Statistic Total Date Time Start [id number] [facility] Episode Statistic Total Date Time End [id number] [facility] Episode Statistic Total Date Time Start [id number]+0000 [facility] Episode Statistic Total Date Time End [id number] [facility] Episode Identifier 541 [facility] Episode Type Category VSE [facility] Episode Date Time [id number] [facility] Episode Duration 7 s [facility] Episode Identifier 540 [facility] Episode Type Category VSE [facility] Episode Date Time [id number] [facility] Episode Duration 6 s [facility] Episode Identifier 539 [facility] Episode Type Category VSE [facility] Episode Date Time [id number] [facility] Episode Duration 6 s [facility] Episode Identifier 538 [facility] Episode Type Category VSE [facility] Episode Date Time [id number] [facility] Episode Duration 9 s [facility] Episode Identifier 537 [facility] Episode Type Category VSE [facility] Episode Date Time [id number] [facility] Episode Duration 5 s [facility] Episode Identifier 536 [facility] Episode Type Category VSE [facility] Episode Date Time [id number] [facility] Episode Duration 8 s PAR [facility] 01/04/2024 1:34 PM EDT Narrative [facility] - 01/10/2024 6:33 AM EDT A remote CIED transmission was received and reviewed on the following patient: Patient Name Chip Perez Summary Pacemaker Interrogation. All available lead measurements are stable. Events since last evaluation show (0) detections. Estimated battery longevity ~ 10.7 years. AP 0% CERTIFIED MEDICAL AIDE 98% Recheck in 3 months. us Jenifer Castañeda MD, MS CV CARDIAC SERVICES ORDERAB LES Final Result [facility] [address] [place] [address] * DEVICE CHECK: PPM IN-PERSON PROGRAMMING MULTIPLE LEAD (09/21/2023 9:39 AM EST) Date Time Interrogation Session [id number] [facility] Implantable Pulse Generator Remediation Bioanalytics Consultant Medtronic [facility] Implantable Pulse Generator Model [id number] Angle Quad TWISTING PRESS OPERATOR-P [facility] Implantable Pulse Generator Serial Number [id number] [facility] Type Interrogation Session In Clinic [facility] Clinic Name Cardiac Device Clinic [facility] Implantable Pulse Generator Type Cardiac Resynchronization Therapy - Pacemaker [facility] Generator Implant Date [id number] [facility] Nicolás Setting Mode (NBG Code) VVIR [facility] Nicolás Setting Lower Rate Limit 60 {beats} /min [facility] Nicolás Setting Maximum Sensor Rate 130 {beats} /min [facility] Lead Channel Setting Sensing Polarity Bipolar [facility] Lead Channel Setting Sensing Anode Location Right Atrium [facility] Lead Channel Setting Sensing Anode Terminal Ring [facility] Lead Channel Setting Sensing Cathode Location Right Atrium [facility] Lead Channel Setting Sensing Cathode Terminal Tip [facility] Lead Channel Setting Sensing Sensitivity Off [facility] Lead Channel Setting Sensing Polarity Bipolar [facility] Lead Channel Setting Sensing Anode Location Right Ventricle [facility] Lead Channel Setting Sensing Anode Terminal Ring [facility] Lead Channel Setting Sensing Cathode Location Right Ventricle [facility] Lead Channel Setting Sensing Cathode Terminal Tip [facility] Lead Channel Setting Sensing Sensitivity 2.8 mV [facility] Ventricular chambers paced during TWISTING PRESS OPERATOR pacing. BiV [facility] TWISTING PRESS OPERATOR LV-RV Delay 20 ms [facility] Lead Channel Setting Pacing Polarity Bipolar [facility] Lead Channel Setting Pacing Anode Location Right Ventricle [facility] Lead Channel Setting Pacing Anode Terminal Ring [facility] Lead Channel Setting Sensing Cathode Location Right Ventricle [facility] Lead Channel Setting Sensing Cathode Terminal Tip [facility] Lead Channel Setting Pacing Pulse Width 0.4 ms [facility] Lead Channel Setting Pacing Amplitude 2 V [facility] Lead Channel Setting Pacing Capture Mode Adaptive [facility] Lead Channel Setting Pacing Polarity Unipolar [facility] Lead Channel Setting Pacing Anode Terminal Can [facility] Lead Channel Setting Sensing Cathode Location Left Ventricle [facility] Lead Channel Setting Sensing Cathode Terminal Tip [facility] Lead Channel Setting Pacing Pulse Width 0.4 ms [facility] Lead Channel Setting Pacing Amplitude 1.25 V [facility] Lead Channel Setting Pacing Capture Mode Adaptive [facility] Zone Setting Type Category VF [facility] [...] Type Category AT/AF [facility] Atrial Impedance 418 ohm [facility] Atrial Impedance 361 ohm [facility] RV Impedance 532 ohm [facility] RV Impedance 437 ohm [facility] R Wave 15.375 mV [facility] R Wave 16 mV [facility] RV Threshold 0.625 V [facility] RV Threshold PW 0.4 ms [facility] LV Impedance 608 ohm [facility] LV Impedance 665 ohm [facility] LV Impedance 684 ohm [facility] LV Impedance 475 ohm [facility] LV Impedance 1,140 ohm [facility] LV Impedance 1,121 ohm [facility] LV Impedance 950 ohm [facility] LV Impedance 703 ohm [facility] LV Impedance 969 ohm [facility] LV Impedance 1,026 ohm [facility] LV Threshold 0.75 V [facility] LV Threshold PW 0.4 ms [facility] Battery Date Time of Measurements [id number] [facility] Battery Status [place] [facility] Battery FREIGHT ROUTER Trigger 2.595 [facility] Battery Remaining Longevity 134 mo [facility] Battery Voltage 3.04 V [facility] Nicolás Statistic Date Time Start +0000 [facility] Nicolás Statistic Date Time End +0000 [facility] AP (%) 0 % [facility] CERTIFIED MEDICAL AIDE (%) 98.55 % [facility] TWISTING PRESS OPERATOR Statistic LV Percent Paced 98.52 % [facility] AP/CERTIFIED MEDICAL AIDE % 0 % [facility] /CERTIFIED MEDICAL AIDE % 98.55 % [facility] AP/VS % 0 % [facility] /VS % 1.45 % [facility] TWISTING PRESS OPERATOR Statistic Date Time Start +0000 [facility] TWISTING PRESS OPERATOR Statistic Date Time End +0000 [facility] TWISTING PRESS OPERATOR Statistic TWISTING PRESS OPERATOR Percent Paced 98.52 % [facility] Therapy Statistic Recent Date Time Start +0000 [facility] Therapy Statistic Recent Date Time End +0000 [facility] Therapy Statistic Total Date Time Start +0000 [facility] Therapy Statistic Total Date Time End +0000 [facility] Episode Statistic Recent Count [...] HEALTHCARE Episode Statistic Recent Date Time Start +0000 [facility] Episode Statistic Recent Date Time End +0000 [facility] Episode Statistic Recent Date Time Start +0000 [facility] Episode Statistic Recent Date Time End +0000 [facility] Episode Statistic Recent Date Time Start +0000 [facility] Episode Statistic Recent Date Time End [id number] [facility] Episode Statistic Recent Date Time Start +0000 [facility] Episode Statistic Recent Date Time End +0000 [facility] Episode Statistic Recent Date Time Start +0000 [facility] Episode Statistic Recent Date Time End +0000 [facility] Episode Statistic Total Count 0 [facility] Episode Statistic Type Category AT/AF [facility] Episode Statistic Total Count 0 [facility] Episode Statistic Type Category Patient Activated [facility] Episode Statistic Total Count 0 [facility] Episode Statistic Type Category SVT [facility] Episode Statistic Total Count 0 [facility] Episode Statistic Type Category VT [facility] Episode Statistic Total Count 0 [facility] Episode Statistic Type Category VT [facility] Episode Statistic Total Date Time Start +0000 [facility] Episode Statistic Total Date Time End +0000 [facility] Episode Statistic Total Date Time Start +0000 [facility] Episode Statistic Total Date Time End +0000 [facility] Episode Statistic Total Date Time Start +0000 [facility] Episode Statistic Total Date Time End +0000 [facility] Episode Statistic Total Date Time Start +0000 [facility] Episode Statistic Total Date Time End +0000 [facility] Episode Statistic Total Date Time Start +0000 [facility] Episode Statistic Total Date Time End +0000 [facility] Episode Identifier 375 [facility] Episode Type Category VSE [facility] Episode Date Time [id number] [facility] Episode Duration 4 s [facility] Episode Identifier 374 [facility] Episode Type Category VSE [facility] Episode Date Time [id number] [facility] Episode Duration 7 s [facility] Episode Identifier 373 [facility] Episode Type Category VSE [facility] Episode Date Time [id number] [facility] Episode Duration 5 s [facility] Episode Identifier 372 [facility] Episode Type Category VSE [facility] Episode Date Time [id number] [facility] Episode Duration 5 s [facility] Episode Identifier 371 [facility] Episode Type Category VSE [facility] Episode Date Time [id number] [facility] Episode Duration 8 s [facility] Episode Identifier 370 [facility] Episode Type Category VSE [facility] Episode Date Time [id number] [facility] Episode Duration 7 s [facility] Episode Identifier 369 [facility] Episode Type Category VSE [facility] Episode Date Time +0000 [facility] Episode Duration 6 s [facility] 09/21/2023 10:3 2 AM EST Narrative [facility] - 09/30/2023 10:27 AM EST Cardiac Device Evaluation: Chip Perez presents today at the [facility] device clinic for routine device follow up. 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 Summary: Device function normal with acceptable lead measurements and battery status. Follow Up: Quarterly [facility] remotes, 1 year follow up w/ Dr. Garry Yancey, Cardiac Device Drafting Instructor [facility], [address] [place] [address] Jenifer Castañeda MD, MS CV CARDIAC SERVICES ORDERAB LES Final Result [address] [address] * DEVICE CHECK: PPM IN-HOME INTERROGATION (07/27/2023 9:14 AM EDT) Date Time Interrogation Session [id number] [facility] Implantable Pulse Generator Remediation Bioanalytics Consultant [employer] [facility] Implantable Pulse Generator Model [id number] Angle Quad TWISTING PRESS OPERATOR-P [facility] Implantable Pulse Generator Serial Number [id number] [facility] Type Interrogation Session Remote Scheduled [facility] Clinic Name Cardiac Device Clinic [facility] Implantable Pulse Generator Type Cardiac Resynchronization Therapy - Pacemaker [facility] Generator Implant Date [id number] [facility] Nicolás Setting Mode (NBG Code) VVIR [facility] Nicolás Setting Lower Rate Limit 60 {beats} /min [facility] Nicolás Setting Maximum Sensor Rate 130 {beats} /min [facility] Lead Channel Setting Sensing Polarity Bipolar [facility] Lead Channel Setting Sensing Anode Location Right Atrium [facility] Lead Channel Setting Sensing Anode Terminal Ring [facility] Lead Channel Setting Sensing Cathode Location Right Atrium [facility] Lead Channel Setting Sensing Cathode Terminal Tip [facility] Lead Channel Setting Sensing Sensitivity Off [facility] Lead Channel Setting Sensing Polarity Bipolar [facility] Lead Channel Setting Sensing Anode Location Right Ventricle [facility] Lead Channel Setting Sensing Anode Terminal Ring [facility] Lead Channel Setting Sensing Cathode Location Right Ventricle [facility] Lead Channel Setting Sensing Cathode Terminal Tip [facility] Lead Channel Setting Sensing Sensitivity 2.8 mV [facility] Ventricular chambers paced during TWISTING PRESS OPERATOR pacing. BiV [facility] TWISTING PRESS OPERATOR LV-RV Delay 20 ms [facility] [...] Lead Channel Setting Pacing Amplitude 2 V [facility] Lead Channel Setting Pacing Capture Mode Adaptive [facility] Lead Channel Setting Pacing Polarity Unipolar [facility] Lead Channel Setting Pacing Anode Terminal Can [facility] Lead Channel Setting Sensing Cathode Location Left Ventricle [facility] Lead Channel Setting Sensing Cathode Terminal Tip [facility] Lead Channel Setting Pacing Pulse Width 0.4 ms [facility] Lead Channel Setting Pacing Amplitude 1.25 V [facility] Lead Channel Setting Pacing Capture Mode Adaptive [facility] Zone Setting Type Category VF [facility] [...] Type Category AT/AF [facility] Atrial Impedance 437 ohm [facility] Atrial Impedance 342 ohm [facility] RV Impedance 437 ohm [facility] RV Impedance 361 ohm [facility] R Wave 17.625 mV [facility] R Wave 17.625 mV [facility] RV Threshold 0.625 V [facility] RV Threshold PW 0.4 ms [facility] LV Impedance 513 ohm [facility] LV Impedance 627 ohm [facility] LV Impedance 627 ohm [facility] LV Impedance 475 ohm [facility] LV Impedance 1,007 ohm [facility] LV Impedance 1,007 ohm [facility] LV Impedance 855 ohm [facility] LV Impedance 703 ohm [facility] LV Impedance 988 ohm [facility] LV Impedance 988 ohm [facility] LV Threshold 0.625 V [facility] LV Threshold PW 0.4 ms [facility] Battery Date Time of Measurements [id number] [facility] Battery Status [place] [facility] Battery FREIGHT ROUTER Trigger 2.595 [facility] Battery Remaining Longevity 131 mo [facility] Battery Voltage 3.06 V [facility] Nicolás Statistic Date Time Start +0000 [facility] Nicolás Statistic Date Time End [id number] [facility] AP (%) 0 % [facility] CERTIFIED MEDICAL AIDE (%) 98.3 % [facility] TWISTING PRESS OPERATOR Statistic LV Percent Paced 98.27 % [facility] AP/CERTIFIED MEDICAL AIDE % 0 % [facility] /CERTIFIED MEDICAL AIDE % 98.3 % [facility] AP/VS % 0 % [facility] /VS % 1.7 % [facility] TWISTING PRESS OPERATOR Statistic Date Time Start +0000 [facility] TWISTING PRESS OPERATOR Statistic Date Time End [id number] [facility] TWISTING PRESS OPERATOR Statistic TWISTING PRESS OPERATOR Percent Paced 98.27 % [facility] Therapy Statistic Recent Date Time Start +0000 [facility] Therapy Statistic Recent Date Time End [id number] [facility] Therapy Statistic Total Date Time Start [id number]+0000 [facility] Therapy Statistic Total Date Time End [id number]+0000 [facility] Episode Statistic Recent Count [...] HEALTHCARE Episode Statistic Recent Date Time Start +0000 [facility] Episode Statistic Recent Date Time End [id number] [facility] Episode Statistic Recent Date Time Start +0000 [facility] Episode Statistic Recent Date Time End [id number] [facility] Episode Statistic Recent Date Time Start +0000 [facility] Episode Statistic Recent Date Time End [id number] [facility] Episode Statistic Recent Date Time Start +0000 [facility] Episode Statistic Recent Date Time End [id number]+0000 [facility] Episode Statistic Recent Date Time Start +0000 [facility] Episode Statistic Recent Date Time End [id number]+0000 [facility] Episode Statistic Total Count 0 [facility] Episode Statistic Type Category AT/AF [facility] Episode Statistic Total Count 0 [facility] Episode Statistic Type Category Patient Activated [facility] Episode Stat[facility] Total Count 0 [facility] Episode Statistic Type Category SVT [facility] Episode Statistic Total Count 0 [facility] Episode Statistic Type Category VT [facility] Episode Statistic Total Count 0 [facility] Episode Statistic Type Category VT [facility] Episode Statistic Total Date Time Start +0000 [facility] Episode Statistic Total Date Time End [id number] [facility] Episode Statistic Total Date Time Start [id number]+0000 [facility] Episode Statistic Total Date Time End [id number]+0000 [facility] Episode Statistic Total Date Time Start [id number] [facility] Episode Statistic Total Date Time End [id number] [facility] Episode Statistic Total Date Time Start [id number] [facility] Episode Statistic Total Date Time End [id number] [facility] Episode Statistic Total Date Time Start [id number] [facility] Episode Statistic Total Date Time End [id number] [facility] Episode Identifier 302 [facility] Episode Type Category VSE [facility] Episode Date Time [id number] [facility] Episode Duration 10 s [facility] Episode Identifier 301 [facility] Episode Type Category VSE [facility] Episode [facility] Time [id number] [facility] Episode Duration 7 s [facility] Episode Identifier 300 [facility] Episode Type Category VSE [facility] Episode Date Time [id number] [facility] Episode Duration 7 s [facility] Episode Identifier 299 [facility] Episode Type Category VSE [facility] Episode Date Time [id number] [facility] Episode Duration 5 s [facility] Episode Identifier 298 [facility] Episode Type Category VSE [facility] Episode Date Time [id number] [facility] Episode Duration 6 s [facility] Episode Identifier 297 [facility] Episode Type Category VSE [facility] Episode Date Time [id number] [facility] Episode Duration 6 s [facility] Episode Identifier 296 [facility] Episode Type Category VSE [facility] Episode Date Time [id number] [facility] Episode Duration 7 s [facility] 07/26/2023 11:2 7 PM EDT Narrative [facility] - 07/28/2023 7:46 AM EDT A remote CIED transmission was received and reviewed on the following patient: Patient Name Chip Perez Summary Pacemaker Interrogation. All available lead measurements are stable. Events since last evaluation show (0) detections. Estimated battery longevity ~ 10.9 years. AP 0% CERTIFIED MEDICAL AIDE 98% Recheck in 3 months. us Jenifer Castañeda MD, MS CV CARDIAC SERVICES ORDERAB LES Final Result [facility] [address] [place] [address] * DEVICE CHECK: PPM IN-HOME INTERROGATION (05/09/2023 1:53 PM EDT) Date Time Interrogation Session [id number] [facility] Implantable Pulse Generator Remediation Bioanalytics Consultant [employer] [facility] Implantable Pulse Generator Model [id number] Angle Quad TWISTING PRESS OPERATOR-P [facility] Implantable Pulse Generator Serial Number [id number] [facility] Type Interrogation Session Remote Patient Initiated [facility] Clinic Name Cardiac Device Clinic [facility] Implantable Pulse Generator Type Cardiac Resynchronization Therapy - Pacemaker [facility] Generator Implant Date [id number] [facility] Nicolás Setting Mode (NBG Code) VVIR [facility] Nicolás Setting Lower Rate Limit 60 {beats} /min [facility] Nicolás Setting Maximum Sensor Rate 130 {beats} /min [facility] Lead Channel Setting Sensing Polarity Bipolar [facility] Lead Channel Setting Sensing Anode Location Right Atrium [facility] Lead Channel Setting Sensing Anode Terminal Ring [facility] Lead Channel Setting Sensing Cathode Location Right Atrium [facility] Lead Channel Setting Sensing Cathode Terminal Tip [facility] Lead Channel Setting Sensing Sensitivity Off [facility] Lead Channel Setting Sensing Polarity Bipolar [facility] Lead Channel Setting Sensing Anode Location Right Ventricle [facility] Lead Channel Setting Sensing Anode Terminal Ring [facility] Lead Channel Setting Sensing Cathode Location Right Ventricle [facility] Lead Channel Setting Sensing Cathode Terminal Tip [facility] Lead Channel Setting Sensing Sensitivity 2.8 mV [facility] Ventricular chambers paced during TWISTING PRESS OPERATOR pacing. BiV [facility] TWISTING PRESS OPERATOR LV-RV Delay 20 ms [facility] Lead Channel Setting Pacing Polarity Bipolar [facility] Lead Channel Setting Pacing Anode Location Right Ventricle [facility] Lead Channel Setting Pacing Anode Terminal Ring [facility] Lead Channel Setting Sensing Cathode Location Right Ventricle [facility] Lead Channel Setting Sensing Cathode Terminal Tip [facility] Lead Channel Setting Pacing Pulse Width 0.4 ms [facility] Lead Channel Setting Pacing Amplitude 2 V [facility] Lead Channel Setting Pacing Capture Mode Adaptive [facility] Lead Channel Setting Pacing Polarity Unipolar [facility] Lead Channel Setting Pacing Anode Terminal Can [facility] Lead Channel Setting Sensing Cathode Location Left Ventricle [facility] Lead Channel Setting Sensing Cathode Terminal Tip [facility] Lead Channel Setting Pacing Pulse Width 0.4 ms [facility] Lead Channel Setting Pacing Amplitude 1.25 V [facility] Lead Channel Setting Pacing Capture Mode Adaptive [facility] Zone Setting Type Category VF [facility] [...] Type Category AT/AF [facility] Atrial Impedance 437 ohm [facility] Atrial Impedance 342 ohm [facility] RV Impedance 437 ohm [facility] RV Impedance 361 ohm [facility] R Wave 16.375 mV [facility] R Wave 16.375 mV [facility] RV Threshold 0.625 V [facility] RV Threshold PW 0.4 ms [facility] LV Impedance 570 ohm [facility] LV Impedance 627 ohm [facility] LV Impedance 646 ohm [facility] LV Impedance 475 ohm [facility] LV Impedance 1,064 ohm [facility] LV Impedance 1,083 ohm [facility] LV Impedance 931 ohm [facility] LV Impedance 722 ohm [facility] LV Impedance 969 ohm [facility] LV Impedance 988 ohm [facility] LV Threshold 0.625 V [facility] LV Threshold PW 0.4 ms [facility] Battery Date Time of Measurements [id number] [facility] Battery Status [place] [facility] Battery FREIGHT ROUTER Trigger 2.595 [facility] Battery Remaining Longevity 134 mo [facility] Battery Voltage 3.10 V [facility] Nicolás Statistic Date Time Start [id number] [facility] Nicolás Statistic Date Time End [id number] [facility] AP (%) 0 % [facility] CERTIFIED MEDICAL AIDE (%) 98.6 % [facility] TWISTING PRESS OPERATOR Statistic LV Percent Paced 98.57 % [facility] AP/CERTIFIED MEDICAL AIDE % 0 % [facility] /CERTIFIED MEDICAL AIDE % 98.6 % [facility] AP/VS % 0 % [facility] /VS % 1.4 % [facility] TWISTING PRESS OPERATOR Statistic Date Time Start +0000 [facility] TWISTING PRESS OPERATOR Statistic Date Time End +0000 [facility] TWISTING PRESS OPERATOR Statistic TWISTING PRESS OPERATOR Percent Paced 98.57 % [facility] Therapy Statistic Recent Date Time Start +0000 [facility] Therapy Statistic Recent Date Time End +0000 [facility] Therapy Statistic Total Date Time Start +0000 [facility] Therapy Statistic Total Date Time End +0000 [facility] Episode Statistic Recent Count [...] HEALTHCARE Episode Statistic Recent Date Time Start +0000 [facility] Episode Statistic Recent Date Time End +0000 [facility] Episode Statistic Recent Date Time Start +0000 [facility] Episode Statistic Recent Date Time End +0000 [facility] Episode Statistic Recent Date Time Start +0000 [facility] Episode Statistic Recent Date Time End +0000 [facility] Episode Statistic Recent Date Time Start +0000 [facility] Episode Statistic Recent Date Time End +0000 [facility] Episode Statistic Recent Date Time Start +0000 [facility] Episode Statistic Recent Date Time End +0000 [facility] Episode Statistic Total Count 0 [facility] Episode Statistic Type Category AT/AF [facility] Episode Statistic Total Count 0 [facility] Episode Statistic Type Category Patient Activated [facility] Episode Statistic Total Count 0 [facility] Episode Statistic Type Category SVT [facility] Episode Statistic Total Count 0 [facility] Episode Statistic Type Category VT [facility] Episode Statistic Total Count 0 [facility] Episode Statistic Type Category VT [facility] Episode Statistic Total Date Time Start +0000 [facility] Episode Statistic Total Date Time End [id number] [facility] Episode Statistic Total Date Time Start [id number] [facility] Episode Statistic Total Date Time End [id number] [facility] Episode Statistic Total Date Time Start [id number] [facility] Episode Statistic Total Date Time End [id number] [facility] Episode Statistic Total Date Time Start [id number] [facility] Episode Statistic Total Date Time End +0000 [facility] Episode Statistic Total Date Time Start [id number] [facility] Episode Statistic Total Date Time End +0000 [facility] Episode Identifier 200 [facility] Episode Type Category VSE [facility] Episode Date Time [id number] [facility] Episode Duration 6 s [facility] Episode Identifier 199 [facility] Episode Type Category VSE [facility] Episode Date Time [id number] [facility] Episode Duration 6 s [facility] Episode Identifier 198 [facility] Episode Type Category VSE [facility] Episode Date Time [id number] [facility] Episode Duration 7 s [facility] Episode Identifier 197 [facility] Episode Type Category VSE [facility] Episode Date Time [id number] [facility] Episode Duration 7 s [facility] Episode Identifier 196 [facility] Episode Type Category VSE [facility] Episode Date Time [id number] [facility] Episode Duration 6 s [facility] Episode Identifier 195 [facility] Episode Type Category VSE [facility] Episode Date Time [id number] [facility] Episode Duration 6 s [facility] Episode Identifier 194 [facility] Episode Type Category VSE [facility] Episode Date Time [id number] [facility] Episode Duration 7 s [facility] 05/07/2023 10:3 0 AM EDT Narrative [facility] - 06/06/2023 6:04 PM EDT A remote CIED transmission was received and reviewed on the following patient: Patient Name Chip Perez Summary Pacemaker Interrogation. All available lead measurements are stable. Events since last evaluation show (0) detections. Estimated battery longevity ~ 11.2 years. AP: 0.0% CERTIFIED MEDICAL AIDE: 98.6% Recheck in 3 months. us Jenifer Castañeda MD, MS CV CARDIAC SERVICES ORDERAB LES Final Result [facility] [address] [place] [address] * DEVICE CHECK: PPM IN-HOME INTERROGATION (02/04/2023 4:45 PM EDT) Date Time Interrogation Session [id number] [facility] Implantable Pulse Generator Remediation Bioanalytics Consultant [employer] [facility] Implantable Pulse Generator Model [id number] Angle Quad TWISTING PRESS OPERATOR-P [facility] Implantable Pulse Generator Serial Number [id number] [facility] Type Interrogation Session Remote Patient Initiated [facility] Clinic Name Cardiac Device Clinic [facility] Implantable Pulse Generator Type Cardiac Resynchronization Therapy - Pacemaker [facility] Generator Implant Date [id number] [facility] Nicolás Setting Mode (NBG Code) VVIR [facility] Nicolás Setting Lower Rate Limit 60 {beats} /min [facility] Nicolás Setting Maximum Sensor Rate 130 {beats} /min [facility] Lead Channel Setting Sensing Polarity Bipolar [facility] Lead Channel Setting Sensing Anode Location Right Atrium [facility] Lead Channel Setting Sensing Anode Terminal Ring [facility] Lead Channel Setting Sensing Cathode Location Right Atrium [facility] Lead Channel Setting Sensing Cathode Terminal Tip [facility] Lead Channel Setting Sensing Sensitivity Off [facility] Lead Channel Setting Sensing Polarity Bipolar [facility] Lead Channel Setting Sensing Anode Location Right Ventricle [facility] Lead Channel Setting Sensing Anode Terminal Ring [facility] Lead Channel Setting Sensing Cathode Location Right Ventricle [facility] Lead Channel Setting Sensing Cathode Terminal Tip [facility] Lead Channel Setting Sensing Sensitivity 2.8 mV [facility] Ventricular chambers paced during TWISTING PRESS OPERATOR pacing. BiV [facility] TWISTING PRESS OPERATOR LV-RV Delay 20 ms [facility] Lead Channel Setting Pacing Polarity Bipolar [facility] Lead Channel Setting Pacing Anode Location Right Ventricle [facility] Lead Channel Setting Pacing Anode Terminal Ring [facility] Lead Channel Setting Sensing Cathode Location Right Ventricle [facility] Lead Channel Setting Sensing Cathode Terminal Tip [facility] Lead Channel Setting Pacing Pulse Width 0.4 ms [facility] Lead Channel Setting Pacing Amplitude 2 V [facility] Lead Channel Setting Pacing Capture Mode Adaptive [facility] Lead Channel Setting Pacing Polarity Unipolar [facility] Lead Channel Setting Pacing Anode Terminal Can [facility] Lead Channel Setting Sensing Cathode Location Left Ventricle [facility] Lead Channel Setting Sensing Cathode Terminal Tip [facility] Lead Channel Setting Pacing Pulse Width 0.4 ms [facility] Lead Channel Setting Pacing Amplitude 1.25 V [facility] Lead Channel Setting Pacing Capture Mode Adaptive [facility] Zone Setting Type Category VF [facility] [...] Type Category AT/AF [facility] Atrial Impedance 437 ohm [facility] Atrial Impedance 342 ohm [facility] RV Impedance 456 ohm [facility] RV Impedance 361 ohm [facility] R Wave 18.375 mV [facility] R Wave 18.375 mV [facility] RV Threshold 0.5 V [facility] RV Threshold PW 0.4 ms [facility] LV Impedance 551 ohm [facility] LV Impedance 627 ohm [facility] LV Impedance 608 ohm [facility] LV Impedance 456 ohm [facility] LV Impedance 1,064 ohm [facility] LV Impedance 1,064 ohm [facility] LV Impedance 893 ohm [facility] LV Impedance 703 ohm [facility] LV Impedance 931 ohm [facility] LV Impedance 912 ohm [facility] LV Threshold 0.625 V [facility] LV Threshold PW 0.4 ms [facility] Battery Date Time of Measurements + [facility] Battery Status [place] [facility] Battery FREIGHT ROUTER Trigger 2.595 [facility] Battery Remaining Longevity 138 mo [facility] Battery Voltage 3.15 V [facility] Nicolás Statistic Date Time Start + [facility] Nicolás Statistic Date Time End + [facility] AP (%) 0 % [facility] CERTIFIED MEDICAL AIDE (%) 99.15 % [facility] TWISTING PRESS OPERATOR Statistic LV Percent Paced 99.12 % [facility] AP/CERTIFIED MEDICAL AIDE % 0 % [facility] /CERTIFIED MEDICAL AIDE % 99.15 % [facility] AP/VS % 0 % [facility] /VS % 0.85 % [facility] TWISTING PRESS OPERATOR Statistic Date Time Start + [facility] TWISTING PRESS OPERATOR Statistic Date Time End + [facility] TWISTING PRESS OPERATOR Statistic TWISTING PRESS OPERATOR Percent Paced 99.12 % [facility] Therapy Statistic Recent Date Time Start + [facility] Therapy Statistic Recent Date Time End +0000 [facility] Therapy Statistic Total Date Time Start +0000 [facility] Therapy Statistic Total Date Time End +0000 [facility] Episode Statistic Recent Count [...] HEALTHCARE Episode Statistic Recent Date Time Start +0000 [facility] Episode Statistic Recent Date Time End +0000 [facility] Episode Statistic Recent Date Time Start +0000 [facility] Episode Statistic Recent Date Time End +0000 [facility] Episode Statistic Recent Date Time Start +0000 [facility] Episode Statistic Recent Date Time End +0000 [facility] Episode Statistic Recent Date Time Start +0000 [facility] Episode Statistic Recent Date Time End +0000 [facility] Episode Statistic Recent Date Time Start +0000 [facility] Episode Statistic Recent Date Time End +0000 [facility] Episode Statistic Total Count 0 [facility] Episode Statistic Type Category AT/AF [facility] Episode Statistic Total Count 0 [facility] Episode Statistic Type Category Patient Activated [facility] Episode Statistic Total Count 0 [facility] Episode Statistic Type Category SVT [facility] Episode Statistic [facility] Count 0 [facility] Episode Statistic Type Category VT [facility] Episode Stat[facility] Total Count 0 [facility] Episode Statistic Type Category VT [facility] Episode Statistic Total Date Time Start [id number] [facility] Episode Statistic Total Date Time End +0000 [facility] Episode Statistic Total Date Time Start +0000 [facility] Episode Statistic Total Date Time End +0000 [facility] Episode Statistic Total Date Time Start +0000 [facility] Episode Statistic Total Date Time End +0000 [facility] Episode Statistic Total Date Time Start +0000 [facility] Episode Statistic Total Date Time End [id number] [facility] Episode Statistic Total Date Time Start [id number] [facility] Episode Statistic Total Date Time End +0000 [facility] Episode Identifier 100 [facility] Episode Type Category VSE [facility] Episode Date Time [id number] [facility] Episode Duration 6 s [facility] Episode Identifier 99 [facility] Episode Type Category VSE [facility] Episode Date Time [id number] [facility] Episode Duration 6 s [facility] Episode Identifier 98 [facility] Episode Type Category VSE [facility] Episode Date Time [id number] [facility] Episode Duration 7 s [facility] Episode Identifier 97 [facility] Episode Type Category VSE [facility] Episode Date Time [id number] [facility] Episode Duration 8 s [facility] Episode Identifier 96 [facility] Episode Type Category VSE [facility] Episode Date Time [id number] [facility] Episode Duration 6 s [facility] Episode Identifier 95 [facility] Episode Type Category VSE [facility] Episode Date Time [id number] [facility] Episode Duration 5 s [facility] Episode Identifier 94 [facility] Episode Type Category VSE [facility] Episode Date Time [id number] [facility] Episode Duration 7 s [facility] 02/04/2023 4:06 PM EDT Narrative [facility] - 02/08/2023 3:11 PM EDT A remote CIED transmission was received and reviewed on the following patient: Patient Name Chip Perez Summary Pacemaker Interrogation. All available lead measurements are stable. Events since last evaluation show (0) detections. Estimated battery longevity ~ 11.5 years. AP 0% CERTIFIED MEDICAL AIDE 99.2% Recheck in 3 months. us Jenifer Castañeda MD, MS CV CARDIAC SERVICES ORDERAB LES Final Result [facility] [address] [place] [address] * DEVICE CHECK: PPM IN-HOME INTERROGATION (11/03/2022 8:20 AM EST) Date Time Interrogation Session [id number] [facility] Implantable Pulse Generator Remediation Bioanalytics Consultant [employer] Implantable Pulse Generator Model [id number] Angle Quad TWISTING PRESS OPERATOR-P [facility] Implantable Pulse Generator Serial Number [id number] [facility] Type Interrogation Session Remote Patient Initiated [facility] Clinic Name Cardiac Device Clinic [facility] Implantable Pulse Generator Type Cardiac Resynchronization Therapy - Pacemaker [facility] Generator Implant Date [id number] [facility] Nicolás Setting Mode (NBG Code) VVIR [facility] Nicolás Setting Lower Rate Limit 60 {beats} /min [facility] Nicolás Setting Maximum Sensor Rate 130 {beats} /min [facility] Lead Channel Setting Sensing Polarity Bipolar [facility] Lead Channel Setting Sensing Anode Location Right Atrium [facility] Lead Channel Setting Sensing Anode Terminal Ring [facility] Lead Channel Setting Sensing Cathode Location Right Atrium [facility] Lead Channel Setting Sensing Cathode Terminal Tip [facility] Lead Channel Setting Sensing Sensitivity Off [facility] Lead Channel Setting Sensing Polarity Bipolar [facility] Lead Channel Setting Sensing Anode Location Right Ventricle [facility] Lead Channel Setting Sensing Anode Terminal Ring [facility] Lead Channel Setting Sensing Cathode Location Right Ventricle [facility] Lead Channel Setting Sensing Cathode Terminal Tip [facility] Lead Channel Setting Sensing Sensitivity 2.8 mV [facility] Ventricular chambers paced during TWISTING PRESS OPERATOR pacing. BiV [facility] TWISTING PRESS OPERATOR LV-RV Delay 20 ms [facility] Lead Channel Setting Pacing Polarity Bipolar [facility] Lead Channel Setting Pacing Anode Location Right Ventricle [facility] Lead Channel Setting Pacing Anode Terminal Ring [facility] Lead Channel Setting Sensing Cathode Location Right Ventricle [facility] Lead Channel Setting Sensing Cathode Terminal Tip [facility] Lead Channel Setting Pacing Pulse Width 0.4 ms [facility] Lead Channel Setting Pacing Amplitude 2 V [facility] Lead Channel Setting Pacing Capture Mode Adaptive [facility] Lead Channel Setting Pacing Polarity Unipolar [facility] Lead Channel Setting Pacing Anode Terminal Can [facility] Lead Channel Setting Sensing Cathode Location Left Ventricle [facility] Lead Channel Setting Sensing Cathode Terminal Tip [facility] Lead Channel Setting Pacing Pulse Width 0.4 ms [facility] Lead Channel Setting Pacing Amplitude 1.25 V [facility] Lead Channel Setting Pacing Capture Mode Adaptive [facility] Zone Setting Type Category VF [facility] Zone Setting Vendor Type Category V High Rate [facility] Zone Setting Type Category VT [facility] Zone Setting Vendor Type Category FastVT [facility] Zone Setting Type Category VT [facility] Zone Setting Vendor Type Category VT [facility] Zone Setting Type Category VT [facility] Zone Setting Vendor Type Category MonVT [facility] Zone Setting Status Monitor [facility] Zone Setting Detection Interval 400 ms [facility] Zone Setting Type Category ATRIAL_FIBRILLATION [facility] Zone Setting Vendor Type Category FastATAF [facility] Zone Setting Type Category AT/AF [facility] Atrial Impedance 437 ohm [facility] Atrial Impedance 342 ohm [facility] RV Impedance 475 ohm [facility] RV Impedance 399 ohm [facility] R Wave 18.625 mV [facility] R Wave 18.625 mV [facility] RV Threshold 0.625 V [facility] RV Threshold PW 0.4 ms [facility] LV Impedance 627 ohm [facility] LV Impedance 627 ohm [facility] LV Impedance 646 ohm [facility] LV Impedance 456 ohm [facility] LV Impedance 1,121 ohm [facility] LV Impedance 1,121 ohm [facility] LV Impedance 969 ohm [facility] LV Impedance 703 ohm [facility] LV Impedance 969 ohm [facility] LV Impedance 969 ohm [facility] LV Threshold 0.625 V [facility] LV Threshold PW 0.4 ms [facility] Battery Date Time of Measurements [facility] Battery Status OK [facility] Battery FREIGHT ROUTER Trigger 2.595 [facility] Battery Remaining Longevity 142 mo [facility] Battery Voltage 3.19 V [facility] Nicolás Statistic Date Time Start + [facility] Nicolás Statistic Date Time End + [facility] AP (%) 0 % [facility] CERTIFIED MEDICAL AIDE (%) 98.31 % [facility] TWISTING PRESS OPERATOR Statistic LV Percent Paced 98.28 % [facility] AP/CERTIFIED MEDICAL AIDE % 0 % [facility] /CERTIFIED MEDICAL AIDE % 98.31 % [facility] AP/VS % 0 % [facility] /VS % 1.69 % [facility] TWISTING PRESS OPERATOR Statistic Date Time Start + [facility] TWISTING PRESS OPERATOR Statistic Date Time End [facility] TWISTING PRESS OPERATOR Statistic TWISTING PRESS OPERATOR Percent Paced 98.28 % [facility] Therapy Statistic Recent Date Time Start +0000 [facility] Therapy Statistic Recent Date Time End + [facility] Therapy Statistic Total Date Time Start [id number] [facility] Therapy Statistic Total Date Time End [facility] Episode Statistic Recent Count [...] HEALTHCARE Episode Statistic Recent Date Time Start +0000 [facility] Episode Statistic Recent Date Time End +0000 [facility] Episode Statistic Recent Date Time Start +0000 [facility] Episode Statistic Recent Date Time End +0000 [facility] Episode Statistic Recent Date Time Start +0000 [facility] Episode Statistic Recent Date Time End +0000 [facility] Episode Statistic Recent Date Time Start +0000 [facility] Episode Statistic Recent Date Time End +0000 [facility] Episode Statistic Recent Date Time Start +0000 [facility] Episode Statistic Recent Date Time End +0000 [facility] Episode Statistic Total Count 0 [facility] Episode Statistic Type Category AT/AF [facility] Episode Statistic Total Count 0 [facility] Episode Statistic Type Category Patient Activated [facility] Episode Statistic Total Count 0 [facility] Episode Statistic Type Category SVT [facility] Episode Statistic Total Count 0 [facility] Episode Statistic Type Category VT [facility] Episode Statistic Total Count 0 [facility] Episode Statistic Type Category VT [facility] Episode Statistic Total Date Time Start +0000 [facility] Episode Statistic Total Date Time End +0000 [facility] Episode Statistic Total Date Time Start +0000 [facility] Episode Statistic Total Date Time End +0000 [facility] Episode Statistic Total Date Time Start +0000 [facility] Episode Statistic Total Date Time End +0000 [facility] Episode Statistic Total Date Time Start +0000 [facility] Episode Statistic Total Date Time End +0000 [facility] Episode Statistic Total Date Time Start +0000 [facility] Episode Statistic Total Date Time End +0000 [facility] Episode Identifier 79 [facility] Episode Type Category VSE [facility] Episode Date Time +0000 [facility] Episode Duration 7 s [facility] Episode Identifier 78 [facility] Episode Type Category VSE [facility] Episode Date Time +0000 [facility] Episode Duration 11 s [facility] Episode Identifier 77 [facility] Episode Type Category VSE [facility] Episode Date Time [id number] [facility] Episode Duration 6 s [facility] Episode Identifier 76 [facility] Episode Type Category VSE [facility] Episode Date Time [id number] [facility] Episode Duration 4 s [facility] Episode Identifier 75 [facility] Episode Type Category VSE [facility] Episode Date Time [id number] [facility] Episode Duration 7 s [facility] Episode Identifier 74 [facility] Episode Type Category VSE [facility] Episode Date Time [id number] [facility] Episode Duration 7 s [facility] Episode Identifier 73 [facility] Episode Type Category VSE [facility] Episode Date Time [id number] [facility] Episode Duration 7 s [facility] Episode Identifier 24 [facility] Episode Type Category VSE [facility] Episode Date Time [id number] [facility] Episode Duration 18 s [facility] 11/02/2022 3:18 PM EST [facility] - 11/05/2022 10:41 AM EST A remote CIED transmission was received and reviewed on the following patient: Patient Name Chip Perez Summary Pacemaker Interrogation. All available lead measurements are stable. Events since last evaluation show (0) detections. Estimated battery longevity ~ 11.9 years. Recheck in 3 months. Jenifer Castañeda MD, MS CV CARDIAC SERVICES ORDERAB LES Final Result [facility] [address] [place] [address] * DEVICE CHECK: PPM IN-PERSON PROGRAMMING MULTIPLE LEAD (07/28/2022 5:02 PM EDT) Date Time Interrogation Session [id number] [facility] Implantable Pulse Generator Remediation Bioanalytics Consultant Medtronic [facility] Implantable Pulse Generator Model [id number] Angle Quad TWISTING PRESS OPERATOR-P [facility] Implantable Pulse Generator Serial Number [id number] [facility] Type Interrogation Session In Clinic [facility] Clinic Name Cardiac Device Clinic [facility] Implantable Pulse Generator Type Cardiac Resynchronization Therapy - Pacemaker [facility] Generator Implant Date [id number] [facility] 07/28/2022 5:02 PM EDT Narrative [facility] - 08/02/2022 7:29 AM EDT Renee Pardo Cardiac Device Drafting Instructor Cardiovascular Division Arrhythmia Service, [address] [place] [address] Cardiac Device Evaluation: Chip Perez presents today at the [facility] device clinic for routine device follow up. Device Brand/Model: Medtronic Angle TWISTING PRESS OPERATOR-P Reason for Implant: Heart Block/CM Insertion site unremarkable. Battery: 11.7 yrs Mode: VVIR 60-130bpm % Pacing: CERTIFIED MEDICAL AIDE 99% Presenting Rhythm: BP 70s Underlying Rhythm: AF with slow ventricular rate 40s RV paced / 475 ohms / 0.75V @ 0.4ms LV 684ohms / 1V @ 0.4ms Events since last evaluation: NONE Programming Changes: temporary programming changes made for testing purposes only. Summary: Device function normal with acceptable lead measurements and battery status. Please see attached report for further details. Follow Up: Quarterly [facility] remotes, [address] Castañeda Jenifer Castañeda MD, MS CV CARDIAC SERVICES ORDERAB LES Final Result [facility] [address] [place] [address] documented in this encounter Visit Diagnoses Diagnosis Longstanding persistent atrial fibrillation- Primary Longstanding persistent atrial fibrillation Longstanding persistent atrial fibrillation Longstanding persistent atrial fibrillation Longstanding persistent atrial fibrillation Longstanding persistent atrial fibrillation Longstanding persistent atrial fibrillation Longstanding persistent atrial fibrillation Longstanding persistent atrial fibrillation Longstanding persistent atrial fibrillation Longstanding persistent atrial fibrillation Longstanding persistent atrial fibrillation Traumatic complete tear of right rotator cuff, subsequent encounter 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 It is not the complete legal health record.[facility]
--- OUTSIDE RECORDS SUMMARY | 2025-06-05 08:48 | XMS_ITS | Encounter Summary ---
Author Organization [facility] Address [address] [place] [phone] Phone Care Team Providers Care Machine Gun Mechanic Name Role Phone Carl Dawn MD Primary Care Provider Self-Referred, Patient Unavailable Unavailab le Encounter Details Date Type Department Care Team (Late st Contact Info) Description 09/18/2024 Procedure Pass [facility] Echocardiography [address] [place] [address] Social History Tobacco Use Types Packs/Day Years [...] (Latest Contact Info) Description 10/23/2022 Procedure Pass [facility] Cardio EP Device Monitoring [address] [place] [address] 11/03/2022 Procedure Pass [facility] Cardio EP Device Monitoring [address] [place] [address] 01/18/2023 Procedure Pass [facility] Cardio EP Device Monitoring [address] [place] [address] 04/22/2023 Procedure Pass [facility] Cardio EP Device Monitoring [address] [place] [address] 05/09/2023 Procedure Pass [facility] Cardio EP Device Monitoring [address] [place] [address] 07/13/2023 Procedure Pass [facility] Cardio EP Device Monitoring [address] [place] [address] 09/21/2023 Procedure Pass [facility] Cardio EP Device Monitoring [address] [place] [address] 12/07/2023 Procedure Pass [facility] Cardio EP Device Monitoring [address] [place] [address] 02/14/2024 Procedure Pass [facility] Cardio EP Device Monitoring [address] [place] [address] 06/20/2024 Procedure Pass [facility] Cardio EP Device Monitoring [address] [place] [address] 01/11/2025 Procedure Pass [facility] Cardio EP Device Monitoring [address] [place] [address] 04/12/2025 Procedure Pass [facility] Cardio EP Device Monitoring [address] [place] [address] 04/12/2025 Procedure Pass [facility] Cardio EP Device Monitoring [address] [place] [address] 06/14/2025 Procedure Pass [facility] [address] [place] [phone] 06/14/2025 7:45 AM EDT Hospital Encounter [facility] [address] [place] [address] Kobe Delgado MD [address] [place] [address] [email or web address] 06/14/2025 7:45 AM EDT Anesthesia Event [facility] [address] [place] [phone] Mike Oscar MD [address] [place] [address], [place] [address] [email or web address] [email or web address] Steiner, LUCIA [address] [place] [address] [email or web address] 06/14/2025 7:45 AM EDT - 06/14/2025 10:53 AM EDT Surgery [facility] [address] [place] [phone] Kobe Delgado MD [address] [address] [email or web address] REPAIR ROTATOR CUFF SHOULDER 06/26/2025 10:40 AM EDT Office Visit [facility] [place] of Orthopaedic Surgery, Sports Medicine Service [address] [facility], [address] [place] [address] Kobe Delgado MD [address] [place] [address] [email or web address] 07/26/2025 9:00 AM EDT Appointment [facility] Cardio EP Device Monitoring [address] [place] [address] Jenifer Castañead MD, MS [address] [address] [email or web address] 10/16/2025 11:00 AM EST Appointment [facility] Cardio EP Device Monitoring [address] [place] [address] Jenifer Castañeda MD, MS [address] [address] [email or web address] 10/16/2025 11:30 AM EST Office Visit [facility] [address] [place] [address] Jenifer Castañeda MD, MS [facility] [place] [address] [email or web address] Scheduled Procedures Name Priority Associated Diagnoses [...] documented as of this encounter Care Teams Machine Gun Mechanic Relationship Specialty Start Date End Date Carl Dawn MD [address] [place] [address] PCP - General Internal Medicine 02/04/22 Self-Referred, Patient 01/18/23 documented as of this encounter Additional Source Comments The information contained in this document represents components of the legal health record. It is not the complete legal health record.[facility]
--- OUTSIDE RECORDS SUMMARY | 2025-06-05 08:48 | XMS_ITS | Encounter Summary ---
Author Organization [facility] Address [address] [place] [address] Care Team Providers Care Director Digital Analytics Name Role Phone Carl Dawn MD Primary Care Provider Encounter Details Date Type Department Care Team (Late st Contact Info) Description 11/24/2022 Erroneous Encounter [facility] [address] [place], [place] [phone] Provider, MD Debbie Social History Tobacco Use Types Packs/Day Years [...] AM EDT [facility] [address] [place] [address] Oumar Godfrey MD [address] [facility] [address] [place] [address] documented as of this encounter Visit Diagnoses Not on filedocumented in this encounter Care Teams Director Digital Analytics Relationship Specialty Start Date End Date Carl Dawn MD [address] [place] [address] PCP - General 04/23/21 documented as of this encounter
--- OUTSIDE RECORDS SUMMARY | 2025-06-05 08:48 | XMS_ITS | Encounter Summary ---
Author Organization [facility] Address [address] [place] [address] Care Team Providers Care Centrifugal Extractor Operator Name Role Phone Carl Dawn MD Primary Care Provider Encounter Details Date Type Department Care Team (Late st Contact Info) Description 02/27/2025 Scanned Document [facility] [address] [address] Anthony Taveras MD [address] [place] [address] Social History Tobacco Use Types Packs/Day Years [...] 8:00 AM EDT [facility] [address] [facility] [address] [place] [address] Oumar Godfrey MD [address] [place] [address] documented as of this encounter Visit Diagnoses Not on filedocumented in this encounter Care Teams Centrifugal Extractor Operator Relationship Specialty Start Date End Date Carl Dawn MD [address] [address] PCP - General 04/23/21 documented as of this encounter
--- OUTSIDE RECORDS SUMMARY | 2025-06-05 08:48 | XMS_ITS | Patient Health Record ---
[facility] Address [address] [place] [address] Care Team Providers Care Corporate Tax Preparer Name Role Phone Nereyda LOZA, Carl Primary Care Provider Unavail able Javier Sultana Unavailable [phone] Allergies Allergen (clinical drug ingredient) Drug/Non Drug Allergy documented on EMR Reaction Allergy Type Onset Date Status Penicillin Unknown Drug Allergy Active Reason For Referral No Information Medications Medication SIG (Take, Route, Frequency, Duration) Notes Start Date End Date Status CeleXA 10 MG 2 tablets Orally Once a day Not-Taking Irbesartan Active Osteo Bi-Flex Regular Strength Not-Taking Atorvastatin Calcium 20 MG 1 tablet Orally Once a day Not-Taking Chlorthalidone 12.5 mg qd Acti ve Diclofenac Not-Takin g Calcium Active Fish Oil Active Ocuvite Active Rosuvastatin Calcium Active Co Q 10 Active Social History Tobacco Use: Social History Observation Description Date Details (start date - stop date) Former Smoker NA - NA Tobacco Use/Smoking Question Answer Notes Are you a: former smoker When did you stop smoking? 1970 Additional Findings: Tobacco Non-User Current no n-smoker Tobacco use other than smoking: Question Answer Notes Are you an other tobacco user? No Plan Of Treatment Pending Test Test Name Order Date X ray : Foot, left 2V 06/18/2016 X ray : Foot, right 2V 06/18/2016 53416-Pyjw Destruction, -12/09/2017 85729-Tbcf Destruction, -01/03/2018 66792-Dlle Destruction, 1-02/07/2018 31607-Gmbg Destruction, -03/14/2018 43088-Mqmr Destruction, -04/11/2018 81003, [id number]-SSGPL/INJECT, JOINT/BURSA 0 11/12/2016 46037, J0702- Neuroma/Injection 10/08/19 17 12639, J0702- Neuroma/Injection 11/12/19 17 Insurance Providers Payer Name Payer Address Payer Phone Subscriber Number Group Number Insured Name Patient Relationship to Insured Coverage Start Date Coverage End Date [employer] Medicare-[id number] [address] [place] [address] [id number] Chip Perez Self - patient is the insured Medical (General) History Medical History History ICD Code Headaches High blood pressure Measles Mumps Chicken pox Hypercholesterolemia Surgical History Surgery Date(Month/Year) Sub Acromial Decompression- Right Should er 09/12/2017 Hospitalization History Reason Date(Month/Year)
--- OUTSIDE RECORDS SUMMARY | 2025-06-05 08:48 | XMS_ITS | Encounter Summary ---
Author Organization [facility] Address [address] [place] [address] Care Team Providers Care Shale Miner Blasting Name Role Phone Carl Dawn MD Primary Care Provider Encounter Details Date Type Department Care Team (Late st Contact Info) Description 02/21/2025 Scanned Document [facility] [address] [address] Anthony Taveras MD [address] [place] [phone] Social History Tobacco Use Types Packs/Day Years [...] 8:00 AM EDT [facility] 7 [facility] [address] [place] [address] Oumar Godfrey MD [address] [place] [address] documented as of this encounter Visit Diagnoses Not on filedocumented in this encounter Care Teams Shale Miner Blasting Relationship Specialty Start Date End Date Carl Dawn MD [address] [address] PCP - General 04/23/21 documented as of this encounter
--- OUTSIDE RECORDS SUMMARY | 2025-06-05 08:48 | XMS_ITS | Encounter Summary ---
Author Organization [facility] Address [address] [place] [address] Care Team Providers Care Cop Examiner Name Role Phone Carl Dawn MD Primary Care Provider Reason for Visit * Reason Comments Medication Refill Encounter Details Date Type Department Care Team (Late st Contact Info) Description 03/04/2025 Refill [facility] [address] [address] Anthony Taveras MD [address] [place] [phone] Anterior dislocation of right shoulder, initial encounter Social History Tobacco Use Types Packs/Day [...] 8:00 AM EDT [facility] [address] [address] Oumar Godfrey MD [address] [place] [address] documented as of this encounter Visit Diagnoses Diagnosis Anterior dislocation of right shoulder, initial encounter documented in this encounter Care Teams Cop Examiner Relationship Specialty Start Date End Date Carl Dawn MD [address] [facility] [address] [place] [address] PCP - General 04/23/21 documented as of this encounter
== END 2025-06-05 09:05 | disposition home or self-care (01) ==
LOC: HO.HPS 08:22
PROVIDERS: PCP Pediatrics; Visit Provider Hospitalist
DX: R06.09 Other forms of dyspnea (principal); G47.33 Obstructive sleep apnea (adult) (pediatric); J44.89 Other specified chronic obstructive pulmonary disease; R91.1 Solitary pulmonary nodule; J31.0 Chronic rhinitis; D75.1 Secondary polycythemia; Z01.811 Encounter for preprocedural respiratory examination
CPT/HCPCS: 99214; G2211

== ENCOUNTER → 2025-06-05 08:22 | Outpatient (BNVA) | payer MEDICARE, SELFPAY | PROVIDERS: PCP Pediatrics; Visit Provider Hospitalist | DX: Z01.811 Encounter for preprocedural respiratory examination (principal); R91.1 Solitary pulmonary nodule; J31.0 Chronic rhinitis; D75.1 Secondary polycythemia; R06.09 Other forms of dyspnea; G47.33 Obstructive sleep apnea (adult) (pediatric) | CPT/HCPCS: 99212 ==